=== PATIENT | female | born 1975 | race Caucasian/White ===

== ENCOUNTER → 2018-04-06 | Outpatient (CLI) | payer OTHER ==
[2018-04-08 13:09] LABS: HPV 16 Negative (Negative); HPV 18 Negative (Negative); HPV OTHER HR TYPES Negative (Negative)
== END | disposition home or self-care (01) ==
LOC: LAB SHORT 15:44 → LAB 15:44
PROVIDERS: Obstetrics & Gynecology
DX: Z01.419 Encounter for gynecological examination (general) (routine) without abnormal findings (principal)
CPT/HCPCS: 87624; G0123

== ENCOUNTER 2018-07-28 12:10 | Inpatient (IN) | payer OTHER ==
[~2018-07-28] VITALS: Ht 162.6 cm; Wt 86.9 kg
[2018-07-28] MEDS ORDERED: LEVSOD75 PO (12:32)
[2018-07-28] MEDS ORDERED: FURO20 PO (12:33)
[2018-07-28] MEDS ORDERED: POTCHL20ER PO (12:34)
[2018-07-28] MEDS ORDERED: VIENVA-28 TABL1 EACH PO (12:47)
[2018-07-28] MEDS ORDERED: PRED20 PO (12:47)
[2018-07-28 13:14] LABS: BASOPHILS ABSOLUTE AUTO 0.02 K/mm3 (0.00-0.23); BASOPHILS PERCENT AUTO 0 % (0-2); EOSINOPHILS ABSOLUTE AUTO 0.54 K/mm3 (0.00-0.68); EOSINOPHILS PERCENT AUTO 3 % (0-6); Hematocrit 42.2 % (33.0-51.0); Hemoglobin 13.4 g/dL (11.5-16.0); IMMATURE GRAN ABSOLUTE AUTO 0.12 K/mm3 (0.00-0.10); IMMATURE GRAN PERCENT AUTO 1 % (0-1); LYMPHOCYTES ABSOLUTE AUTO 4.49 K/mm3 (0.84-5.20); LYMPHOCYTES PERCENT AUTO 23 % (21-46); MONOCYTES ABSOLUTE AUTO 1.42 K/mm3 (0.16-1.47); MONOCYTES PERCENT AUTO 7 % (4-13); Mean Corpuscular HGB Conc 31.8 g/dL (31.5-36.5); Mean Corpuscular Volume 101 fL (80-100); Mean Platelet Volume 10.8 fL (9.1-12.4); NEUTROPHILS ABSOLUTE AUTO 12.63 K/mm3 (1.96-9.15); NEUTROPHILS PERCENT AUTO 66 % (41-73); NRBC ABSOLUTE 0.07 K/mm3 (0.00-0.02); NRBC Auto 0.4 /100 WBC (0.0-0.2); Platelet Count 117 K/mm3 (150-400); RDW Coefficient Variation 14.5 % (11.7-14.2); RDW Standard Deviation 53.3 fL (35.1-46.3); Red Blood Cell Count 4.19 M/mm3 (3.80-5.20); White Blood Cell Count 19.22 K/mm3 (4.00-11.30)
--- NOTE | 2018-07-28 13:37 | NUR ---
ECHOCARDIOGRAM COMPLETE
[2018-07-28 13:50] LABS: Alanine Aminotransfer (ALT/SGP 572 U/L (12-78); Albumin, Blood 3.2 g/dL (3.4-5.0); Albumin/Globulin Ratio 1.1 (0.8-1.8); Alk Phos 117 U/L (50-136); Anion Gap 12 mmol/L (6-16); Aspartate Aminotrans (AST/SGOT 124 U/L (12-37); Bilirubin, Total 1.9 mg/dL (0.1-1.0); Blood Urea Nitrogen 24 mg/dL (8-24); Bun/Creatinine Ratio 26.1 (12.0-20.0); CO2, Blood 21 mmol/L (21-32); Calcium, Blood 8.2 mg/dL (8.5-10.1); Chloride, Blood 105 mmol/L (98-108); Creatinine, Blood 0.92 mg/dL (0.40-1.00); Globulin, Blood 2.8 g/dL (2.2-4.0); Glomerular Filtration Rate >60 (60-); Glucose, Blood 135 mg/dL (70-99); Potassium, Blood 3.9 mmol/L (3.5-5.5); Sodium, Blood 138 mmol/L (136-145); Thyroxine (T4) 12.2 ug/dL (4.8-13.9)
[2018-07-28 18:04] LABS: International Normalized Ratio 1.66; Prothrombin Time Results 16.8 Sec (9.7-11.5)
--- NOTE | 2018-07-28 18:45 | NUR ---
SHIFT SUMMARY PT A DIRECT ADMIT THIS AFTERNOON FROM DR. GUTIERREZ'S OFFICE. PT ALERT AND ORIENTED X3. PT HAS HAD A CTA THAT WAS FOUND TO HAVE PULMONARY EMBOLISM. DR. GUTIERREZ AWARE AND PE HEPARIN PROTOCOL TO BE STARTED PER PHARMACY. DR. GASPAR WAS CONSULTED AND ASSESSED PT THIS EVENING. NEW ORDERS FOR IV LASIX BID TO BE GIVEN. PT REPORTS PAIN IN LEFT LEG WITH AMBULATION BUT REPORTS NO PAIN WHEN SITTING IN BED. TELE IN PLACE AND HR 120'S. DR. GASPAR AWARE AND NO NEW ORDERS AT THIS TIME. REPORT GIVEN TO NOC RN. CALL LIGHT IN REACH.
[2018-07-29 02:12] LABS: BASOPHILS ABSOLUTE AUTO 0.01 K/mm3 (0.00-0.23); BASOPHILS PERCENT AUTO 0 % (0-2); EOSINOPHILS ABSOLUTE AUTO 0.04 K/mm3 (0.00-0.68); EOSINOPHILS PERCENT AUTO 0 % (0-6); Hematocrit 40.4 % (33.0-51.0); IMMATURE GRAN ABSOLUTE AUTO 0.05 K/mm3 (0.00-0.10); IMMATURE GRAN PERCENT AUTO 0 % (0-1); LYMPHOCYTES ABSOLUTE AUTO 1.56 K/mm3 (0.84-5.20); LYMPHOCYTES PERCENT AUTO 14 % (21-46); MONOCYTES PERCENT AUTO 3 % (4-13); Mean Corpuscular HGB 32.2 pg (26.0-34.0); Mean Corpuscular HGB Conc 32.2 g/dL (31.5-36.5); Mean Corpuscular Volume 100 fL (80-100); Mean Platelet Volume 10.5 fL (9.1-12.4); NEUTROPHILS ABSOLUTE AUTO 9.49 K/mm3 (1.96-9.15); NEUTROPHILS PERCENT AUTO 83 % (41-73); NRBC ABSOLUTE 0.02 K/mm3 (0.00-0.02); NRBC Auto 0.2 /100 WBC (0.0-0.2); Platelet Count 118 K/mm3 (150-400); RDW Coefficient Variation 14.2 % (11.7-14.2); Red Blood Cell Count 4.04 M/mm3 (3.80-5.20); White Blood Cell Count 11.45 K/mm3 (4.00-11.30)
[2018-07-29 02:24] LABS: Anion Gap 10 mmol/L (6-16); Blood Urea Nitrogen 25 mg/dL (8-24); Bun/Creatinine Ratio 31.2 (12.0-20.0); CO2, Blood 24 mmol/L (21-32); Chloride, Blood 104 mmol/L (98-108); Glomerular Filtration Rate >60 (60-); Glucose, Blood 186 mg/dL (70-99); Potassium, Blood 4.2 mmol/L (3.5-5.5); Sodium, Blood 138 mmol/L (136-145)
--- NOTE | 2018-07-29 04:39 | NUR ---
SHIFT SUMMARY PT ALERT AND ORIENTED. VERY COOPERATIVE WITH CARE. HEPARIN BOLUS OF 5250 GIVEN AND DRIP HUNG AT RATE OF 15 UNITS/KG/HOUR AND 21 ML/HR ORDERED. VERIFIED WITH SECOND RN JESSE KARIMI. PT WITH SOME SOB WITH EXERTION. BLE'S EDEMATOUS 3+ ALTHOUGH PT REPORTS IMPROVEMENT ALREADY WITH FIRST DOSE OF IV LASIX GIVEN. GOOD OUTPUT THIS SHIFT. RASH TO BUE'S AND STOMACH THAT PT REPORTS SHE HAS HAD FOR APPROX 1 WEEK. PT DENIES CHEST PAIN. HEART RATE REMAINS TACHY IN THE HIGH 110'S TO LOW 120'S. MD AWARE. NO COMPLAINTS THIS EVENING. VSS. AT BEDSIDE THROUGHOUT THE NIGHT. WILL CONTINUE TO MONITOR AND REPORT TO DAY RN.
[2018-07-29 08:51] LABS: Anion Gap 10 mmol/L (6-16); Blood Urea Nitrogen 22 mg/dL (8-24); Bun/Creatinine Ratio 26.1 (12.0-20.0); CO2, Blood 27 mmol/L (21-32); Calcium, Blood 8.2 mg/dL (8.5-10.1); Chloride, Blood 102 mmol/L (98-108); Creatinine, Blood 0.84 mg/dL (0.40-1.00); Glomerular Filtration Rate >60 (60-); Glucose, Blood 161 mg/dL (70-99); Magnesium, Blood 2.6 mg/dL (1.6-2.4); Sodium, Blood 139 mmol/L (136-145)
[2018-07-29 11:58] LABS: Antinuclear Antibody Screen Positive (Negative)
[2018-07-29 11:59] LABS: ANA Pattern Homogenous
--- NOTE | 2018-07-29 16:41 | NUR ---
SHIFT SUMMARY- PT HR HAS BEEN TACHYCARDIC ALL SHIFT. DR GASPAR ORDERED METOPROLOL TO START AT NOON, DOES NOT WANT TO GIVE AT THE SAME TIME IV LASIX. PT BP HOLDING IN THE 120'S. HEART RATE REDUCED FOR A LITTLE BIT AFTER THE METOPROLOL BUT IS BACK UP IN THE 120'S NOW. PT HAS BILATERAL PE'S WELL DVT'S. PT DENIES PAIN WELL N/T AT THIS TIME. ON A HEPRIN DRIP RUNNING INTO A 2OG RIGHT AC IV. PT INDEPENDENT IN THE ROOM TO THE BATHROOM AND BACK TO BED, LIMITED ACTIVITY CURRENTLY PT STATES HER HEEL IS TOO UNCOMFORTABLE DO DO ALOT OF WALKING. PT ALERT, ORIENTED AND CALL LIGHT IS IN REACH, SPOUSE IS AT THE BEDSIDE. WILL CTM AND PASS ON TO NIGHT RN IN BEDSIDE REPORT.
--- NOTE | 2018-07-29 17:12 | NUR ---
PT STATED SHE HAS A TIGHTNESS IN THE RIGHT SIDE OF HER NECK THAT WAS NOT THERE THIS MORNINGCAROTID PULSE IS FULL AND BOUNDING IN THE RIGHT SIDE, PALPABLE ON THE LEFT. RIGHT SIDE PULSE IS VISIBLE FROM A DISTANCE, CALLED ANSWERING SERVICE AND WAS TOLD TO CALL HOSPITALIST FOR THIS PT.
--- NOTE | 2018-07-29 17:26 | NUR ---
PT C/O TIGHTNESS IN THE RIGHT SIDE OF HER NECK, ON ASSESSMENT PT HAS A FULL VISIBLY BOUNDING PULSE IN THE RIGHT PALPABLE IN THE LEFT. JVD NOTED IN THE RIGHT NOT IN THE LEFT. THIS WAS NOT THE CASE THIS MORNING. CALLED ANSWERING SERVICE, WILL HAVE TO CALL THE NIGHT HOSPITALIST ABOUT THIS PT.
--- NOTE | 2018-07-29 17:29 | NUR ---
CALLED NIGHT HOSPITALIST DR BROCK- SPOKE BRIEFLY ABOUT THE PT SITUATION AND MULTIPLE CLOTS IN THE LUNG AND LEGS AND NOW THE JVD NOTED IN THE RIGHT AND NOT THE LEFT. SHE IS CURRENTLY REVIEWING THE PT CHART AND WILL PUT IN ORDERS.
[2018-07-30 01:17] LABS: Anion Gap 12 mmol/L (6-16); Blood Urea Nitrogen 26 mg/dL (8-24); CO2, Blood 21 mmol/L (21-32); Calcium, Blood 7.9 mg/dL (8.5-10.1); Chloride, Blood 103 mmol/L (98-108); Creatinine, Blood 0.79 mg/dL (0.40-1.00); Glomerular Filtration Rate >60 (60-); Glucose, Blood 191 mg/dL (70-99); Potassium, Blood 4.5 mmol/L (3.5-5.5); Sodium, Blood 136 mmol/L (136-145)
--- NOTE | 2018-07-30 07:00 | NUR ---
ASSUMED CARE OF PT- PT ALERT AND ORIENTED, INDEPENDENT IN THE ROOM. PT DENIES ANY PAIN OR N/T LUNGS CLEAR PT HR 99 ON TELE PER FURNACE CONVERTER J LUIS. PER REPORT FROM NIGHT RN PT HAD A 6 BEAT RUN OF V-TACH FOLLOWED BY SINUS TACHYCARDIA IN THE 160-200 RANGE. HOSPITALIST CALLED AND IV METOPROLOL ORDERED, NOT GIVEN, PT PULSE DROPPED BACK TO NRS 98 ON ITS OWN. WILL DISCUSS WITH FILM LOADER WHEN HE ROUNDS ON THE PT.
--- NOTE | 2018-07-30 07:06 | NUR ---
SHIFT SUMMARY PT A/O INDEPENDENT. HEPARIN DRIP. C/O ITCHINESS AND GOT ORDER FOR BENADRYL FROM DR BROCK. TELE SHOWED SINUS TACH 113 TO 104 TO HR IN THE 90'S. SHE WAS ABLE TO SLEEP OFF AND ON T/O NIGHT. AT 0520 TELE NOTIFIED OF 6 BEAT RUN OF V TACH AND THEN HR IN THE 160'S THEN 140'S. NOTIFIED DR DARLING AND HE ORDERED IV LOPRESSOR. HR CAME BACK DOWN INTO 90'S SO IV LOPRESSOR WAS NOT GIVEN. REPORT GIVEN TO DAY RN.
[2018-07-30 08:10] LABS: COMPLEMENT C3, SERUM 72 mg/dL (82-167); COMPLEMENT C4, SERUM 6 mg/dL (14-44)
--- NOTE | 2018-07-30 09:40 | NUR ---
PT HAS NEW MEDS TO IMPROVE CARDIAC FUNCTION, HR 99 LUNGS CLEAR IN ALL LOBES, DR CONTI JUST SAW THE PT AND WAS UPDATED ON THE EVENTS OF LAST NIGHT. DR CONTI WANTS TO BE CALLED NOT THE NIGHT HOSPITALIST, ANSWERING SERVICE INCORRECT. PT NEW MEDICATIONS GIVEN LISINOPRIL AND METOPROLOL ALONG WITH MORNING LASIX. BP STABLE AT THIS TIME, WILL CTM. PT INSTRUCTED TO CALL IF SHE FEELS DIFFERENT.
--- NOTE | 2018-07-30 10:30 | NUR ---
PT CALLED STATED SHE WAS FEELING "OFF" FELLING "WOOSY" HR 99 ON TELE RLL OF LUNGS COARSE RESP RATE 24, PT DENIES BEING SOB, APPEARS PALE. PT SPOUSE STATED SHE SEEMS LIKE SHE IS SHORT OF BREATH. PEDAL PULSES PALPABLE NOW, HAD TO USE THE DOPLER THIS MORNING. NO CHEST PAIN OR NUMBNESS AND TINGLING. PT APPEARS CLAM, JUST BREATHING FAST.
--- NOTE | 2018-07-30 10:50 | NUR ---
TELE CALLED PT HAD 4 BEAT RUN OF V-TACH NOW RUNNING SINUS TACH AT 160'S, PT DENIES SOB, N/T, OR CHEST PAIN. HIGH VEWS SCORE OF 5. INFORMED SERVICE DESK ANALYST AND CALLED DR CONTI, RECIEVED AN ORDER OF PO METOPROLOL ONE TIME DOSE 25MG. VERIFIED BY PHARMACY AND GIVEN (SEE EMAR FOR DETAILS).
--- NOTE | 2018-07-30 11:10 | NUR ---
CALLED SHUTTLE FILLER ON TODAY D/T PREVIOUS SHUTTLE FILLER BEING OUT OF TOWN ([place]) CALL WENT TO DR OLINDA MARTINEZVTMORENA, LEFT A MESSAGE REQUESTING A CALL BACK. DR CONTI WANTED TO ENSURE THE PT WAS SEEN AGAIN TODAY BY CARDIOLOGY.
--- NOTE | 2018-07-30 11:50 | NUR ---
CALLED DR CONTI- PT TACHYCARDIA STILL PERSISTING, REQUESTED A TRANSFER TO PCU, PT NOT APPROPRIATE FOR MEDICAL FLOOR AT THIS TIME. RECIEVED ORDER FOR IN HOUSE TRANSFER TO PCU FOR THIS PT. 1153- TELE CALLED PT HR BACK DOWN TO 98.
--- NOTE | 2018-07-30 12:28 | NUR ---
ASSUMED CARE OF PT PT ALERT AND ORIENTED. VS STABLE. O2 SATS REMAIN ABOVE 92% ON 2L NC. HR IS NSR TO SINUS TACH WITH A RATE 90-105'S. PT DENIES ANY PAIN. EDEMA NOTED TO BLE 1+. PT REPORTS LEGS CRAMP WITH MINIMAL ACTIVITY. PULSES PALPABLE. BERNICE HOES IN PLACE. LS CLEAR, BUT DIMINISHED IN THE BASES. PT SITTING UP EATING LUNCH. AT BEDSIDE. WILL CONTINUE TO MONITOR CLOSELY.
--- NOTE | 2018-07-30 12:30 | NUR ---
CALLED REPORT TP ONION FARMER- PT TAKEN DOWN BY NURSING STAFF TO PCU 5. TELE AND IV PUMP WENT WITH THE PT WELL HER SPOUSE AND BELONGINGS. PT ON O2 AT 2L VIA NC D/T HIGH RESP RATE EARLIER. ONION FARMER AWARE.
--- NOTE | 2018-07-30 18:10 | NUR ---
SHIFT SUMMARY PT ALERT AND ORIENTED. VS STABLE. SINCE ADMISSION TO UNIT HR HAS BEEN 80-90'S. CARDIOLOGY IN TO ASSESS PT WITH SOME CHANGES IN MEDICATIONS. PT DENIES FEELING SOB. LEG EDEMA HAS IMPROVED. PT ABLE TO TRANSFER TO BATHROOM NEEDED WITH SBA. NO OTHER CHANGES NOTED AT THIS TIME. WILL CONTINUE TO MONITOR AND REPORT TO ONCOMING RN. CALL LIGHT IN REACH.
--- NOTE | 2018-07-30 20:12 | NUR ---
PM NOTE. ASSUMED CARE OF PT APROX 1900, PT IS A&Ox4 AND IND IN THE ROOM. PT WAS ADMITTED FOR NEW ONSET CHF, PT WAS ALSO FOUND TO HAVE BILATERAL P.E. AND DVTS. PT IS ON A HEPARIN GTT AT 17 U/KG/HR AT 23.8 MLS/HR AT A DOSE WT OF 70KG. PT HAS KNEE HIGH BERNICE HOSE IN PLACE. PT DENIES ANY CALF PAIN/TENDERNESS AT THIS TIME, BUT STATES THAT HER LEFT LEG/UPPER THIGH FEELS "TIGHT" DUE TO THE EDMEA SHE CURRENTLY HAS. PT CHELY ANY SOB EXCEPT WITH ACTIVTY, BUT PT STATES THIS IS IMPROVING WELL, PT IS CURRENTLY ON RA AT 96%. PT DENIES ANY CHEST PAIN/PRESSURE AT THIS TIME WELL. TELE INTACT, NSR IN THE 90'S PER PROFESSOR OF ENGINEERING, PT'S BP 117/84, PT HAS 1+ EDEMA TO HER BLE AND NONPITTING TO HER LEFT UPPER LEG/THIGH. PT'S L/S CLEAR T/O AND SLIGHTLY DIM IN THE BASES. BT PRESENT AND HYPOACTIVE, ABD IS SOFT AND NONTENDER TO PALP. PT'S IS AT THE BEDSIDE, PT AND FAMILY APPEARE TO BE IN HIGH SPIRITS DISPITE THE SITUAION. CALL LIGHT IN REACH, BED IS LOCKED AND LOW WILL CONTINUE TO MONITOR.
[2018-07-31 04:35] LABS: Anion Gap 9 mmol/L (6-16); Blood Urea Nitrogen 27 mg/dL (8-24); Bun/Creatinine Ratio 33.2 (12.0-20.0); CO2, Blood 25 mmol/L (21-32); Calcium, Blood 8.2 mg/dL (8.5-10.1); Chloride, Blood 100 mmol/L (98-108); Creatinine, Blood 0.81 mg/dL (0.40-1.00); Glomerular Filtration Rate >60 (60-); Glucose, Blood 137 mg/dL (70-99); Potassium, Blood 4.1 mmol/L (3.5-5.5); Sodium, Blood 134 mmol/L (136-145)
--- NOTE | 2018-07-31 05:24 | NUR ---
SHIFT SUMMARY. NO ACUTE CHANGES NOTED THIS SHIFT. PT SLEPT WELL WITH SLEEP AID GIVEN PER EMAR. PT'S VS HAVE BEEN STABLE T/O SHIFT. PT HAS BEEN IND IN THE ROOM AND HAS BEEN ABLE TO WALK TO THE BATHROOM TO VOID W/O DIFFICULTY, SOB, CHEST PAIN OR LEG PAIN. NO BM THIS SHIFT. PT HAS BEEN ON RA T/O SHIFT. PT'S HAS BEEN AT THE BEDSIDE ALL SHIFT WELL. PT STATED CONCERN ABOUT SWELLING IN HER LEFT LEG, PT STATED THAT IT IS BETTER BUT STILL FEELS "TIGHT" IN HER UPPER THIGH AREA. PT HAS BEEN IN NSR ALL SHIFT, NO CARDIAC EVENTS NOTED ON TELE. HEPARIN GTT STILL RUNNING AT 17 U/KG/HR AND 23.8 MLS/HR AT A DOSE WT OF 70KG. CALL LIGHT IN REACH, BED IS LOCKED AND LOW WILL CONTINUE TO MONIOR UNTIL REPORT IS GIVEN TO ONCOMING RN.
--- NOTE | 2018-07-31 19:12 | NUR ---
SHIFT SUMMARY PT ALERT AND ORIENTED. VS STABLE. PT DENIES ANY CP OR SHORTNESS OF BREATH. PT INDEPENDENT IN ROOM. HEPARIN GTT INFUSING PER ORDERS. DR. CONTI IN TO SEE PT THIS EVENING. PT TO GO TO [employer] ARCHITECT IN THE AM. PT TO BE NPO AT MIDNIGHT. REPORT GIVEN TO COKE OVEN MASON RN.
[2018-07-31 22:05] LABS: ANTI-DSDNA ANTIBODIES 1 IU/mL (0-9); RNP ANTIBODIES <0.2 AI (0.0-0.9); SJOGREN'S ANTI-SS-A <0.2 AI (0.0-0.9); SJOGREN'S ANTI-SS-B <0.2 AI (0.0-0.9); SMITH ANTIBODIES <0.2 AI (0.0-0.9)
[2018-08-01 02:30] LABS: Anion Gap 10 mmol/L (6-16); Blood Urea Nitrogen 31 mg/dL (8-24); Bun/Creatinine Ratio 32.9 (12.0-20.0); CO2, Blood 25 mmol/L (21-32); Calcium, Blood 8.3 mg/dL (8.5-10.1); Chloride, Blood 97 mmol/L (98-108); Creatinine, Blood 0.94 mg/dL (0.40-1.00); Glomerular Filtration Rate >60 (60-); Glucose, Blood 162 mg/dL (70-99); Magnesium, Blood 2.7 mg/dL (1.6-2.4); Sodium, Blood 132 mmol/L (136-145)
--- NOTE | 2018-08-01 05:43 | NUR ---
SHIFT SUMMARY. EARLY PART OF SHIFT ASKED TO TAKE ALL HER MEDS W/ SLEEPERS / AND GIVEN LATE. DENIES ANY PAIN OR DISCOMFORT EXCEPT A FEW ABD CRAMPS/ REPORTS MOVING BOWELS OK. SR UNTIL 011, 4 BT V TACH PRECEDED SVT 140-150'S . ASYMPTOMATIC . ASLEEP WHEN THIS OCCURRED. VS WNL AND HAD LAB DRAWN 1 HR EARLY FOR MAG AND CHEM PANEL CHECK. BY 225 AFTER QUITE A FEW ATTEMPTS OF VALSALVA, CONVERTED TO SR. AND DR CONTI WAS NOT CALLED. ASYMPTOMATIC THRU THIS EVENT. LUNGS REMAIN CLEAR. FLUID RESTRICTION. MAINTAINED. DOZING ON AND OFF ALL NOC. STAND FOR WT NO SOB W/ THIS ACTIVITY.
[2018-08-01 09:32] LABS: International Normalized Ratio 1.75; Prothrombin Time Results 17.6 Sec (9.7-11.5)
--- NOTE | 2018-08-01 16:10 | NUR ---
PCU DAYSHIFT ASSUMED CARE OF PT APPROX. 0700. PT A&O X4. ASSESSMENT COMPLETED. VITAL SIGNS STABLE. PT ON ROOM AIR WITH SATS IN 90'S. DENIES SHORTNESS OF BREATH. SWELLING NOTED BILAT LEGS. LEFT LEG SLGIHT WORSE THAN RIGHT. SLIGHT PURPLE/ DISCOLORATION NOTED ON LEFT LEG. PT REPORTS THAT SHE HAS GAINED BACK FEELING IN LEFT LEG. BED IN LOW POSITION, CALL [facility] GERALDINE DEE AND PT DENIES ANY NEEDS AT THIS TIME.
--- NOTE | 2018-08-01 16:19 | NUR ---
PT TAKEN TO BEAUTY COUNSELOR VIA HEART CENTER STAFF.
--- NOTE | 2018-08-01 18:26 | NUR ---
SHIFT SUMMARY PT ARRIVED BACK TO UNIT APPROX. 1805. VIA BED. RECIVED REPORT FROM HEART CENTER STAFF. PT A&O X4. PT HAS RIGHT RADIAL SIDE WITH TR BAND IN PLACE AND ARM BOARD IN PLACE. RIGHT AC SIDE WELL, WITH DRESSING IN PLACE. NO S/SX OF HEMATOMA, SWELLING OR BLEEDING. PT DENIES TENDERNESS. PT DENIES NUMBNESS IN DISTAL FINGERS. FINGERS AND TOES SLIGHTLY COLD TO TOUCH. HAVE CONTINUED TO WARM UP SINCE ARRIVAL BACK TO UNIT. PT ABLE TO EAT FOOD AND TOLERATING WELL. BERNICE HOSE PLACED BACK ON PT. ASSESSMENT FINDINGS REMAINS UNCHANGED SINCE THIS MORNING. VITAL SIGNS REMANINS STABLE AND HEART RHYTHM SINUS RHYTHM. BEGAN MONITOR VITAL PER ORDERS. BED IN LOW PSOITION, CALL LIGHT IN REACH AND PT DENIES ANY NEEDS AT THIS TIME. WILL CONTINUE TO MONITOR UNTIL HANDOFF TO NIGHTSHIFT RN.
[2018-08-02 04:26] LABS: International Normalized Ratio 1.81; Prothrombin Time Results 18.2 Sec (9.7-11.5)
--- NOTE | 2018-08-02 04:39 | NUR ---
TR BAND 0245 TR BAND FULLY DEFLATED. THIS HAS TAKEN A LITTLE LONGER THAN EXPECTED DUE TOSOME BLEEDING AT THE SITE. THIS INSTANCE WAS ONLY SLIGHT BLEEDING BUT THIS NURSE CHOSE TO SLOW THE RELEASE PROCESS DOWN. PT STATES FULL FEELING IN AFFECTED HAND, NO NUMBNESS OR TINGLING, SATS >94% ON AFFECTED THUMB. 0440 TR BAND HAS BEEN OFF FOR 30 MINUTES NOW, NO NEW SIGNS OF BLEEDING. WILL CONTINUE TO MONITOR. SITE TENDER BUT SOFT TO TOUCH.
[2018-08-02 04:45] LABS: Anion Gap 9 mmol/L (6-16); Blood Urea Nitrogen 33 mg/dL (8-24); Bun/Creatinine Ratio 32.7 (12.0-20.0); CO2, Blood 22 mmol/L (21-32); Calcium, Blood 8.3 mg/dL (8.5-10.1); Chloride, Blood 102 mmol/L (98-108); Creatinine, Blood 1.01 mg/dL (0.40-1.00); Glomerular Filtration Rate >60 (60-); Glucose, Blood 145 mg/dL (70-99); Magnesium, Blood 2.7 mg/dL (1.6-2.4); Potassium, Blood 4.9 mmol/L (3.5-5.5); Sodium, Blood 133 mmol/L (136-145)
--- NOTE | 2018-08-02 08:06 | NUR ---
END OF SHIFT SUMMARY ASSUMED CARE OF PT @1900. TR BAND/ARMBOARD RW, ARTERIAL ACCESS ON RAC WIH OCCLUSIVE DRESSING, THIS SITE HAD HAD MANUAL PRESSURE IN REIMBURSEMENT REP. TR BAND SLOWLY RELEASED THIS SHIFT THERE WAS AN INSTANCE OF BLEEDING. NO NEW BLEEDING HAS OCCURRED SINCE REMOVING TR BAND. PT EDUCATED TO WHY TO NOT MOVE WRIST MUCH OR LIFT WIITH IT. PT STATES LEG SWELLING HAS DECREASED SIGN IFICANTLY. PULSES STILL FAINT. LUNG SOUNDS CLEAR BUT DIM. PT DENIES ANY PAIN, CP, OR PRESSURE. DID HAV INSTANCE OF ACUTE/CHRONIC R ARM PAIN, MEDICATED PER EMAR. HAS BEEN AT BEDSIDE T/O NIGHT. VSS T/O SHIFT. ONCOMING NURSE ABILIO REPORT.
--- NOTE | 2018-08-02 08:20 | NUR ---
AM ASESSMENT: Pt resting in bed with at bedside. VSS. LS clear. HR reg. BT positive. Pulse palp. R wrist with imobilizer in place. No bleeding, swelling, oozing or hemaotma seen. R AC arterial site with Modesta patch in place. No bleeding, swelling, oozing or hematoma noted. Pt denies pain at this time. States that she has a small amount of tenderness at both sites with touch. Pt up independently in room. Call light in reach. Will monitor.
[2018-08-02 19:21] LABS: International Normalized Ratio 1.97; Prothrombin Time Results 19.6 Sec (9.7-11.5)
--- NOTE | 2018-08-02 19:43 | NUR ---
shift summary: Pt resting in bed with visitors at bedside. VSS throughout shift. NO changes in TR band and AC atrial sites. Pt has denied pain this shift. Order to start heprin gtt. Ptt was being drawn. NO other changes this shift. WIll report to night rn.
[2018-08-03 05:19] LABS: International Normalized Ratio 1.56
[2018-08-03 05:27] LABS: Magnesium, Blood 2.5 mg/dL (1.6-2.4)
[2018-08-03 05:33] LABS: Bun/Creatinine Ratio 29.4 (12.0-20.0); Calcium, Blood 8.2 mg/dL (8.5-10.1); Creatinine, Blood 1.09 mg/dL (0.40-1.00); Potassium, Blood 4.7 mmol/L (3.5-5.5)
[2018-08-03 05:49] LABS: Prothrombin Time Results 15.9 Sec (9.7-11.5)
--- NOTE | 2018-08-03 06:40 | NUR ---
a+o, at bedside assisting with care, replaced IV with PICC line due to challenge of getting iv started, room air, heparin infusing, call light in reach, will continue to monitor and treat until SBAR report provided to day shift.
--- NOTE | 2018-08-03 08:20 | NUR ---
AM ASSESSMENT: Pt resting in bed. VSS. LS clear. HR reg. Pulses palp. Edema improving. Pt states that she is feeling good. Anxious for a discharge. Pt understands the bridgeing from heprin to coumadin. R AC arterial access site with gudelia patch in place, no bleeding, swelling, hematoma or oozing noted. Pt R radial access site with tegaderm dressing and arm board in place. No bleeding, swelling, oozing or hematoma in place. Pt denies pain. L UA with powerglide in place. Heprin gtt running per orders. Pt denies needs or questions. Call light in reach. Will monitor.
[2018-08-03 11:16] LABS: Mean Platelet Volume 10.7 fL (9.1-12.4); Platelet Count 96 K/mm3 (150-400)
--- NOTE | 2018-08-03 18:17 | NUR ---
SHIFT SUMMARY: Pt resting in bed with at bedside. Has been independent in room this shift. VSS. LS clear. HR Reg. Pt has denied SOB or pain this shift. Heprin gtt has been running per orders throughout shift. No other changes. Stable at end of shift. Will report to night RN.
--- NOTE | 2018-08-04 00:30 | NUR ---
Assumed care of pt at approx 1900. VSS. pt in bed with at bedside. No complaints from pt, states she feels "better". Pt in no apparent sign of distress or discomfort. Pt is independant in room, alert and oriented, uses call light appropriately, makes needs known. Pt able to inform this RN of history of current illness, pt expresses correct knowledge of illness and is compliant with plan of care. See shift assessment for detailed assessment. Heprin drip infusing into MARISEL powerglide, no s/sx bleed or hematoma, no tenderness per pt. Rate verifed with NELLY Boykin. Will continue to monitor and update as needed.
[2018-08-04 04:51] LABS: Alanine Aminotransfer (ALT/SGP 213 U/L (12-78); Albumin, Blood 2.4 g/dL (3.4-5.0); Alk Phos 97 U/L (50-136); Anion Gap 4 mmol/L (6-16); Aspartate Aminotrans (AST/SGOT 31 U/L (12-37); Bilirubin, Total 1.9 mg/dL (0.1-1.0); Blood Urea Nitrogen 22 mg/dL (8-24); Bun/Creatinine Ratio 27.2 (12.0-20.0); CO2, Blood 33 mmol/L (21-32); Calcium, Blood 7.7 mg/dL (8.5-10.1); Chloride, Blood 100 mmol/L (98-108); Creatinine, Blood 0.81 mg/dL (0.40-1.00); Globulin, Blood 2.5 g/dL (2.2-4.0); Glomerular Filtration Rate >60 (60-); Glucose, Blood 200 mg/dL (70-99); Potassium, Blood 3.8 mmol/L (3.5-5.5); Sodium, Blood 137 mmol/L (136-145); Total Protein, Blood 4.9 g/dL (6.4-8.2)
[2018-08-04 04:53] LABS: International Normalized Ratio 1.48; Prothrombin Time Results 15.1 Sec (9.7-11.5)
--- NOTE | 2018-08-04 05:01 | NUR ---
Critical High aptt: 121.3 pharmacy notified and orders recieved to stop heprin gtt for 1 hour (5308-4100) then resume with an adjusted rate. No s/sx bleed at this time. will continue to monitor.
--- NOTE | 2018-08-04 05:23 | NUR ---
Shift Summary No acute changes this shift apart from cH aptt of 121.3. Heprin currently stopped for one hour (2015-5294) per pharmacy orders. VSS. Both R arm sites remains unchanged from initial assessment. Pt remains a&ox4, remains at bedside this shift. Pt sleeping for majority of this shift. No events on tele. pt uses call light appropriately, makes needs known, compliant with fluid restriction, independant in room. pt denies pain in bilat calf, denies SOB.Will continue to monitor and update as needed.
--- NOTE | 2018-08-04 18:04 | NUR ---
SHIFT SUMMARY PT ALERT AND ORIENTED. VS STABLE. PT DENIES ANY PAIN. HEPARIN GTT INFUSING PER ORDERS. PT INDEPENDENT IN ROOM. NO OTHER CHANGES NOTED THIS SHIFT. WILL CONTINUE TO MONITOR AND REPORT TO ONCOMING RN. CALL LIGHT IN REACH.
[2018-08-05 05:33] LABS: International Normalized Ratio 2.19; Prothrombin Time Results 21.6 Sec (9.7-11.5)
--- NOTE | 2018-08-05 05:51 | NUR ---
Shift Summary No acute changes this shift. VSS. Pt sleeping throughout the majority of shift. Denies chest pain or pressure, denies shortness of breath. Heprin continues to infuse without rate change. powerglide line draw patent. Pt remains alert and oriented, remains at bedside. Pt independant in room, calls appropriately, makes needs known. No events on tele. Will continue to monitor.
[2018-08-05] MEDS ORDERED: Tylenol325 MG PO (11:01)
[2018-08-05] MEDS ORDERED: LORATADINE10 MG PO (11:03)
[2018-08-05] MEDS ORDERED: METO25ER PO ×3 (11:10→14:50)
[2018-08-05] MEDS ORDERED: ONDA4 PO (11:12)
[2018-08-05] MEDS ORDERED: ENTRESTO 24 MG1 EACH PO (11:13)
[2018-08-05] MEDS ORDERED: TEMA15 PO (11:14)
[2018-08-05] MEDS ORDERED: WARF3 PO (11:15)
[2018-08-05] MEDS ORDERED: (None)20 M1 PO (14:45)
--- NOTE | 2018-08-05 15:30 | NUR ---
PT ALERT AND ORIENTED. ORDERS FOR DISCHARGE PLACED THIS AM. VS HAVE BEEN STABLE. DISCHARGE INSTRUCTIONS PROVIDED TO PT AND FAMILY. POWERGLIDE REMOVED. PT WALKED OUT WITH FAMILY MEMBER.
[2018-08-15 16:06] LABS: DRVVT 39.6 sec (0.0-47.0); PT 17.2 sec (9.6-11.5); PT 1:1NP 11.5 sec (9.6-11.5); PTT-LA 41.3 sec (0.0-51.9); THROMBIN NEUTRALIZATION 24.3 sec (0.0-23.0); THROMBIN TIME 91.5 sec (0.0-23.0); THROMBIN TIME MIX 34.8 sec (0.0-23.0)
== END 2018-08-05 15:46 | disposition home or self-care (01) | DRG 286 ==
LOC: MEDS 12:10 → PCU 07-30 12:01
PROVIDERS: Internal Medicine Cardiovascular Disease; Pharmacist; ADMIT Family Medicine
PROC: 4A023N8 Measurement of Cardiac Sampling and Pressure, Bilateral, Percutaneous Approach (ICD-10-PCS; principal; 2018-08-01)
PROC: B201YZZ Plain Radiography of Multiple Coronary Arteries using Other Contrast (ICD-10-PCS; 2018-08-01)
DX: I82.403 Acute embolism and thrombosis of unspecified deep veins of lower extremity, bilateral (principal); I26.99 Other pulmonary embolism without acute cor pulmonale; I50.21 Acute systolic (congestive) heart failure; E03.9 Hypothyroidism, unspecified; E66.01 Morbid (severe) obesity due to excess calories; D69.49 Other primary thrombocytopenia; Z95.2 Presence of prosthetic heart valve; E83.41 Hypermagnesemia
CPT/HCPCS: 36415; 71045; 71260; 80048; 80053; 81025; 83735; 83880; 84436; 84443; 85025; 85049; 85379; 85610; 85611; 85613; 85651; 85670; 85730; 85732; 86038; 86039; 86147; 86160; 86225; 86235; 86850; 86900; 86901; 93005; 93010; 93306; 93460; 93971; A9270; A9270-GY; C1751; C1769; C1894; J1644; J1650; J1940; J2250; J2405; J3010; J7030; J7040; J7512; Q0163; Q9967

== ENCOUNTER 2022-05-14 18:33 | Emergency (ER) | payer OTHER ==
[~2022-05-14] VITALS: Ht 160 cm; Wt 81.7 kg
[~2022-05-14 18:33] MED LIST: (None)20 M1 PO; ENTRESTO 49 MG1 EACH PO; FURO20 PO; LEVSOD75 PO; LORATADINE10 MG PO; METO25ER PO; ONDA4 PO; POTCHL20ER PO; PRED20 PO; TEMA15 PO; Tylenol325 MG PO; VIENVA-28 TABL1 EACH PO; WARF3 PO; XARELTO20 MG PO
== END 2022-05-14 22:21 | disposition home or self-care (01) ==
LOC: ER 18:33
DX: M79.661 Pain in right lower leg (principal); M79.662 Pain in left lower leg; Z79.890 Hormone replacement therapy; Z79.899 Other long term (current) drug therapy; Z88.5 Allergy status to narcotic agent
CPT/HCPCS: 93970; 99283-25

== ENCOUNTER 2022-06-30 11:45 | Inpatient (IN) | payer OTHER ==
[~2022-06-30] VITALS: Ht 160 cm; Wt 81.5 kg
[2022-06-30] VITALS (13 sets, daily range): BP systolic 88–101; BP diastolic 56–74
[2022-06-30] MEDS ORDERED: POTA8 (12:11)
[2022-06-30] MEDS ORDERED: FURO20 PO (12:11)
[2022-06-30 12:22] LABS: BASOPHILS ABSOLUTE AUTO 0.02 K/mm3 (0.00-0.23); BASOPHILS PERCENT AUTO 0 % (0-2); EOSINOPHILS PERCENT AUTO 0 % (0-6); IMMATURE GRAN ABSOLUTE AUTO 0.05 K/mm3 (0.00-0.10); IMMATURE GRAN PERCENT AUTO 1 % (0-1); LYMPHOCYTES ABSOLUTE AUTO 1.43 K/mm3 (0.84-5.20); LYMPHOCYTES PERCENT AUTO 17 % (21-46); MONOCYTES ABSOLUTE AUTO 0.67 K/mm3 (0.16-1.47); MONOCYTES PERCENT AUTO 8 % (4-13); Mean Corpuscular HGB 31.7 pg (26.0-34.0); Mean Corpuscular HGB Conc 31.5 g/dL (31.5-36.5); Mean Corpuscular Volume 101 fL (80-100); Mean Platelet Volume 9.5 fL (9.1-12.4); NEUTROPHILS ABSOLUTE AUTO 6.07 K/mm3 (1.96-9.15); NEUTROPHILS PERCENT AUTO 74 % (41-73); Platelet Count 287 K/mm3 (150-400); RDW Coefficient Variation 17.3 % (11.7-14.2); RDW Standard Deviation 63.2 fL (35.1-46.3); Red Blood Cell Count 1.23 M/mm3 (3.80-5.20); White Blood Cell Count 8.24 K/mm3 (4.00-11.30)
[2022-06-30 12:29] LABS: Hemoglobin 3.9 g/dL (11.5-16.0)
[2022-06-30 12:30] LABS: Hematocrit 12.4 % (33.0-51.0)
[2022-06-30 12:56] LABS: Albumin, Blood 3.6 g/dL (3.4-5.0); Albumin/Globulin Ratio 1.2 (0.8-1.8); Bilirubin, Direct 0.1 mg/dL (0.0-0.3); Bilirubin, Indirect 0.2 mg/dL (0.1-0.7); Bilirubin, Total 0.3 mg/dL (0.1-1.0); Bun/Creatinine Ratio 22.9 (12.0-20.0); Calcium, Blood 8.9 mg/dL (8.5-10.1); Creatinine, Blood 2.1 mg/dL (0.40-1.00); Globulin, Blood 2.9 g/dL (2.2-4.0); Magnesium, Blood 2.2 mg/dL (1.6-2.4); Potassium, Blood 4.3 mmol/L (3.5-5.5); Total Protein, Blood 6.5 g/dL (6.4-8.2)
[2022-06-30 14:57] LABS: Percent Saturation 2.2 % (15.0-50.0)
--- NOTE | 2022-06-30 18:52 | NUR ---
ADMIT NOTE RECIEVED REPORT FROM NELLY HUERTAS IN ED. PT TO ROOM, SBA TRANSFERED TO BED. PT REPORTING VAGINAL BLEEDING FOR APPOX 14 DAY, WORSENING OVER THE LAST 4 DAYS, REPORTING BLEEDING THROUGH TAPMON AND PAD EVERY 30 MINUTES. PT ALERT, ORIENTED x4; CALM AND COOPERATIVE WTIH CARE. PT RESTING IN BED, SBA IN ROOM. TELE SINUS /SINUS TACH, BP SOFT BUT IMPROVING. SPO2>90% ON RA, BREATHING EVEN AND UNLABORED, LS CLEAR. ABD SOFT, NONTEDNER, HYPERACTIVE BT, PT REPORTS HAVING N/V THIS AM, BUT DENIES AT THIS TIME. PT RECEIVED 2 UNITS OF PRBC, APPEARING TO TOLERATE WELL, STARTED 3 UNIT THIS EVENING, PLANS TO GIVE A 4TH AND RECHECK H&H AFTER. OTHER VSS. NO OTHER ACUTE CHANGES NOTED. EDUCATED PT ON ROOM AND CALL LIGHT, REQUESTED PT CALL TO GET OUT OF BED. PT ASKING ABOUT HOME MEDICATIONS, EDUCATED PT ON HOLD HOME MEDICATIONS AT THIS TIME, WILL REASSESS. WILL CONTINUE UNTIL REPORT GIVEN TO ONCOMING RN.
[2022-07-01 00:13] VITALS: BP 92/58
[2022-07-01 02:19] LABS: Bun/Creatinine Ratio 21.7 (12.0-20.0); Calcium, Blood 8.3 mg/dL (8.5-10.1); Creatinine, Blood 1.52 mg/dL (0.40-1.00); Potassium, Blood 3.8 mmol/L (3.5-5.5)
[2022-07-01 02:26] LABS: BASOPHILS ABSOLUTE AUTO 0.03 K/mm3 (0.00-0.23); BASOPHILS PERCENT AUTO 1 % (0-2); EOSINOPHILS ABSOLUTE AUTO 0.11 K/mm3 (0.00-0.68); EOSINOPHILS PERCENT AUTO 2 % (0-6); Hematocrit 26.1 % (33.0-51.0); Hemoglobin 9.2 g/dL (11.5-16.0); IMMATURE GRAN ABSOLUTE AUTO 0.04 K/mm3 (0.00-0.10); IMMATURE GRAN PERCENT AUTO 1 % (0-1); LYMPHOCYTES ABSOLUTE AUTO 1.42 K/mm3 (0.84-5.20); LYMPHOCYTES PERCENT AUTO 25 % (21-46); MONOCYTES ABSOLUTE AUTO 0.47 K/mm3 (0.16-1.47); MONOCYTES PERCENT AUTO 8 % (4-13); Mean Corpuscular HGB 30.9 pg (26.0-34.0); Mean Corpuscular HGB Conc 35.2 g/dL (31.5-36.5); Mean Platelet Volume 9.3 fL (9.1-12.4); NEUTROPHILS ABSOLUTE AUTO 3.67 K/mm3 (1.96-9.15); NEUTROPHILS PERCENT AUTO 64 % (41-73); Platelet Count 174 K/mm3 (150-400); RDW Coefficient Variation 17.1 % (11.7-14.2); RDW Standard Deviation 54.4 fL (35.1-46.3); Red Blood Cell Count 2.98 M/mm3 (3.80-5.20); White Blood Cell Count 5.74 K/mm3 (4.00-11.30)
[2022-07-01 02:30] LABS: Mean Corpuscular Volume 88 fL (80-100)
[2022-07-01 03:43] VITALS: BP 93/60
--- NOTE | 2022-07-01 04:47 | NUR ---
SHIFT SUMMARY PT A&Ox4, CALLS AND COMMUNICATE NEEDS APPROPRIATELY. SBA/IND TO BATHROOM, CONTINENT OF URINE, NO BM THIS SHIFT. PROVIDED PT WITH PADS FOR VAGINAL BLEEDING. PT RECEIVED PRBCs WNL, Hbg STABLE. BP SOFT WITH MAP> 65, ASYMPTOMATIC, DENIES CP/PRESSURE. SINUS 90'S AT REST, 130's WHEN AMBULATING TO BATHROOM, ASYMPTOMATIC. SpO2> 92% RA, DENIES SOB. PT NPO AT 0000. NO OTHER EVENTS, WILL REPORT TO ONCOMING RN.
[2022-07-01 07:57] LABS: Hematocrit 25.3 % (33.0-51.0); Hemoglobin 8.9 g/dL (11.5-16.0)
[2022-07-01 08:14] VITALS: BP 97/71
[2022-07-01 11:17] VITALS: BP 94/67
[2022-07-01 14:15] LABS: Hematocrit 24.4 % (33.0-51.0); Hemoglobin 8.5 g/dL (11.5-16.0)
[2022-07-01 15:47] VITALS: BP 98/66
--- NOTE | 2022-07-01 18:49 | NUR ---
PT SUMMARY: PT STILL WITH POSITIVE JVAGINAL BLEEDING PT REPORTED CHANGING PAD EVERY 2 HRS WITH EXTRA LARGE SIZE TAMPON ALSO REPORTED SOME MEDIUM SIZE CLOTS LAST HGB WAS DOWN TO 8.5 ORDERS PLACED TO HAVE 4PRBCU READY FOR PROCEDURE TOMORROW. TO KEEP PT NPO TO PLAN ABLATION TOMORROW AT 11AM, PT MADE AWARE OF ALL THE PLAN OF CARE FOR TOMORROW. OTHERWISE PT DENIES ANY PAIN HAD BEEN AMBULATING TO THE BATHROOM, DIET HAS BEEN RESUMED PT TOLERATED WELL. VITALS HRR SR TACH UPS TO 150'S WITH AMBULATION 100'S WHEN AT REST, SBP SOFT >90'S MAP >65, SATS ABOVE 95% ON RA, AFEBRILE. NS STILL RUNNING AT 100MLS/HR. NO OTHER ISSUES AT THIS TIME, PT ABLE TO MAKE NEEDS KNOWN, CALL LIGHTS WITHIN REACH WILL REPORT TO ONCOMING SHIFT
[2022-07-01 19:48] VITALS: BP 101/72
[2022-07-01 21:07] LABS: Hematocrit 24.4 % (33.0-51.0); Hemoglobin 8.3 g/dL (11.5-16.0)
[2022-07-02] VITALS (18 sets, daily range): BP systolic 85–113; BP diastolic 56–83
[2022-07-02 03:38] LABS: BASOPHILS ABSOLUTE AUTO 0.02 K/mm3 (0.00-0.23); BASOPHILS PERCENT AUTO 0 % (0-2); EOSINOPHILS ABSOLUTE AUTO 0.05 K/mm3 (0.00-0.68); EOSINOPHILS PERCENT AUTO 1 % (0-6); Hematocrit 21.1 % (33.0-51.0); Hemoglobin 7.1 g/dL (11.5-16.0); IMMATURE GRAN ABSOLUTE AUTO 0.03 K/mm3 (0.00-0.10); IMMATURE GRAN PERCENT AUTO 1 % (0-1); LYMPHOCYTES PERCENT AUTO 24 % (21-46); MONOCYTES ABSOLUTE AUTO 0.43 K/mm3 (0.16-1.47); MONOCYTES PERCENT AUTO 7 % (4-13); Mean Corpuscular HGB 30.1 pg (26.0-34.0); Mean Corpuscular HGB Conc 33.6 g/dL (31.5-36.5); Mean Corpuscular Volume 89 fL (80-100); Mean Platelet Volume 9.2 fL (9.1-12.4); NEUTROPHILS ABSOLUTE AUTO 3.85 K/mm3 (1.96-9.15); NEUTROPHILS PERCENT AUTO 67 % (41-73); NRBC ABSOLUTE 0.02 K/mm3 (0.00-0.02); NRBC Auto 0.3 /100 WBC (0.0-0.2); Platelet Count 164 K/mm3 (150-400); RDW Coefficient Variation 17.7 % (11.7-14.2); RDW Standard Deviation 56.6 fL (35.1-46.3); Red Blood Cell Count 2.36 M/mm3 (3.80-5.20); White Blood Cell Count 5.78 K/mm3 (4.00-11.30)
[2022-07-02 03:58] LABS: Albumin, Blood 2.5 g/dL (3.4-5.0); Anion Gap 3 mmol/L (6-16); Blood Urea Nitrogen 18 mg/dL (8-24); Bun/Creatinine Ratio 15.8 (12.0-20.0); CO2, Blood 22 mmol/L (21-32); Calcium, Blood 7.8 mg/dL (8.5-10.1); Chloride, Blood 114 mmol/L (98-108); Creatinine, Blood 1.14 mg/dL (0.40-1.00); Glomerular Filtration Rate 59 (60-); Glucose, Blood 112 mg/dL (70-99); Phosphorus, Blood 2.3 mg/dL (2.5-4.9); Potassium, Blood 3.7 mmol/L (3.5-5.5); Sodium, Blood 139 mmol/L (136-145)
--- NOTE | 2022-07-02 05:03 | NUR ---
Assumed care of pt at 1900. A/Ox4, cooperative with care and calls appropriately. Maintains over 95% on RA. Denies any current CP/pressure. SBP in 90s with MAP in 70's. HR 90-110 at rest, but up to 170's with minimal activity. Hgb drop from 8.3 to 7.1, patient asymptommatic at this time. Vaginal bleeding continues. Patient has been NPO since midnight. Will report to dayshift NELLY.
--- NOTE | 2022-07-02 10:42 | NUR ---
07/02/22 1042 OFREIGN CACERES ABLATION READING AT END OF PROCEDURE = 4.5CMX2.5CM. 62W. 90ML DEFICIT.
--- NOTE | 2022-07-02 17:54 | NUR ---
SHIFT SUMMARY; ASSUMED CARE AT 0700. A/A/OX4. 1 UNIT PRBC STARTED EARLY IN SHIFT. TAKEN TO SURGERY AT 0900. RETURNED TO ROOM POST SURGERY WITH TRANSFUSION COMPLETE. MOVES SELF ON GURNEY, AMBULATES WITH ASSISTANCE TO RESTROOM. NO VAGINAL BLEEDING POST SURGERY, VSS, WILL CONTINUE TO MONITOR AND TREAT UNTIL CHANGE OF SHIFT.
[2022-07-03 01:25] VITALS: BP 111/85
[2022-07-03 04:03] LABS: BASOPHILS ABSOLUTE AUTO 0.01 K/mm3 (0.00-0.23); BASOPHILS PERCENT AUTO 0 % (0-2); EOSINOPHILS PERCENT AUTO 0 % (0-6); Hematocrit 23.4 % (33.0-51.0); Hemoglobin 7.9 g/dL (11.5-16.0); IMMATURE GRAN ABSOLUTE AUTO 0.03 K/mm3 (0.00-0.10); IMMATURE GRAN PERCENT AUTO 1 % (0-1); LYMPHOCYTES ABSOLUTE AUTO 0.58 K/mm3 (0.84-5.20); LYMPHOCYTES PERCENT AUTO 9 % (21-46); MONOCYTES ABSOLUTE AUTO 0.25 K/mm3 (0.16-1.47); MONOCYTES PERCENT AUTO 4 % (4-13); Mean Corpuscular HGB 28.8 pg (26.0-34.0); Mean Corpuscular HGB Conc 33.8 g/dL (31.5-36.5); Mean Corpuscular Volume 85 fL (80-100); Mean Platelet Volume 9.3 fL (9.1-12.4); NEUTROPHILS ABSOLUTE AUTO 5.51 K/mm3 (1.96-9.15); NEUTROPHILS PERCENT AUTO 86 % (41-73); NRBC ABSOLUTE 0.02 K/mm3 (0.00-0.02); NRBC Auto 0.3 /100 WBC (0.0-0.2); Platelet Count 193 K/mm3 (150-400); RDW Coefficient Variation 19.3 % (11.7-14.2); RDW Standard Deviation 59.7 fL (35.1-46.3); Red Blood Cell Count 2.74 M/mm3 (3.80-5.20); White Blood Cell Count 6.38 K/mm3 (4.00-11.30)
[2022-07-03 04:24] LABS: Albumin, Blood 2.6 g/dL (3.4-5.0); Anion Gap 5 mmol/L (6-16); Blood Urea Nitrogen 13 mg/dL (8-24); CO2, Blood 20 mmol/L (21-32); Calcium, Blood 8.1 mg/dL (8.5-10.1); Chloride, Blood 113 mmol/L (98-108); Glomerular Filtration Rate 69 (60-); Glucose, Blood 148 mg/dL (70-99); Phosphorus, Blood 2.3 mg/dL (2.5-4.9); Potassium, Blood 3.9 mmol/L (3.5-5.5); Sodium, Blood 138 mmol/L (136-145)
[2022-07-03 04:49] VITALS: BP 104/66
--- NOTE | 2022-07-03 05:04 | NUR ---
END OF SHIFT HGB 7.9, PT INDEPENDENT IN ROOM, REPORTS SLIGHT DISCHARGE THAT IS WILHELM/BROWN, NO ACTIVE BLEEDING OR CLOTS SINCE PROCEDURE, VSS, AFEBRILE, PT DID REQUEST HOME DOSE OF LASIX 20 MG THIS AM SHE FEELS HER HANDS AND KNEES ARE SWELLING
[2022-07-03 07:56] VITALS: BP 120/74
[2022-07-03] MEDS ORDERED: B-121000 MC7 PO (10:55)
[2022-07-03] MEDS ORDERED: SODIUM FERRIC GLUCON IV (11:01)
[2022-07-03 11:34] VITALS: BP 119/82
--- NOTE | 2022-07-03 11:42 | NUR ---
DISCHARGE NOTE. REMOVED BOTH PERIPHERAL IVS AND REVIEWED DISCHARGE EDUCATION WITH PATIENT AT BEDSIDE. MEDICATION CHANGES REVIEWED AND PATIENT VERBALIZED UNDERSTANDING. PATIENT MADE AWARE OF APPOINTMENT SCHEDULED FOR IV IRON SUPPLEMENT ON 0830 ON 07/04/22 AT THE AMBULATION CLINIC. PATIENT VERBALIZED PLANS TO ATTEND WELL SCHEDULE AN ADDITIONAL APPOINTMENT THAT MAY FIT HER SCHEDULE. PATIENT EDUCATION HANDOUTS REVIEWED AT BEDSIDE AND PROVIDED FOR USE OUTSIDE OF FACILITY. PATIENT INSTRUCTED TO SCHEDULE FOLLOWUP APPOINTMENTS WITH PROVIDERS AND RETURN TO ED IF SYMPTOMS REOCCUR AND CONDITION WORSENS. ALL BELONGINGS SENT HOME WITH PATIENT. NO FURTHER DISCHARGE NEEDS IDENTIFIED AT THIS TIME.
== END 2022-07-03 12:08 | disposition home or self-care (01) | DRG 742 ==
LOC: ER 11:45 → PCU 14:34
PROVIDERS: Emergency Medicine; Obstetrics & Gynecology; Physician Assistant; ADMIT Family Medicine
PROC: 30233N1 Transfusion of Nonautologous Red Blood Cells into Peripheral Vein, Percutaneous Approach (ICD-10-PCS; principal; 2022-06-30)
PROC: 0U5B8ZZ Destruction of Endometrium, Via Natural or Artificial Opening Endoscopic (ICD-10-PCS; 2022-07-02)
DX: N93.8 Other specified abnormal uterine and vaginal bleeding (principal); D62 Acute posthemorrhagic anemia; D68.61 Antiphospholipid syndrome; E87.1 Hypo-osmolality and hyponatremia; N17.9 Acute kidney failure, unspecified; I42.0 Dilated cardiomyopathy; D51.9 Vitamin B12 deficiency anemia, unspecified; Z68.30 Body mass index [BMI] 30.0-30.9, adult; D50.9 Iron deficiency anemia, unspecified; E83.39 Other disorders of phosphorus metabolism; E88.09 Other disorders of plasma-protein metabolism, not elsewhere classified; E03.9 Hypothyroidism, unspecified; I95.9 Hypotension, unspecified; E66.9 Obesity, unspecified; N92.0 Excessive and frequent menstruation with regular cycle; Z96.653 Presence of artificial knee joint, bilateral; I34.0 Nonrheumatic mitral (valve) insufficiency; Z86.711 Personal history of pulmonary embolism; Z86.718 Personal history of other venous thrombosis and embolism; Z79.890 Hormone replacement therapy; Z98.890 Other specified postprocedural states; Z88.5 Allergy status to narcotic agent; Z79.01 Long term (current) use of anticoagulants; Z79.899 Other long term (current) drug therapy
CPT/HCPCS: 36415; 36430; 80048; 80053; 80069; 82248; 82607; 82728; 82746; 83540; 83550; 83735; 85014; 85018; 85025; 86850; 86900; 86901; 86923; 93005; 93010; 96360; 99285-25; A9270; J2250; J2704; J2916; J3010; J7030; J7050; J7120; P9016

== ENCOUNTER 2022-07-04 00:09 | Day surgery (SDC) | payer OTHER ==
[~2022-07-04 00:09] MED LIST changes: +B-121000 MC7 PO; +POTA8; +SODIUM FERRIC GLUCON IV
[2022-07-04 08:41] VITALS: BP 99/64
== END 2022-07-04 09:49 | disposition home or self-care (01) ==
LOC: ATC 00:09
DX: D50.9 Iron deficiency anemia, unspecified (principal); E03.9 Hypothyroidism, unspecified; Z86.718 Personal history of other venous thrombosis and embolism; Z86.711 Personal history of pulmonary embolism; Z88.5 Allergy status to narcotic agent; Z79.890 Hormone replacement therapy; Z79.01 Long term (current) use of anticoagulants; Z79.899 Other long term (current) drug therapy
CPT/HCPCS: 96365; J2916

== ENCOUNTER 2022-07-05 00:31 | Day surgery (SDC) | payer OTHER ==
[2022-07-05 11:00] VITALS: BP 93/57
== END 2022-07-05 12:08 | disposition home or self-care (01) ==
LOC: ATC 00:31
DX: D50.9 Iron deficiency anemia, unspecified (principal); E03.9 Hypothyroidism, unspecified; Z86.718 Personal history of other venous thrombosis and embolism; Z86.711 Personal history of pulmonary embolism; Z88.5 Allergy status to narcotic agent; Z79.890 Hormone replacement therapy; Z79.01 Long term (current) use of anticoagulants; Z79.899 Other long term (current) drug therapy
CPT/HCPCS: 96365; J2916

== ENCOUNTER 2023-07-01 10:21 | Emergency (ER) | payer OTHER ==
[~2023-07-01] VITALS: Ht 160 cm; Wt 67.1 kg
[~2023-07-01 10:21] MED LIST changes: +ASCO500 PO; +DOCU100 PO; +ENTRESTO 24 MG1 EACH; +FERROUS GLUCON324 M2 PO; +FURO20
[2023-07-01] MEDS ORDERED: NS 1,000 ML IV SCH ×3 (10:40→11:55)
[2023-07-01 11:12] LABS: BASOPHILS ABSOLUTE AUTO 0.07 K/mm3 (0.00-0.23); BASOPHILS PERCENT AUTO 1 % (0-2); EOSINOPHILS ABSOLUTE AUTO 0.31 K/mm3 (0.00-0.68); EOSINOPHILS PERCENT AUTO 4 % (0-6); IMMATURE GRAN ABSOLUTE AUTO 0.02 K/mm3 (0.00-0.10); IMMATURE GRAN PERCENT AUTO 0 % (0-1); LYMPHOCYTES ABSOLUTE AUTO 2.21 K/mm3 (0.84-5.20); LYMPHOCYTES PERCENT AUTO 27 % (21-46); MONOCYTES ABSOLUTE AUTO 0.49 K/mm3 (0.16-1.47); MONOCYTES PERCENT AUTO 6 % (4-13); Mean Corpuscular HGB Conc 32.9 g/dL (31.5-36.5); Mean Corpuscular Volume 103 fL (80-100); Mean Platelet Volume 10.3 fL (9.1-12.4); NEUTROPHILS ABSOLUTE AUTO 5.02 K/mm3 (1.96-9.15); NEUTROPHILS PERCENT AUTO 62 % (41-73); Platelet Count 182 K/mm3 (150-400); RDW Coefficient Variation 19.6 % (11.7-14.2); RDW Standard Deviation 69.9 fL (35.1-46.3); Red Blood Cell Count 1.56 M/mm3 (3.80-5.20); White Blood Cell Count 8.12 K/mm3 (4.00-11.30)
[2023-07-01 11:16] LABS: International Normalized Ratio 1.73; Prothrombin Time Results 17.8 Sec (9.7-11.5)
[2023-07-01 11:19] LABS: Hematocrit 16.1 % (33.0-51.0); Hemoglobin 5.3 g/dL (11.5-16.0)
[2023-07-01] MEDS ORDERED: Pantoprazole Sodium 40 MG Injection IV ONE (11:20)
[2023-07-01 11:23] LABS: Albumin, Blood 3.1 g/dL (3.4-5.0); Albumin/Globulin Ratio 0.9 (0.8-1.8); Bilirubin, Total 1.3 mg/dL (0.1-1.0); Calcium, Blood 10.2 mg/dL (8.5-10.1); Creatinine, Blood 3.05 mg/dL (0.40-1.00); Globulin, Blood 3.5 g/dL (2.2-4.0); Potassium, Blood 4.4 mmol/L (3.5-5.5); Total Protein, Blood 6.6 g/dL (6.4-8.2)
[2023-07-01] MEDS ORDERED: Pantoprazole Sodium 40 MG in NS 50 ML IV SCH (11:35)
[2023-07-01] MEDS ORDERED: Ondansetron HCl 2 MG / ML 2ML Vial IV ONE (11:35)
[2023-07-01] MEDS ORDERED: FentaNYL Citrate 50 MCG/ML 2 ML Injection IV ONE (11:35)
[2023-07-01] MEDS ORDERED: CefTRIAXone Sodium 1,000 MG in NS 100 ML IV ONE (14:10)
[2023-07-01] MEDS ORDERED: Lactated Ringer's 1,000 ML IV ONE (15:00)
[2023-07-01 15:05] VITALS: BP 92/61
== END 2023-07-01 15:35 | disposition short-term general hospital (02) ==
LOC: ER 10:21
PROVIDERS: Student in an Organized Health Care Education/Training Program
DX: R57.8 Other shock (principal); N17.9 Acute kidney failure, unspecified; E87.20 Acidosis, unspecified; E03.9 Hypothyroidism, unspecified
CPT/HCPCS: 36430; 36556; 71045; 80053; 83605; 85025; 85610; 85730; 86850; 86900; 86901; 86923; 93005; 93010; 96361-59; 96365-59; 96366-59; 96368; 96375-59; 96376-59; 99285-25; C1751; C9113; J0696; J2405; J3010; J7030; J7060; J7120; P9016

== ENCOUNTER 2024-04-18 07:45 | Inpatient (IN) | payer OTHER ==
[~2024-04-18] VITALS: Ht 160 cm; Wt 86.7 kg
[2024-04-18] VITALS (12 sets, daily range): BP systolic 93–130; BP diastolic 65–99
[~2024-04-18 07:45] MED LIST changes: +ENTRESTO 24 MG1 EACH PO; +PANTOPRAZOLE SO40 M2 PO; +SUCR1 PO
[2024-04-18] MEDS ORDERED: NS 1,000 ML IV SCH ×2 (08:55→10:10)
[2024-04-18 09:08] LABS: BASOPHILS ABSOLUTE AUTO 0.01 K/mm3 (0.00-0.23); BASOPHILS PERCENT AUTO 0 % (0-2); EOSINOPHILS PERCENT AUTO 0 % (0-6); Hematocrit 28.8 % (33.0-51.0); Hemoglobin 9.4 g/dL (11.5-16.0); IMMATURE GRAN ABSOLUTE AUTO 0.02 K/mm3 (0.00-0.10); IMMATURE GRAN PERCENT AUTO 1 % (0-1); LYMPHOCYTES ABSOLUTE AUTO 0.54 K/mm3 (0.84-5.20); LYMPHOCYTES PERCENT AUTO 12 % (21-46); MONOCYTES ABSOLUTE AUTO 0.37 K/mm3 (0.16-1.47); MONOCYTES PERCENT AUTO 9 % (4-13); Mean Corpuscular HGB 36.3 pg (26.0-34.0); Mean Corpuscular HGB Conc 32.6 g/dL (31.5-36.5); Mean Corpuscular Volume 111 fL (80-100); Mean Platelet Volume 10.7 fL (9.1-12.4); NEUTROPHILS ABSOLUTE AUTO 3.43 K/mm3 (1.96-9.15); NEUTROPHILS PERCENT AUTO 78 % (41-73); Platelet Count 73 K/mm3 (150-400); RDW Coefficient Variation 15.6 % (11.7-14.2); RDW Standard Deviation 63.6 fL (35.1-46.3); Red Blood Cell Count 2.59 M/mm3 (3.80-5.20); White Blood Cell Count 4.37 K/mm3 (4.00-11.30)
[2024-04-18] MEDS ORDERED: Azithromycin 500 MG in NS 250 ML IV ONE (09:20)
[2024-04-18] MEDS ORDERED: MethylPREDNISolone Sod Succ 125 MG Vial IV ONE ×2 (09:20→11:00)
[2024-04-18] MEDS ORDERED: CefTRIAXone Sodium 1,000 MG in NS 100 ML IV ONE (09:20)
[2024-04-18 09:31] LABS: Albumin/Globulin Ratio 0.8 (0.8-1.8); Bilirubin, Total 5.3 mg/dL (0.1-1.0); Bun/Creatinine Ratio 14.6 (12.0-20.0); Calcium, Blood 8.9 mg/dL (8.5-10.1); Creatinine, Blood 2.26 mg/dL (0.40-1.00); Globulin, Blood 4.8 g/dL (2.2-4.0); Potassium, Blood 5.5 mmol/L (3.5-5.5); Total Protein, Blood 8.8 g/dL (6.4-8.2)
[2024-04-18] MEDS ORDERED: Sodium Bicarb 8.4% Inj 150 MEQ in Dextrose 5% 1,000 ML IV SCH (10:00)
[2024-04-18 10:29] LABS: Base Excess Venous -22.7 mmol/L; Bicarbonate Venous 8.7 mmol/L (24.0-30.0); PCO2 Venous 29.5 mmHg (38-42); pH Blood Venous 7.04 (7.34-7.37)
[2024-04-18] MEDS ORDERED: Sodium Bicarb 8.4% 1 MEQ/ML 50 ML Vial ONE (10:31)
[2024-04-18 10:32] LABS: CORONAVIRUS COVID-19 AG Negative (NEGATIVE); INFLUENZA B AG Negative (NEGATIVE)
[2024-04-18 10:52] LABS: Calcium, Ionized (POC) 1.04 mmol/L (1.10-1.46); Chloride (POC) 106 mmol/L (98-108); Creatinine (POC) 2.7 mg/dL (0.6-1.0); Glucose (ISTAT POC) 162 mg/dL (70-99); Hemoglobin (POC) 9.5 g/dL (12.0-16.0); Potassium (POC) 5.7 mmol/L (3.5-5.5); Sodium (POC) 133 mmol/L (135-148); Total CO2 (POC) 11 mmol/L (21-32)
[2024-04-18] MEDS ORDERED: Furosemide 10 MG/ML 4ML Vial ONE (11:10)
[2024-04-18 11:15] LABS: PCO2 Arterial 46.4 mmHg (35-45); PO2 Arterial 21.3 mmHg (80-100); pH Blood Arterial 6.95 (7.35-7.45)
[2024-04-18 11:18] LABS: International Normalized Ratio 1.8; Prothrombin Time Results 18.4 Sec (9.7-11.5)
[2024-04-18] MEDS ORDERED: Ipratropium/Albuterol SulF 2.5-0.5MG/3 ML Amp INH PRN (12:00)
[2024-04-18] MEDS ORDERED: FLU VACC TS2024-25(6MOS UP)/PF 45 MCG/0.5 ML SYRINGE IM SCH (12:00)
[2024-04-18] MEDS ORDERED: Piperacillin/Tazobactam Sod 3.375 GM in NS 100 ML IV ONE (12:05)
[2024-04-18] MEDS ORDERED: Bumetanide 0.25 MG/ML 10ML Vial IV ONE (12:10)
[2024-04-18] MEDS ORDERED: Vancomycin HCL 1,500 MG in NS 250 ML IV ONE (12:10)
--- NOTE | 2024-04-18 12:22 | NUR ---
"Spiritual Care | ED to ICU Pt. is in ED4. Spouse is in consult room when this toll collector supervisor is brought in. Spouse is alone during the first visit. Facilitated a life review, and spouse requested prayer. Prayed with spouse and then left to get an update of the Pt. Nurse Merchant Mariner requested this toll collector supervisor to take spouse and son (who had now arrived) to the ICU Waiting lounge. Facilitated more life review and then updated ICU staff that the Spouse and Son were in ICU waiting room. Spouse verbalized gratitude for the spiritual care support."
[2024-04-18] MEDS ORDERED: NS 500 ML IV ONE (12:31)
[2024-04-18 12:54] LABS: PCO2 Arterial 42.9 mmHg (35-45); PO2 Arterial 73.4 mmHg (80-100); pH Blood Arterial 6.93 (7.35-7.45)
[2024-04-18] MEDS ORDERED: Oseltamvir Phosphate 30 MG Cap PO SCH (13:00)
[2024-04-18] MEDS ORDERED: Oseltamvir Phosphate 30 MG Cap PT SCH (13:00)
--- NOTE | 2024-04-18 13:27 | NUR ---
PT ARRIVES TO ICU AROUND 1200 WITH ER TEAM, RT MARCOS, ON VENTILATOR, BP LOW, LEVO @ 5MCG, BLOOD IN ETTUBING, ART LINE PLACED, FAMILY LET IN TO SEE PT. HOLD OFF ON THE OGT PLACEMENT, MOUTH IS BLOODY, DIFFICULT TO PLACE IN ED. SPOKE WITH FAMILY, SPOKE WITH MAXIE FOR POSSIBLE ECMO TRANSFER. NOW PLACING LINE IN LEFT NECK.
[2024-04-18 14:03] LABS: PCO2 Arterial 39.7 mmHg (35-45); PO2 Arterial 87.6 mmHg (80-100)
--- NOTE | 2024-04-18 14:03 | NUR ---
FINISHED WITH LINE, NEURO CHECK PERFORMED. PT WITH NO PURPOSEFUL MOVEMENT, NO SEDATION INFUSING, PUPILS DILATED, RIGHT SLUGGISH, LEFT NON RESPONSIVE. NO WITHDRAWAL TO PAINFUL STIMULI. CONTINUES TO BE MOTTLED IN ALL EXTREMETIES, EARS AND NOSE.
--- NOTE | 2024-04-18 14:17 | NUR ---
PT APNEIC WITHOUT VENTILATOR, NO GAG OR COUGH.
[2024-04-18] MEDS ORDERED: Atropine Sulfate 0.1 MG/ML 10ML SYR XX ONE (14:36)
[2024-04-18] MEDS ORDERED: EPINEPhrine HCl 0.1 MG/ML 10ML SYR XX ONE (14:36)
[2024-04-18] MEDS ORDERED: Sodium Bicarb 8.4% 50 mEq Syringe IV ONE (14:36)
--- NOTE | 2024-04-18 14:47 | NUR ---
PT TO CT SCAN AND BACK. SETTLED AND FAMILY BROUGHT IN TO THE ROOM. MOM AND DAD WITH HER AT BEDSIDE, MAK DELEON RN AND FIELD SALES SPECIALIST TASHA SPEAKING WITH .
[2024-04-18] MEDS ORDERED: Rocuronium Bromide 10 MG/ML 5ML Injection IV ONE (15:22)
[2024-04-18] MEDS ORDERED: Etomidate 2MG / ML 10ML Vial XX ONE (15:22)
[2024-04-18 16:02] LABS: Hematocrit 28.1 % (33.0-51.0); Mean Corpuscular Volume 112 fL (80-100); Mean Platelet Volume 10.9 fL (9.1-12.4); NRBC ABSOLUTE 0.09 K/mm3 (0.00-0.02); NRBC Auto 1.4 /100 WBC (0.0-0.2); Platelet Count 77 K/mm3 (150-400); RDW Coefficient Variation 15.9 % (11.7-14.2); RDW Standard Deviation 65.8 fL (35.1-46.3); White Blood Cell Count 6.63 K/mm3 (4.00-11.30)
--- NOTE | 2024-04-18 16:17 | NUR ---
Spiritual Care Visit. Pt. is intubated and is completely not responsive when this liner replacer came to bedside with the Pts. spouse. So after arriving the spouse requested prayer. Nurse Morelia joined as we prayed for the Pt., spouse and family. Afterward a life review is facilitated. Dr. Mac came and did an ultrasound of the Pts. heart and some reflex testing. The Pt. did not respond to any of the pain stimuli. Dr. Mac facilitated some of the options availabel to the spouse. It was agreed in the moment that they would maintain care until the morning. Afterward this liner replacer walked the spouse back to the waiting room where he released himself from my care for now. Will remain availabel to the Pt. and family.
[2024-04-18 16:30] LABS: Albumin, Blood 3.3 g/dL (3.4-5.0); Albumin/Globulin Ratio 0.9 (0.8-1.8); Bilirubin, Total 4.5 mg/dL (0.1-1.0); Bun/Creatinine Ratio 15.2 (12.0-20.0); Calcium, Blood 8.1 mg/dL (8.5-10.1); Creatinine, Blood 2.5 mg/dL (0.40-1.00); Globulin, Blood 3.8 g/dL (2.2-4.0); Potassium, Blood 5.6 mmol/L (3.5-5.5); Total Protein, Blood 7.1 g/dL (6.4-8.2)
[2024-04-18 16:32] LABS: BAND PERCENT MAN 10 % (0-8); BASOPHILS PERCENT MAN 0 % (0-2); EOSINOPHILS PERCENT MAN 0 % (0-6); LYMPHOCYTES ABSOLUTE MAN 0.66 K/mm3 (0.84-5.20); LYMPHOCYTES PERCENT MAN 10 % (21-46); MONOCYTES ABSOLUTE MAN 0.06 K/mm3 (0.16-1.47); MONOCYTES PERCENT MAN 1 % (4-13); SEG NEUTROPHILS PERCENT MAN 79 % (41-73); TOTAL CELLS COUNTED 100
[2024-04-18 17:49] LABS: PCO2 Arterial 37.3 mmHg (35-45); pH Blood Arterial 7.16 (7.35-7.45)
[2024-04-18] MEDS ORDERED: MethylPREDNISolone Sod Succ 125 MG Vial IV SCH (18:00)
[2024-04-18] MEDS ORDERED: Piperacillin/Tazobactam Sod 3.375 GM in NS 100 ML IV SCH (18:00)
--- NOTE | 2024-04-18 18:31 | NUR ---
MIKE REMAINS ON THE VENTILATOR 28/280/22/100. PUPILS REMAIN DILATED, RIGHT SLUGGISH, LEFT UNRESPONSIVE. NO COUGH, NO GAG, NO RESPONSE TO NOXIOUS STIMULUS ARMS/LEGS FLACCID. NOREPINEPHRINE @ 15MCG, RIGHT AX ART LINE, LEFT NECK CENTRAL LINE, HERRON WITH <100 UO. SKIN WARMER, PULSES PRESENT. HAS BEEN IN AND OUT. FAMILY IN WAITING ROOM. PLAN TO WAIT UNTIL TOMORROW TO MAKE ANY CHANGES. WILL NOT ESCALATE PAST THE NOREPINEPHRINE TONIGHT. NO ADDITIONAL PRESSORS.
--- NOTE | 2024-04-18 21:33 | NUR ---
ASSUMPTION OF CARE: ASSUMED CARE OF PT AT 1900. PT INTUBATED/ NO SEDATION. PT HAS NO RESPONSE TO PAINFUL OR VERBAL STIMULI. NO CORNEAL REFLEX. NO COUGH/GAG OR SWALLOW. RIGHT PUPIL REACTIVE TO LIGHT. LEFT PUPIL FIXED AND DILATED. DECORTICATE POSTURING NOTED IN UPPER EXTREMETIES. NO RESPONSE TO TRAPEZIUS SQUEEZE. VENT SETTINGS AC/VC 28/280/22/100%. LUNGS CLEAR. MINIMAL SECRETIONS NOTED FROM ET TUBE. ETT 7.5, 25 AT THE TEETH. MANAGER OF TAX IN PLACE, SR WITH HR 80'S. LEVOPHED AT 12 MCG/MIN, TITRATED TO MAINTAIN MAP >60. SEE FLOWSHEET. A-LINE TO RIGHT AXILLARY. CENTRAL LINE TO LEFT IJ. TEMP HERRON PATENT AND DRAINING TO GRAVITY. PT AT THE BEDSIDE, UPDATED TO PLAN OF CARE. BED LOW AND LOCKED.
[2024-04-18] MEDS ORDERED: propofoL 100 ML IV SCH (22:30)
[2024-04-18] MEDS ORDERED: FentaNYL Citrate 50 MCG/ML 2 ML Injection IV PRN (22:35)
--- NOTE | 2024-04-18 22:56 | NUR ---
UPDATE: PT RESPONDING TO PAINFUL STIMULI, GRIMACING. REACHING WITH LEFT HAND FOR THE ET TUBE. MOVING LEGS AROUND IN BED AND BITING DOWN ON THE ET TUBE. CALL PLACED TO DR. SHELLEY, UPDATED. ORDER GIVEN TO START PROPOFOL, INITIATED AT 10 MCG/KG/MIN.
[2024-04-19] VITALS (13 sets, daily range): BP systolic 68–127; BP diastolic 41–66
[2024-04-19 03:55] LABS: Hematocrit 24.8 % (33.0-51.0); Hemoglobin 8.5 g/dL (11.5-16.0); Mean Corpuscular HGB 36.6 pg (26.0-34.0); Mean Corpuscular HGB Conc 34.3 g/dL (31.5-36.5); Mean Platelet Volume 10.4 fL (9.1-12.4); NRBC ABSOLUTE 0.03 K/mm3 (0.00-0.02); NRBC Auto 0.3 /100 WBC (0.0-0.2); Platelet Count 86 K/mm3 (150-400); RDW Coefficient Variation 15.3 % (11.7-14.2); RDW Standard Deviation 59.7 fL (35.1-46.3); Red Blood Cell Count 2.32 M/mm3 (3.80-5.20); White Blood Cell Count 11.19 K/mm3 (4.00-11.30)
[2024-04-19 03:56] LABS: Mean Corpuscular Volume 107 fL (80-100)
[2024-04-19 04:16] LABS: Alanine Aminotransfer (ALT/SGP 84 U/L (12-78); Albumin, Blood 3.4 g/dL (3.4-5.0); Albumin/Globulin Ratio 0.9 (0.8-1.8); Alk Phos 117 U/L (50-136); Anion Gap 16 mmol/L (3-11); Aspartate Aminotrans (AST/SGOT 529 U/L (12-37); Bilirubin, Total 4.9 mg/dL (0.1-1.0); Blood Urea Nitrogen 47 mg/dL (8-24); CO2, Blood 19 mmol/L (21-32); Calcium, Blood 7.8 mg/dL (8.5-10.1); Chloride, Blood 104 mmol/L (98-108); Creatinine, Blood 2.77 mg/dL (0.40-1.00); Globulin, Blood 3.8 g/dL (2.2-4.0); Glomerular Filtration Rate 20 (60-); Glucose, Blood 231 mg/dL (70-99); Magnesium, Blood 1.8 mg/dL (1.6-2.4); Sodium, Blood 134 mmol/L (136-145); Total Protein, Blood 7.2 g/dL (6.4-8.2); Vancomycin, Random 25.8 ug/mL
[2024-04-19 04:28] LABS: BAND PERCENT MAN 33 % (0-8); BASOPHILS PERCENT MAN 0 % (0-2); EOSINOPHILS PERCENT MAN 0 % (0-6); LYMPHOCYTES ABSOLUTE MAN 0.22 K/mm3 (0.84-5.20); LYMPHOCYTES PERCENT MAN 2 % (21-46); METAMYELOCYTE ABSOLUTE MAN 0.11 K/mm3 (0.00-0.00); METAMYELOCYTE PERCENT MAN 1 % (0-0); MONOCYTES ABSOLUTE MAN 0.33 K/mm3 (0.16-1.47); MONOCYTES PERCENT MAN 3 % (4-13); NEUTROPHILS ABSOLUTE MAN 10.51 K/mm3 (1.96-9.15); SEG NEUTROPHILS PERCENT MAN 61 % (41-73); TOTAL CELLS COUNTED 100
--- NOTE | 2024-04-19 05:54 | NUR ---
SHIFT SUMMARY: PT REMAINS INTUBATED AND SEDATED ON 20 MCG/KG/MIN OF PROPOFOL. PT ATTEMPTS TO TRACK. HAS PUPILARY RESPONSE BILATERALLY ALTHOUGH MORE SLUGGISH IN LEFT EYE. DOES NOT FOLLOW COMMANDS. HAS PAIN RESPONSE. LEVOPHED AT 14 MCG/MIN FOR MAP >60. SEE FLOWSHEET FOR TITRATIONS. CENTRAL LINE TO LIJ. A-LINE TO RIGHT AXILLARY. VENT SETTINGS AC/VC 28/280/20/100%. SPO2 LOW 90'S. RR 28-32. ETCO2 23-27. LUNGS CLEAR. 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 HERRON PATENT AND DRAINING TO GRAVITY. TEMP 98.6-99.1. BED LOW AND LOCKED.
[2024-04-19] MEDS ORDERED: Pantoprazole Sodium 40 MG Injection IV SCH (06:00)
--- NOTE | 2024-04-19 07:37 | NUR ---
PT ON 15 MCG/HR PROPOFOL, OPENS EYES TO STIMULI, OVER BREATHING VENTILATOR, FROWNING, MOVING ARMS UP TO CHEST, SQUEEZES ON COMMAND. SWALLOW, GAG, COUGH PRESENT.
[2024-04-19] MEDS ORDERED: NS 250 ML IV PRN (08:25)
[2024-04-19] MEDS ORDERED: Vasopressin 20 UNITS in NS 100 ML IV SCH (08:55)
[2024-04-19] MEDS ORDERED: Heparin Sodium 5000 Units/ML 1ML MDV SC SCH ×2 (09:00→16:14)
--- NOTE | 2024-04-19 10:31 | NUR ---
Spiritual care Family support Pt. has improved overnight. Met with family in the ICU waiting room. Pastoral encouragement is given. Spouse and family verbalized gratitud eof r the spiritual care support. Will remain available to the Pt. and family.
[2024-04-19 10:49] LABS: PCO2 Arterial 33.4 mmHg (35-45); PO2 Arterial 58.9 mmHg (80-100); pH Blood Arterial 7.34 (7.35-7.45)
[2024-04-19] MEDS ORDERED: Azithromycin 500 MG in NS 250 ML IV SCH (12:00)
[2024-04-19 12:50] LABS: PCO2 Arterial 30.1 mmHg (35-45); PO2 Arterial 50.7 mmHg (80-100); pH Blood Arterial 7.36 (7.35-7.45)
[2024-04-19] MEDS ORDERED: Calcium Chloride 10% 1,000 MG in NS 50 ML IV ONE ×2 (12:55→18:20)
--- NOTE | 2024-04-19 13:23 | NUR ---
AROUND 1240 PT HAD JUST HAD CHEST XRAY FOR PLACEMENT OF DOBHOFF FEEDING TUBE. PT BEGAN TO DROP SATURATION, BLOOD PRESSURE BECAME MORE LABILE. CALL TO DR. SHELLEY TO COME IN TO SEE PT. EXTREMITIES BECOMING MORE COOL, COLOR WANING, ABG OBTAINED, CALCIUM CL GIVEN, EPINEPHRINE ADDED, PROPOFOL DECREASED. SEE FLOWSHEET.
[2024-04-19] MEDS ORDERED: Cisatracurium Besylate 100 MG in NS 50 ML IV SCH (13:50)
[2024-04-19] MEDS ORDERED: FentaNYL Citrate 50 MCG/ML 2 ML Injection ONE (14:04)
--- NOTE | 2024-04-19 14:07 | NUR ---
Spiritual Care Visit. Pt. continues on the ventilator, and michelle gonzalez is infomred that the Pts. stats are declining. Spouse is at bedside and requested this solar photovoltaic crew lead to pray once again for the Pt. and family. Prayed with Spouse for the Pt. Spouse verbalized gratitude for the spiritual care visit. This solar photovoltaic crew lead will remain available for the Pt. and family.
[2024-04-19] MEDS ORDERED: FentaNYL Citrate 50 MCG/ML 2 ML Injection IV ONE (14:15)
[2024-04-19] MEDS ORDERED: Phenylephrine HCl in 0.9% NaCl 250 ML IV SCH (14:15)
[2024-04-19] MEDS ORDERED: Magnesium Hydroxide Conc 10 ML UDC PT PRN (15:15)
[2024-04-19] MEDS ORDERED: Bisacodyl 10 MG Supp PR PRN (15:15)
[2024-04-19] MEDS ORDERED: Docusate Sodium Liquid 100 MG UDC PT PRN (15:15)
[2024-04-19 15:18] LABS: PCO2 Arterial 39.1 mmHg (35-45); PO2 Arterial 224 mmHg (80-100); pH Blood Arterial 7.24 (7.35-7.45)
[2024-04-19] MEDS ORDERED: Heparin Sodium,Porcine 5,000 UNIT/0.5 ML SDV SC SCH (16:00)
[2024-04-19 17:23] LABS: COMPLEMENT COMPONENT 3 66 mg/dL (90-180); COMPLEMENT COMPONENT 4 7 mg/dL (10-40)
[2024-04-19 17:36] LABS: PO2 Arterial 168 mmHg (80-100)
[2024-04-19 17:42] LABS: pH Blood Arterial 7.26 (7.35-7.45)
[2024-04-19 18:00] LABS: Hematocrit 26.5 % (33.0-51.0); Hemoglobin 8.9 g/dL (11.5-16.0); Mean Corpuscular HGB 35.9 pg (26.0-34.0); Mean Corpuscular HGB Conc 33.6 g/dL (31.5-36.5); Mean Corpuscular Volume 107 fL (80-100); Mean Platelet Volume 10.5 fL (9.1-12.4); NRBC ABSOLUTE 0.05 K/mm3 (0.00-0.02); NRBC Auto 0.3 /100 WBC (0.0-0.2); Platelet Count 99 K/mm3 (150-400); RDW Coefficient Variation 15.5 % (11.7-14.2); RDW Standard Deviation 60.5 fL (35.1-46.3); Red Blood Cell Count 2.48 M/mm3 (3.80-5.20); White Blood Cell Count 14.86 K/mm3 (4.00-11.30)
[2024-04-19] MEDS ORDERED: Rocuronium Bromide 10 MG/ML 5ML Injection IV ONE (18:22)
[2024-04-19 18:26] LABS: Bun/Creatinine Ratio 18.8 (12.0-20.0); Calcium, Blood 8.2 mg/dL (8.5-10.1); Creatinine, Blood 2.88 mg/dL (0.40-1.00); Potassium, Blood 5.3 mmol/L (3.5-5.5)
--- NOTE | 2024-04-19 19:43 | NUR ---
SINCE THE EPISODE AROUND 1300, PT WAS STARTED ON EPINEPHRINE AND STOPPED HEART RATE CLIMBED TO 180S. NEOSYNEPHRINE WAS ADDED, PT WAS TURNED PRONE WITH GOOD RESPONSE IN VITAL SIGNS. PT HAD BEEN STARTED ON NIMBEX, WITH BIS MONITORING, PROPOFOL FOR SEDATION, NOREPINEPHRINE UP TO 25 MCG, VASOPRESSIN AT 0.04, PHENYLEPHRINE TO 40. PT HAS TOLERATED PRONE POSITION. POSITION CHANGES SMALL. REPORT AT BEDSIDE TO NELLY ABEL.
--- NOTE | 2024-04-19 21:03 | NUR ---
ASSUMPTION OF CARE: ASSUMED CARE OF PT AT 1900. PT INTUBATED, SEDATED, PRONED AND PARALYZED. VENT SETTINGS AC/VC 30/280/22/60%. FIO2 INCREASED TO [address] SHELLEY. PROPOFOL AT 20 MCG/KG/MIN WITH BIS READING 40-48. TOF SCORE 0/4 AT START OF SHIFT, NIMBEX DECREASED FROM 2 MCG/KG/MIN TO 1 MCG/KG/MIN. PT TOLERATING VENT WELL. SPO2 READING 88-93%. LUNGS CLEAR. ETCO2 27. RR 30. MANAGER DELIVERY IN PLACE, AFIB TO SB AT 191. AMIO DRIP STOPPED PER DR. SHELLEY. HR 50'S. LEVOPHED AT 24 MCG/MIN, VASO AT 0.04 UNITS/MIN AND PHENYLEPHRINE AT 40 MCG/MIN, INFUSING TO MAINTAIN MAP >60. SEE FLOWSHEET FOR TITRATIONS. A-LINE TO RIGHT AXILLARY INTACT. CENTRAL LINE TO LIJ INTACT AND INFUSING. HERRON PATENT AND DRAINING TO GRAVITY YELLOW URINE. AFEBRILE. NO BM YET. DOBHOFF IN PLACE INFUSING TUBE FEED AT GOAL. BED LOCKED.
[2024-04-19] MEDS ORDERED: Hydrocortisone Sod Succinate 100 MG Vial IV SCH (21:30)
[2024-04-20] VITALS (8 sets, daily range): BP systolic 93–118; BP diastolic 56–82
[2024-04-20] MEDS ORDERED: Hydrocortisone Sod Succinate 100 MG Vial IV SCH ×2 (01:00→03:00)
[2024-04-20 02:32] LABS: PCO2 Arterial 37.5 mmHg (35-45)
[2024-04-20 02:33] LABS: PO2 Arterial 347 mmHg (80-100)
[2024-04-20 02:34] LABS: pH Blood Arterial 7.24 (7.35-7.45)
[2024-04-20 02:42] LABS: PCO2 Arterial 35.5 mmHg (35-45); PO2 Arterial 396 mmHg (80-100); pH Blood Arterial 7.26 (7.35-7.45)
[2024-04-20 03:51] LABS: BASOPHILS PERCENT AUTO 0 % (0-2); EOSINOPHILS PERCENT AUTO 0 % (0-6); Hematocrit 24.5 % (33.0-51.0); Hemoglobin 8.5 g/dL (11.5-16.0); IMMATURE GRAN ABSOLUTE AUTO 0.28 K/mm3 (0.00-0.10); IMMATURE GRAN PERCENT AUTO 3 % (0-1); LYMPHOCYTES ABSOLUTE AUTO 0.64 K/mm3 (0.84-5.20); LYMPHOCYTES PERCENT AUTO 7 % (21-46); MONOCYTES ABSOLUTE AUTO 0.54 K/mm3 (0.16-1.47); MONOCYTES PERCENT AUTO 6 % (4-13); Mean Corpuscular HGB 36.5 pg (26.0-34.0); Mean Corpuscular HGB Conc 34.7 g/dL (31.5-36.5); Mean Corpuscular Volume 105 fL (80-100); Mean Platelet Volume 10.3 fL (9.1-12.4); NEUTROPHILS ABSOLUTE AUTO 7.93 K/mm3 (1.96-9.15); NEUTROPHILS PERCENT AUTO 84 % (41-73); NRBC ABSOLUTE 0.04 K/mm3 (0.00-0.02); NRBC Auto 0.4 /100 WBC (0.0-0.2); Platelet Count 82 K/mm3 (150-400); RDW Coefficient Variation 15.4 % (11.7-14.2); RDW Standard Deviation 58.9 fL (35.1-46.3); Red Blood Cell Count 2.33 M/mm3 (3.80-5.20); White Blood Cell Count 9.39 K/mm3 (4.00-11.30)
[2024-04-20 04:23] LABS: Alanine Aminotransfer (ALT/SGP 147 U/L (12-78); Albumin, Blood 3.4 g/dL (3.4-5.0); Albumin/Globulin Ratio 0.9 (0.8-1.8); Alk Phos 95 U/L (50-136); Anion Gap 18 mmol/L (3-11); Aspartate Aminotrans (AST/SGOT 825 U/L (12-37); Bilirubin, Direct 3.7 mg/dL (0.0-0.3); Bilirubin, Indirect 1.9 mg/dL (0.1-0.7); Bilirubin, Total 5.6 mg/dL (0.1-1.0); Blood Urea Nitrogen 60 mg/dL (8-24); Bun/Creatinine Ratio 22.1 (12.0-20.0); CO2, Blood 16 mmol/L (21-32); Calcium, Blood 8.1 mg/dL (8.5-10.1); Chloride, Blood 98 mmol/L (98-108); Creatinine, Blood 2.71 mg/dL (0.40-1.00); Globulin, Blood 3.9 g/dL (2.2-4.0); Glomerular Filtration Rate 21 (60-); Glucose, Blood 382 mg/dL (70-99); Magnesium, Blood 2.1 mg/dL (1.6-2.4); Phosphorus, Blood 6.7 mg/dL (2.5-4.9); Potassium, Blood 5.2 mmol/L (3.5-5.5); Sodium, Blood 127 mmol/L (136-145); Total Protein, Blood 7.3 g/dL (6.4-8.2); Vancomycin, Random 17.9 ug/mL
--- NOTE | 2024-04-20 06:19 | NUR ---
SHIFT SUMMARY: PT CONTINUES TO BE INTUBATED, PRONED, SEDATED AND PARALYZED THROUGHOUT THE NIGHT. PROPOFOL AT 10 MCG/KG/MIN. BIS 40. NIMBEX AT 1 MCG/KG/MIN. TOF 0/4. COMPLIANT WITH VENT. VENT SETTINGS AC/VC 30/280/22/60%. PT HAD EPISODE OF DESATURATION, MONITOR WAS READING LOW 50'S-60'S THEN PROCEEDED TO STOP READING. ABG WAS DRAWN AND PO2 >300. RR 30. LUNGS CLEAR. 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 HR 100-120'S. LEVOPHED AT 14 MCG/MIN, PHENYLEPHRINE AT 20 MCG/MIN AND VASO AT 0.04 UNITS/MIN. MAP >60. SEE FLOWSHEET FOR TITRATIONS. A-LINE REMAINS PATENT IN RIGHT AXILLARY. CENTRAL LINE TO LIJ REMAINS PATENT AND INFUSING. PT HAS INCREASED FACIAL EDEMA T/O THE NIGHT. ETT 25 AT THE TEETH. PT HAVING BLOODY SECRETIONS FROM MOUTH AND ETT. TUBE FEED CONTINUES TO INFUSE AT GOAL THROUGH DOBHOFF. HERRON PATENT AND DRAINING TO GRAVITY. RECTAL TUBE PLACED THIS SHIFT, DRAINING TO GRAVITY. AFEBRILE. BED LOCKED.
[2024-04-20] MEDS ORDERED: Vancomycin HCL 1,250 MG in NS 250 ML IV SCH (09:00)
--- NOTE | 2024-04-20 10:20 | NUR ---
PATIENT REPOSITIONED FROM PRONE TO SUPINE. RT ASSISTED MANAGING ET TUBE. PATIENT TOLERATED WELL. MAP REMAINS ABOVE 60. PEEP REDUCED TO 20 BY RT AMANDEEP PER DR SHELLEY. FAMILY AT BEDSIDE THIS AM AND COUSIN ANAYA. CHG BATH COMPLETED.
[2024-04-20 11:01] LABS: Anti-Xa UFH, PHA Monitoring <0.10 IU/mL; International Normalized Ratio 1.94; Prothrombin Time Results 19.8 Sec (9.7-11.5)
[2024-04-20] MEDS ORDERED: Heparin Sodium,Porcine/0.5 NS 500 ML IV SCH (11:20)
[2024-04-20] MEDS ORDERED: Hydrogen Peroxide 1.5 % Solution MT SCH (12:00)
[2024-04-20 12:08] LABS: PCO2 Arterial 35.6 mmHg (35-45); PO2 Arterial 109 mmHg (80-100); pH Blood Arterial 7.28 (7.35-7.45)
--- NOTE | 2024-04-20 14:15 | NUR ---
APPROX 1245 PATIENT CONVERTED TO SINUS RHYTHM. HR 70-80S. SBP DECREASED 70-90S. CHASE SYNEPHRINE STOPPED PRIOR TO CONVERSION. LEVOPHED INCREASED FROM 12MCG/MIN TO 26MCG/MIN TO MAINTAIN MAP ABOVE 60. FIO2 DEMAND INCREASED DURING THIS TIME INCREASED FROM 50 TO 70. PATIENT SPO2 REMAINS ABOVE 95% AT THIS TIME.
--- NOTE | 2024-04-20 16:57 | NUR ---
SHIFT SUMMARY PATIENT INTUBATED, PARALYZED AND SEDATED. TRAIN OF FOUR:0. NO GAG,COUGH OR SWALLOW REFLEX. L PUPIL REACTIVE BUT SLUGGISH, R REACTIVE TO LIGHT. RASS -4. BIS 20-40. EMG MONITOR IN PLACE. PATIENT CURRENTLY IN SR, CONVERTED FROM AFIB APPROX 1245. CHASE-SYNEPHRINE STOPPED. INCREASED LEVOPHED TO ACCOMODATE CHANGE TO KEEP MAP ABOVE 60. SBP 80-90S SINCE CONVERTING, DBP 60S. HR 70-80S. LUNGS CLEAR TO AUSCTULATION, MINIMAL MUCUS. SOME BLEEDING FROM TOUNGE FROM PRIOR LACERATION WITH SUCTION. SPO2 REMAINS ABOVE 95%. 30/300/20/60. ABDOMEN IS SOFT TO PALPATION, HYPOACTIVE BOWEL TONES. RECTAL TUBE IN PLACE, LIQUID YELLOW STOOLS WITH SMALL BLACK FLECKS PRESENT 750ML OUT THIS SHIFT. HERRON CATHETER IN PLACE DRAINING TO GRAVITY. 650 OUT THIS SHIFT. SKIN INTACT SOME SCATTERED ECCYMOSIS AND SCABS PRESENT AND LAC TO PATIENTS TOUNGE. DOBHOFF IN PLACED, TUBE FEED AT GOAL OF 35ML/HR. GENERALIZED DEPENDENT EDEMA VARIABLE WHETHER PATIENT SUPINE OR PRONE, +1. FACIAL, BUE, BLE. PATIENT TOLERATED POSITIONING WELL. PT PLACED SUPINE APPROX 945 AND PRONED AT 1600. FAMILY INTO VISIT TODAY, , AUNT, COUSIN ANAYA AND ANOTHER RELATIVE.
[2024-04-20 18:26] LABS: PCO2 Arterial 35.4 mmHg (35-45); PO2 Arterial 121 mmHg (80-100); pH Blood Arterial 7.26 (7.35-7.45)
--- NOTE | 2024-04-20 18:33 | NUR ---
Spiritual Care Check-in. Family members are inthe ICU waiting area and spouse welcomed my visit. Spouse verbalized that he had also lost his dad earlier in the day. Listen with shock and empathy. Spouse also agreed that the Pts. condition had remained stable throughout the day. Spouse verbalized gratitude for the spiritual life check in.
[2024-04-20] MEDS ORDERED: Dose Adjust by Pharmacy XX STA (18:55)
[2024-04-20] MEDS ORDERED: CALCIUM GLUC IN NACL, ISO-OSM 100 ML IV ONE (19:15)
[2024-04-20] MEDS ORDERED: Cetylpyridinium Chloride 1 EA MISC MT SCH (20:00)
[2024-04-20] MEDS ORDERED: Pantoprazole Sodium 40 MG Injection IV SCH (21:00)
[2024-04-21] MEDS ORDERED: Dose Adjust by Pharmacy XX STA (01:30)
[2024-04-21 03:58] LABS: Hematocrit 24.2 % (33.0-51.0); Hemoglobin 8.3 g/dL (11.5-16.0); Mean Corpuscular HGB 35.8 pg (26.0-34.0); Mean Corpuscular HGB Conc 34.3 g/dL (31.5-36.5); Mean Corpuscular Volume 104 fL (80-100); Mean Platelet Volume 11.1 fL (9.1-12.4); NRBC ABSOLUTE 0.03 K/mm3 (0.00-0.02); NRBC Auto 0.3 /100 WBC (0.0-0.2); Platelet Count 81 K/mm3 (150-400); RDW Coefficient Variation 15.4 % (11.7-14.2); RDW Standard Deviation 58.3 fL (35.1-46.3); Red Blood Cell Count 2.32 M/mm3 (3.80-5.20); White Blood Cell Count 10.75 K/mm3 (4.00-11.30)
[2024-04-21 04:43] LABS: Alanine Aminotransfer (ALT/SGP 152 U/L (12-78); Albumin, Blood 3.3 g/dL (3.4-5.0); Albumin/Globulin Ratio 0.8 (0.8-1.8); Alk Phos 112 U/L (50-136); Anion Gap 19 mmol/L (3-11); Aspartate Aminotrans (AST/SGOT 640 U/L (12-37); Bilirubin, Direct 3.4 mg/dL (0.0-0.3); Bilirubin, Indirect 1.8 mg/dL (0.1-0.7); Bilirubin, Total 5.2 mg/dL (0.1-1.0); Blood Urea Nitrogen 66 mg/dL (8-24); Bun/Creatinine Ratio 27.3 (12.0-20.0); CO2, Blood 15 mmol/L (21-32); Chloride, Blood 101 mmol/L (98-108); Creatinine, Blood 2.42 mg/dL (0.40-1.00); Glomerular Filtration Rate 24 (60-); Glucose, Blood 398 mg/dL (70-99); Potassium, Blood 4.2 mmol/L (3.5-5.5); Sodium, Blood 131 mmol/L (136-145); Total Protein, Blood 7.3 g/dL (6.4-8.2); Vancomycin, Random 28.8 ug/mL
--- NOTE | 2024-04-21 04:50 | NUR ---
SPOKE TO DR SHELLEY TO NOTIFY HIM OF PT HAVING INCREASING BLOOD COMING FROM HER MOUTH AND FROM HER NOSTRILS. I TOLD HIM I CALLED [facility] THE PHARMACIST IMMEDIATLY AND STOPPED THE HEPARIN DRIP. I ALSO STOPPED THE TUBE FEEDINGS. I UPDATED HIM ON PT CONDITION THROUGHOUT THE NIGHT. ORDERS GIVEN.
--- NOTE | 2024-04-21 05:17 | NUR ---
PT JUST WENT INTO AFIB, RATE UP TO 120S, BP STABLE AT THIS TIME ON PRESSORS-SEE [facility]
--- NOTE | 2024-04-21 05:34 | NUR ---
NOTIFIED DR DARLING OF LABS. ORDERS GIVEN
[2024-04-21] MEDS ORDERED: Insulin Human Regular 100 UNIT in NS 100 ML IV SCH ×2 (05:35→07:10)
[2024-04-21] MEDS ORDERED: Sodium Bicarb 8.4% 1 MEQ/ML 50 ML Vial IV ONE (05:40)
--- NOTE | 2024-04-21 06:30 | NUR ---
SHIFT SUMMERY PT REMAINS INTUBATED VIA ETT, INTACT AND PATENT TO VENT. OXYGEN SAT HAVE BEEN 100% THROUGHOUT THE NIGHT. PT HAD SOME BLEEDING FROM MOUTH AT THE BEGINNING OF THE SHIFT BUT HAS WORSENED OVERNIGHT THE SHIFT WENT ON AND HER NOSE BEGAN TO BLEED WELL. DR SHELLEY WAS NOTIFIED. THE HEPARIN DRIP WAS DISCONTINUED AND TUBE FEEDINGS ARE ON HOLD. PT HAS A DOBHOFF. SHE HAS BEEN IN THE PRONE POSITION THE ENTIRE SHIFT. LEVOPHED AND VASOPRESSIN TITRATED TO MAINTAIN MAP >65. PT HAS AN ART LINE THAT IS VERY POSITIONAL. PT IS ALSO ON NIMBEX, TRAIN OF 4 HAS BEEN 0-4 AND NIMBEX HAS BEEN TITRATED ACCORDINGLY, HAS PROPOFOL THAT IS INFUSING IN CONJUCTION FOR SEDATION. INSULIN GTT WAS STARTED AT 3U/HR THIS AM FOR LABS SHOWING DKA PER DR DARLING. PT HAS A RECTAL TUBE THAT HAS DRAINED A SMALL AMOUNT OF LIQUID BROWN/YELLOW STOOL. HERRON CATH INTACT PATENT AND DRAINING TO GRAVITY. PT IS EDEMATOUS W/POSITIVE FLUID BALANCE. MINIMAL SECRETIONS WHEN ETT SUCTIONED. PT WAS IN SR ON THE TOY DESIGNER AT THE BEGINNING OF THE SHIFT AND THEN WENT INTO AFIB, WHICH SHE HAS BEEN IN PRIOR THIS ADMISSION. RATE IS CONTROLLED AT THIS TIME WITHOUT INTERVENTION. BIS MONITOR READINGS WERE WIDELY VARIED-TEENS TO 70S. MEDICATIONS TITRATED ACCORDING W/ PATIENT GOALS. FAMILY WAS A BEDSIDE AT THE BEGINNING OF SHIFT AND QUESTIONS WERE ANSWERED. FAMILY VOICED APPRECIATION FOR CARE GIVEN.
[2024-04-21 09:08] VITALS: BP 115/74
[2024-04-21] MEDS ORDERED: LORazepam 2 MG/ML 1ML Injection IV PRN (09:10)
[2024-04-21] MEDS ORDERED: Calcium Chloride 10% 2,000 MG in NS 100 ML IV ONE (09:15)
[2024-04-21 09:25] LABS: PCO2 Arterial 36.6 mmHg (35-45); PO2 Arterial 216 mmHg (80-100); pH Blood Arterial 7.31 (7.35-7.45)
[2024-04-21 10:00] VITALS: BP 121/79
[2024-04-21 11:09] VITALS: BP 103/62
--- NOTE | 2024-04-21 16:24 | NUR ---
"Spiritual Care | Family Check In Most of the Pts. family are in the ICU waiting room. Met with spouse and facilitated an update. Pastoral encouragement is given. Will remain available to the Pt. and family."
--- NOTE | 2024-04-21 18:27 | NUR ---
SHIFT SUMMARY PATIENT REMAINS INTUBATED/SEDATED AND PARALYZED. PUPILS RESPSONSIVE MORE SLUGGISH ON LEFT- NO CHANGE. TRAIN OF FOUR 0/0. PRN ATIVAN ADMINISTERED X 2. NIMBEX AND PROPOFOL UNCHANGED TODAY. BIS 30-45. VENT SETTINGS ADJUSTED 30/280/40/14. LUNGS CLEAR TO AUSCULATION. TOLERATED PEEP AND FIO2 REDUCTION WELL. REMAINED SUPINE APPROX 9HR. PRONATED AT 1645. TOLERATED WELL. ON CONTINUOUS TELE. AFIB HR 90-110S TODAY. SCDS IN PLACE BLE. LEVO CURRENTLY AT 4MCG/MIN TITRATED TO KEEP MAP ABOVE 60. VASOPRESSIN UNCHANGED. INSULIN GTT TITRATED TODAY. SPOKE WITH DR PALMA ORDERS RECIEVED FOR REPEAT LABS. FAMILY AT BEDSIDE TODAY, AND COUSIN ANAYA.
[2024-04-21 19:20] LABS: Bun/Creatinine Ratio 30.3 (12.0-20.0); Creatinine, Blood 2.11 mg/dL (0.40-1.00); Phosphorus, Blood 3.6 mg/dL (2.5-4.9); Potassium, Blood 3.1 mmol/L (3.5-5.5)
--- NOTE | 2024-04-21 19:37 | NUR ---
DR PALMA NOTIFIED OF LABS AND UPDATED ON PT CONDITION. SEE ORDERS
[2024-04-21] MEDS ORDERED: D5W-1/2NS 1,000 ML IV SCH (19:40)
[2024-04-21] MEDS ORDERED: Potassium Chloride 40 MEQ in NS 250 ML IV SCH (20:00)
[2024-04-21] MEDS ORDERED: Banana Flakes/Tos 1 EA Powder Pack PT SCH (21:00)
[2024-04-22 04:06] LABS: BASOPHILS PERCENT AUTO 0 % (0-2); EOSINOPHILS ABSOLUTE AUTO 0.01 K/mm3 (0.00-0.68); EOSINOPHILS PERCENT AUTO 0 % (0-6); Hematocrit 20.5 % (33.0-51.0); Hemoglobin 7.1 g/dL (11.5-16.0); IMMATURE GRAN ABSOLUTE AUTO 0.06 K/mm3 (0.00-0.10); IMMATURE GRAN PERCENT AUTO 1 % (0-1); LYMPHOCYTES ABSOLUTE AUTO 0.85 K/mm3 (0.84-5.20); LYMPHOCYTES PERCENT AUTO 11 % (21-46); MONOCYTES ABSOLUTE AUTO 0.57 K/mm3 (0.16-1.47); MONOCYTES PERCENT AUTO 7 % (4-13); Mean Corpuscular HGB 35.9 pg (26.0-34.0); Mean Corpuscular HGB Conc 34.6 g/dL (31.5-36.5); Mean Corpuscular Volume 104 fL (80-100); Mean Platelet Volume 11.2 fL (9.1-12.4); NEUTROPHILS ABSOLUTE AUTO 6.29 K/mm3 (1.96-9.15); NEUTROPHILS PERCENT AUTO 81 % (41-73); NRBC ABSOLUTE 0.02 K/mm3 (0.00-0.02); NRBC Auto 0.3 /100 WBC (0.0-0.2); RDW Coefficient Variation 15.2 % (11.7-14.2); RDW Standard Deviation 56.5 fL (35.1-46.3); Red Blood Cell Count 1.98 M/mm3 (3.80-5.20); White Blood Cell Count 7.78 K/mm3 (4.00-11.30)
[2024-04-22 04:18] LABS: Platelet Count 45 K/mm3 (150-400)
[2024-04-22 04:32] LABS: Alanine Aminotransfer (ALT/SGP 131 U/L (12-78); Albumin/Globulin Ratio 0.8 (0.8-1.8); Alk Phos 111 U/L (50-136); Anion Gap 15 mmol/L (3-11); Aspartate Aminotrans (AST/SGOT 407 U/L (12-37); Bilirubin, Total 4.4 mg/dL (0.1-1.0); Blood Urea Nitrogen 62 mg/dL (8-24); Bun/Creatinine Ratio 34.3 (12.0-20.0); CO2, Blood 19 mmol/L (21-32); Chloride, Blood 108 mmol/L (98-108); Creatinine, Blood 1.81 mg/dL (0.40-1.00); Globulin, Blood 3.6 g/dL (2.2-4.0); Glomerular Filtration Rate 34 (60-); Glucose, Blood 218 mg/dL (70-99); Phosphorus, Blood 2.5 mg/dL (2.5-4.9); Potassium, Blood 3.3 mmol/L (3.5-5.5); Sodium, Blood 139 mmol/L (136-145); Total Protein, Blood 6.6 g/dL (6.4-8.2); Vancomycin, Random 20.6 ug/mL
[2024-04-22] MEDS ORDERED: Potassium Chloride 40 MEQ in NS 250 ML IV ONE (06:00)
--- NOTE | 2024-04-22 06:22 | NUR ---
SHIFT SUMMERY PT REMAINS INTUBATED VIA ETT. PT HAS BEEN PRONED THROUGHOUT THE SHIFT W/Q2 TURNS W/RT. PT HAS BEEN AFIB ON THE LPN PRIVATE DUTY W/VARIABLE RATE. BP STILL REQUIRING PRESSORS TO MAINTAIN MAP >65, SEE [facility] FOR RATES. PT IS ALSO ON INSULIN GTT AND D51/2NS PER MD ORDER. PROPOFOL AND NIMBEX INFUSING WELL-REFER TO [facility] FOR RATES. PT HAS HERRON CATHETER AND RECTAL TUBE INTACT PATENT AND DRAINING TO GRAVITY. TF INFUSING VIA DOBHOFF AT GOAL. SOME MINIMAL BLEEDING FROM MOUTH. DR DARLING NOTIFIED OF ALL LABS AND CRITICAL PLATLET COUNT. AFEBRILE
[2024-04-22 07:43] VITALS: BP 120/82
[2024-04-22] MEDS ORDERED: Vancomycin HCL 1,000 MG in NS 250 ML IV SCH (09:00)
[2024-04-22 10:03] LABS: BASOPHILS PERCENT AUTO 0 % (0-2); EOSINOPHILS ABSOLUTE AUTO 0.01 K/mm3 (0.00-0.68); EOSINOPHILS PERCENT AUTO 0 % (0-6); Hematocrit 19.7 % (33.0-51.0); Hemoglobin 6.8 g/dL (11.5-16.0); IMMATURE GRAN ABSOLUTE AUTO 0.07 K/mm3 (0.00-0.10); IMMATURE GRAN PERCENT AUTO 1 % (0-1); LYMPHOCYTES ABSOLUTE AUTO 0.66 K/mm3 (0.84-5.20); LYMPHOCYTES PERCENT AUTO 9 % (21-46); MONOCYTES ABSOLUTE AUTO 0.72 K/mm3 (0.16-1.47); MONOCYTES PERCENT AUTO 10 % (4-13); Mean Corpuscular HGB 36.2 pg (26.0-34.0); Mean Corpuscular HGB Conc 34.5 g/dL (31.5-36.5); Mean Corpuscular Volume 105 fL (80-100); Mean Platelet Volume 10.5 fL (9.1-12.4); NEUTROPHILS ABSOLUTE AUTO 5.56 K/mm3 (1.96-9.15); NEUTROPHILS PERCENT AUTO 79 % (41-73); NRBC ABSOLUTE 0.04 K/mm3 (0.00-0.02); NRBC Auto 0.6 /100 WBC (0.0-0.2); RDW Coefficient Variation 15.5 % (11.7-14.2); RDW Standard Deviation 58.8 fL (35.1-46.3); Red Blood Cell Count 1.88 M/mm3 (3.80-5.20); White Blood Cell Count 7.02 K/mm3 (4.00-11.30)
[2024-04-22 10:05] VITALS: BP 94/63
[2024-04-22 10:05] LABS: Platelet Count 41 K/mm3 (150-400)
[2024-04-22 10:45] LABS: PCO2 Arterial 35.1 mmHg (35-45); PO2 Arterial 70.8 mmHg (80-100); pH Blood Arterial 7.37 (7.35-7.45)
[2024-04-22] MEDS ORDERED: Insulin Regular 100 UNIT/ML 10ML Vial SC SCH ×2 (12:00→20:00)
[2024-04-22 13:49] VITALS: BP 93/65
[2024-04-22 17:13] VITALS: BP 111/79
--- NOTE | 2024-04-22 18:29 | NUR ---
SHIFT SUMMARY PATIENT NIMBEX D/C AT 1005. CURRENTLY ON PROPOFOL AT 30MCG/KG/MIN. DOES NOT OPEN EYES TO VERBAL STIMULI OR PULL AWAY FROM PAINFUL STIMULI. PUPILS ARE EQUAL AND REACTIVE. UNABLE TO MOVE EXTREMITIES AT THIS TIME. REDUCED PROPOFOL TO REASSESS NEURO STATUS BUT PATIENT UNABLE TO TOLERATE VENT AT 20MCG. +GAG/COUGH/SWALLOW. DOES GRIMACE TO NOXIOUS STIMULI. LUNGS CLEAR/DIM. VENT SETTINGS 20/350/12/40. SPO2 REMAINS ABOVE 95% ON CURRENT SETTINGS. AFIB- AFIB RVR. HR 110-130S. LEVO AT 4MCG TO MAINTAIN A MAP ABOVE 60. CURRENTLY MAP 70S. SBP 90S, DBP 60S. ABDOMEN IS SOFT, HYPOACTIVE BOWEL TONES, LOOSE STOOLS DARK BROWN. HERRON IN PLACED, URINE IS YELLOW. DOBHOFF IN PLACE AT 50CM PIVOT RUNNING AT GOAL OF 35. INSULIN GTT D/C AT 1005 INSULIN SS ORDERS IN PLACE. FAMILY AT BEDSIDE TODAY, AND COUSIN ANAYA. PATIENT RECIEVED 1 PRBC FOR HGB 6.8 TOLERATED WELL.
[2024-04-23 05:07] LABS: BASOPHILS ABSOLUTE AUTO 0.01 K/mm3 (0.00-0.23); BASOPHILS PERCENT AUTO 0 % (0-2); EOSINOPHILS ABSOLUTE AUTO 0.03 K/mm3 (0.00-0.68); EOSINOPHILS PERCENT AUTO 0 % (0-6); Hematocrit 23.7 % (33.0-51.0); Hemoglobin 8.1 g/dL (11.5-16.0); IMMATURE GRAN ABSOLUTE AUTO 0.28 K/mm3 (0.00-0.10); IMMATURE GRAN PERCENT AUTO 3 % (0-1); LYMPHOCYTES ABSOLUTE AUTO 1.01 K/mm3 (0.84-5.20); LYMPHOCYTES PERCENT AUTO 12 % (21-46); MONOCYTES ABSOLUTE AUTO 0.91 K/mm3 (0.16-1.47); MONOCYTES PERCENT AUTO 11 % (4-13); Mean Corpuscular HGB 34.6 pg (26.0-34.0); Mean Corpuscular HGB Conc 34.2 g/dL (31.5-36.5); Mean Corpuscular Volume 101 fL (80-100); Mean Platelet Volume 11.8 fL (9.1-12.4); NEUTROPHILS ABSOLUTE AUTO 6.18 K/mm3 (1.96-9.15); NEUTROPHILS PERCENT AUTO 73 % (41-73); NRBC ABSOLUTE 0.09 K/mm3 (0.00-0.02); NRBC Auto 1.1 /100 WBC (0.0-0.2); RDW Coefficient Variation 17.9 % (11.7-14.2); RDW Standard Deviation 64.5 fL (35.1-46.3); Red Blood Cell Count 2.34 M/mm3 (3.80-5.20); White Blood Cell Count 8.42 K/mm3 (4.00-11.30)
[2024-04-23 05:22] LABS: Platelet Count 44 K/mm3 (150-400)
[2024-04-23 05:31] LABS: Bun/Creatinine Ratio 46.8 (12.0-20.0); Calcium, Blood 8.7 mg/dL (8.5-10.1); Creatinine, Blood 1.54 mg/dL (0.40-1.00); Magnesium, Blood 2.3 mg/dL (1.6-2.4); Phosphorus, Blood 1.5 mg/dL (2.5-4.9); Potassium, Blood 3.6 mmol/L (3.5-5.5)
--- NOTE | 2024-04-23 06:18 | NUR ---
SHIFT MARCO ANTONIOY PT REMAINS INTUBATED W/ETT INTACT AND PATENT TO THE VENT. OXYGEN SAT >95% OVERNIGHT. SOME SPONTANEOUS COUGHING W/MINIMAL SPUTUM FROM IN LINE SUCTIONING. PT HAS BEEN AFIB W/VARYING RATE. HYPOTENSION MANAGED W/LEVOPHED AND VASOPRESSIN, VASOPRESSIN ON SB AT THIS TIME PT IS MAINTAINING A MAP >65 VIA ART LINE. HERRON CATH AND RECTAL TUBE ARE INTACT PATENT AND DRAINING TO GRAVITY. PT WILL GRIMACE TO PAIN AND SLIGHT MOVEMENT OF EXTREMITIES WAS NOTED. NOTHING WAS PURPOSEFUL AND PT HAS NOT OPENED HER EYES. DOBHOFF IN PLACE W/TF INFUSING AT GOAL. PT TOLERATING WELL AT THIS TIME. PLATLETS CONTINUE TO BE CRITICAL, DR DARLING NOTIFIED.
[2024-04-23] MEDS ORDERED: Potassium Phosphate Dibasic 30 MM in Dextrose 5% 500 ML IV ONE (06:25)
[2024-04-23 10:30] VITALS: BP 92/60
[2024-04-23 10:45] VITALS: BP 91/69
[2024-04-23 11:00] VITALS: BP 90/62
[2024-04-23] MEDS ORDERED: Vancomycin HCL 1,000 MG in NS 250 ML IV SCH (11:02)
[2024-04-23 11:15] VITALS: BP 89/68
[2024-04-23 11:30] VITALS: BP 84/64
[2024-04-23] MEDS ORDERED: Furosemide 10 MG / ML 2ML Vial IV SCH (12:00)
[2024-04-23] MEDS ORDERED: dilTIAZem HCL 30 MG TAB PT SCH ×2 (13:26→18:00)
--- NOTE | 2024-04-23 18:10 | NUR ---
Summary. Pt continues ventilated. Propofol off since early afternoon, pt slowly becoming more arousable, will occasionally open eyes to noxious stimuli, does not follow commands. Levophed currently off, MAP maintaining above 65 currently. at bedside most of shift, updated on patient condition frequently today. No acute events, see chart for further details.
[2024-04-23 21:45] LABS: Glucose, Blood 213 mg/dL (70-99)
[2024-04-24] VITALS (29 sets, daily range): BP systolic 81–114; BP diastolic 61–80
[2024-04-24 04:04] LABS: Hematocrit 23.7 % (33.0-51.0); Hemoglobin 8.4 g/dL (11.5-16.0); Mean Corpuscular HGB Conc 35.4 g/dL (31.5-36.5); Mean Corpuscular Volume 99 fL (80-100); Mean Platelet Volume 11.3 fL (9.1-12.4); NRBC Auto 1.6 /100 WBC (0.0-0.2); RDW Coefficient Variation 17.4 % (11.7-14.2); RDW Standard Deviation 62.2 fL (35.1-46.3); White Blood Cell Count 6.45 K/mm3 (4.00-11.30)
[2024-04-24 04:07] LABS: Platelet Count 48 K/mm3 (150-400)
[2024-04-24 04:21] LABS: Bun/Creatinine Ratio 53.6 (12.0-20.0); Calcium, Blood 8.4 mg/dL (8.5-10.1); Creatinine, Blood 1.4 mg/dL (0.40-1.00); Magnesium, Blood 2.3 mg/dL (1.6-2.4); Phosphorus, Blood 2.5 mg/dL (2.5-4.9); Potassium, Blood 3.3 mmol/L (3.5-5.5)
[2024-04-24 04:32] LABS: BAND PERCENT MAN 5 % (0-8); BASOPHILS PERCENT MAN 0 % (0-2); EOSINOPHILS PERCENT MAN 0 % (0-6); LYMPHOCYTES ABSOLUTE MAN 0.64 K/mm3 (0.84-5.20); LYMPHOCYTES PERCENT MAN 10 % (21-46); METAMYELOCYTE ABSOLUTE MAN 0.06 K/mm3 (0.00-0.00); METAMYELOCYTE PERCENT MAN 1 % (0-0); MONOCYTES PERCENT MAN 11 % (4-13); MYELOCYTE ABSOLUTE MAN 0.06 K/mm3 (0.00-0.00); MYELOCYTE PERCENT MAN 1 % (0-0); NEUTROPHILS ABSOLUTE MAN 4.96 K/mm3 (1.96-9.15); SEG NEUTROPHILS PERCENT MAN 72 % (41-73); TOTAL CELLS COUNTED 100
[2024-04-24] MEDS ORDERED: Potassium Chloride 40 MEQ in NS 250 ML IV ONE (05:05)
--- NOTE | 2024-04-24 06:06 | NUR ---
SHIFT SUMMERY PT REMAINS INTUBATED VIA ETT, INTACT AND PATENT TO THE VENT. OXYGEN SAT >95% OVERNIGHT. 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 BP WNL, ALL PRESSORS AND SEDATION HAVE BEEN OFF THIS ENTIRE SHIFT. HERRON CATHETER AND RECTAL TUBE INTACT PATENT AND DRAINING TO GRAVITY. TF INFUSING PER MD ORDER VIA DOBHOFF. PT DID NOT OPEN HER EYES OR FOLLOW COMMANDS. SHE DID COUGH OCCASIONALLY. SLIGHT MOVEMENT OF ALL EXTREMITIES, PT WILL GRIMACE TO PAIN.
[2024-04-24 10:58] LABS: Vancomycin, Trough 22.7 ug/mL (5.0-10.0)
[2024-04-24] MEDS ORDERED: Metoprolol Tartrate 25 MG Tab PT SCH (12:00)
[2024-04-24] MEDS ORDERED: Hydrocortisone Sod Succinate 100 MG Vial IV SCH (16:00)
[2024-04-24] MEDS ORDERED: Heparin Sodium 5000 Units/ML 1ML MDV SC SCH (16:00)
--- NOTE | 2024-04-24 17:58 | NUR ---
Shift Summary Pt sleepy but arousable, follows commands with severe weakness. Afebrile. Afib 110s-160s, BP WNL. Cardizem d/c'd, Metoprolol resumed. ETT intact and secure, Pt placed on PS at 0940 this morning, tolerating well. Requires no sedation. Recieved 25 mcg IV Fentanyl x1. AM bath done. Arterial line removed. Central line removed to [facility], hemostatic dressing placed at 1741 and drainage outlined. PICC placed to [facility]. Diuresed with IV lasix, around 1400 mL UOP total. BMS in place, no leakage noted 125 ml output. Skin intact with ecchymosis to chest s/p CPR. ABX discontinued. Steroid schedule adjusted. and family member at bedside most of shift. Safety, comfort, hygiene addressed.
--- NOTE | 2024-04-24 21:58 | NUR ---
ASSUMPTION OF CARE: ASSUMED CARE OF PT AT 1900. PT INTUBATED, NO SEDATION. OPENS EYES TO VERBAL STIMULI, FOLLOWS COMMANDS AND NODS HEAD YES AND NO TO QUESTIONS. PT NOTICEABLY WEAK IN UPPER EXTREMETIES. ON PS PEEP OF 8 AND FIO2 30%. SPO2 MID TO HIGH 90'S. LUNGS COARSE IN THE UPPER LOBES AND DIM IN THE BASES. PAPER BAG MAKER IN PLACE, AFIB WITH HR 90-100'S. SBP 90-100'S WITH MAP >65. MEDICATED WITH FENTANYL FOR PAIN. HERRON PATENT AND DRAINING TO GRAVITY. RECTAL TUBE DRAINING TO GRAVITY. PICC TO MARKO PATENT AND SALINE LOCKED. DOFHOFF AT 65 CM, INFUSING TUBE FEED AT 30 ML/HR. BED LOW AND LOCKED.
[2024-04-25] VITALS (45 sets, daily range): BP systolic 76–130; BP diastolic 58–108
[2024-04-25 03:46] LABS: Hematocrit 22.9 % (33.0-51.0); Hemoglobin 7.9 g/dL (11.5-16.0); Mean Corpuscular HGB 34.3 pg (26.0-34.0); Mean Corpuscular HGB Conc 34.5 g/dL (31.5-36.5); Mean Corpuscular Volume 100 fL (80-100); Mean Platelet Volume 10.7 fL (9.1-12.4); NRBC ABSOLUTE 0.03 K/mm3 (0.00-0.02); NRBC Auto 0.5 /100 WBC (0.0-0.2); RDW Coefficient Variation 17.8 % (11.7-14.2); RDW Standard Deviation 63.2 fL (35.1-46.3)
[2024-04-25 03:52] LABS: Platelet Count 39 K/mm3 (150-400)
[2024-04-25 04:03] LABS: Bun/Creatinine Ratio 62.7 (12.0-20.0); Calcium, Blood 7.9 mg/dL (8.5-10.1); Creatinine, Blood 1.18 mg/dL (0.40-1.00); Phosphorus, Blood 2.5 mg/dL (2.5-4.9); Potassium, Blood 2.9 mmol/L (3.5-5.5)
[2024-04-25 04:16] LABS: BAND PERCENT MAN 4 % (0-8); BASOPHILS PERCENT MAN 0 % (0-2); EOSINOPHILS ABSOLUTE MAN 0.05 K/mm3 (0.00-0.68); EOSINOPHILS PERCENT MAN 1 % (0-6); LYMPHOCYTES ABSOLUTE MAN 0.52 K/mm3 (0.84-5.20); LYMPHOCYTES PERCENT MAN 9 % (21-46); METAMYELOCYTE ABSOLUTE MAN 0.05 K/mm3 (0.00-0.00); METAMYELOCYTE PERCENT MAN 1 % (0-0); MONOCYTES ABSOLUTE MAN 0.46 K/mm3 (0.16-1.47); MONOCYTES PERCENT MAN 8 % (4-13); MYELOCYTE ABSOLUTE MAN 0.11 K/mm3 (0.00-0.00); MYELOCYTE PERCENT MAN 2 % (0-0); NEUTROPHILS ABSOLUTE MAN 4.58 K/mm3 (1.96-9.15); SEG NEUTROPHILS PERCENT MAN 75 % (41-73); TOTAL CELLS COUNTED 100
[2024-04-25] MEDS ORDERED: Potassium Chloride 40 MEQ in NS 250 ML IV ONE (04:20)
--- NOTE | 2024-04-25 05:52 | NUR ---
SHIFT SUMMARY: NO ACUTE CHANGES OVERNIGHT. PT REMAINS INTUBATED. FOLLOWS DIRECTIONS AND SHAKES HEAD YES/NO. DENIES PAIN WHEN ASKED. VENT SETTINGS UNCHANGED. SPO2 MID 90'S. REMAINS IN AFIB WITH HR 90-110'S. SBP 90-110'S. PICC REMAINS PATENT, POTASSIUM INFUSING. TUBE FEED AT 30 ML/HR THROUGH DOBHOFF. HERRON PATENT AND DRAINING TO GRAVITY, YELLOW URINE. RECTAL TUBE DRAINING TO GRAVITY. BED LOW AND LOCKED.
[2024-04-25] MEDS ORDERED: Potassium Chloride 20 MEQ/15 ML UDC PO ONE ×2 (10:10→22:10)
[2024-04-25] MEDS ORDERED: Furosemide 10 MG / ML 2ML Vial IV ONE (11:05)
--- NOTE | 2024-04-25 14:29 | NUR ---
"Spiritual Care Visit | Family Check in . Pt. isresting and is still intubated. Pts. cousin is at bedside and welcomes my visit. facilitated an update and listened to the known plan of care moving forward. Assessed the emotional well being of the family. Cousin is very supportive at bedside, and verbalizes gratitude for the spiritual care visit."
--- NOTE | 2024-04-25 16:59 | NUR ---
SHIFT SUMMARY PT SLEEPING/AROUSABLE, RASS -1, NO SEDATION, ATIVAN GIVEN ONCE THIS SHIFT. FOLLOWS COMMANDS WITH ALL EXTREMITIES W/ WEAKNESS. NODS YES/NO APPROPRIATELY. AFEBRILE. DAY 2 OF VENT SETTINGS PS 30% +8. TOLERATING WELL. LUNGS CLEAR TO AUSCULTATION. ATRIAL FIBRILLATION 100S-120S, SOFT BPS. 20MG LASIX IV X2, LESS UOP TODAY WITH SOME SEDIMENT. TEMP SENSING HERRON TO GRAVITY. BMS INTACT AND IN PLACE, DRAINING TO GRAVITY. PICC TO RUE. DOBHOFF TO LEFT NARE AT 65CM, PIVOT 30ML/HR 30ML Q4H FWF. RESTRAINTS SECURE, INTACT, APPLIED APPROPRIATELY. FAMILY AT BEDSIDE, UPDATED TO STATUS AND PLAN OF CARE. SAFETY, COMFORT, HYGIENE ADDRESSED.
--- NOTE | 2024-04-25 22:30 | NUR ---
ASSUMED CARE AT 1900 PATIENT RESPONDS TO VERBAL STIMULI, FOLLOWS COMMANDS. NODS YES/NO. SP02 98% ON VENT PS PEEP 8.0, FI02 30%. HR A.FIB 100-120. BP STABLE. DOBHOFF WITH TF AT GOAL RATE. TEMP HERRON PATENT AND DRAINING TO GRAVITY. RECTAL TUBE DRAINING TO GRAVITY, LIQUID BROWN. REPOSITIONED AND CALL LIGHT IN REACH
[2024-04-26] VITALS (55 sets, daily range): BP systolic 86–127; BP diastolic 55–104
[2024-04-26 04:52] LABS: BASOPHILS ABSOLUTE AUTO 0.01 K/mm3 (0.00-0.23); BASOPHILS PERCENT AUTO 0 % (0-2); EOSINOPHILS ABSOLUTE AUTO 0.01 K/mm3 (0.00-0.68); EOSINOPHILS PERCENT AUTO 0 % (0-6); Hematocrit 25.9 % (33.0-51.0); Hemoglobin 8.9 g/dL (11.5-16.0); IMMATURE GRAN PERCENT AUTO 2 % (0-1); LYMPHOCYTES ABSOLUTE AUTO 0.72 K/mm3 (0.84-5.20); LYMPHOCYTES PERCENT AUTO 9 % (21-46); MONOCYTES ABSOLUTE AUTO 0.98 K/mm3 (0.16-1.47); MONOCYTES PERCENT AUTO 12 % (4-13); Mean Corpuscular HGB 34.5 pg (26.0-34.0); Mean Corpuscular HGB Conc 34.4 g/dL (31.5-36.5); Mean Corpuscular Volume 100 fL (80-100); Mean Platelet Volume 12.3 fL (9.1-12.4); NEUTROPHILS ABSOLUTE AUTO 6.41 K/mm3 (1.96-9.15); NEUTROPHILS PERCENT AUTO 77 % (41-73); NRBC ABSOLUTE 0.06 K/mm3 (0.00-0.02); NRBC Auto 0.7 /100 WBC (0.0-0.2); Platelet Count 51 K/mm3 (150-400); RDW Coefficient Variation 18.2 % (11.7-14.2); RDW Standard Deviation 63.7 fL (35.1-46.3); Red Blood Cell Count 2.58 M/mm3 (3.80-5.20); White Blood Cell Count 8.33 K/mm3 (4.00-11.30)
[2024-04-26 05:42] LABS: Albumin, Blood 2.8 g/dL (3.4-5.0); Albumin/Globulin Ratio 0.7 (0.8-1.8); Bilirubin, Total 6.5 mg/dL (0.1-1.0); Bun/Creatinine Ratio 70.5 (12.0-20.0); Calcium, Blood 8.4 mg/dL (8.5-10.1); Creatinine, Blood 1.22 mg/dL (0.40-1.00); Globulin, Blood 4.1 g/dL (2.2-4.0); Phosphorus, Blood 2.7 mg/dL (2.5-4.9); Total Protein, Blood 6.9 g/dL (6.4-8.2)
--- NOTE | 2024-04-26 06:09 | NUR ---
SHIFT SUMMARY PATIENT RESPONDS TO VERBAL STIMULI, FOLLOWS COMMANDS. MEDICATED FOR DISCOMFORT PRN PER EMAR. SP02 93% ON VENT, ON VC FOR PART OF THE NIGHT, SWITCHED BACK TO PS THIS AM. HR A.FIB 110-130s, BP STABLE. DOBHOFF WITH TF AT GOAL RATE. TEMP HERRON PATENT AND DRAINING TO GRAVITY. RECTAL TUBE DRAINING LIQUID BROWN TO GRAVITY. TURNED Q2 HOURS. CALL LIGHT IN REACH
[2024-04-26] MEDS ORDERED: Sodium Chloride 0.45% 1,000 ML IV SCH (07:55)
[2024-04-26] MEDS ORDERED: Digoxin 0.25 MG/ML 2ML Amp IV SCH (08:30)
[2024-04-26 09:40] LABS: INFLUENZA A AG Positive (NEGATIVE)
--- NOTE | 2024-04-26 12:27 | NUR ---
Spiritual Care Visit. Pt. has been extubated and responded to this assistant strength coach's greeting. Family are present at bedside and continue to be supportive. This assistant strength coach verbalized encouragement and pastoral care. Will continue to support the Pt. and family.
--- NOTE | 2024-04-26 19:06 | NUR ---
Summary. Pt extubated today with good effect. On 2L 02 via NC, resting comfortably. Family at bedside for extubation. No acute events since extubation, see chart for details.
[2024-04-27] VITALS (42 sets, daily range): BP systolic 101–123; BP diastolic 67–97
[2024-04-27 05:35] LABS: BASOPHILS ABSOLUTE AUTO 0.02 K/mm3 (0.00-0.23); BASOPHILS PERCENT AUTO 0 % (0-2); EOSINOPHILS PERCENT AUTO 0 % (0-6); Hematocrit 24.8 % (33.0-51.0); Hemoglobin 8.5 g/dL (11.5-16.0); IMMATURE GRAN ABSOLUTE AUTO 0.23 K/mm3 (0.00-0.10); IMMATURE GRAN PERCENT AUTO 2 % (0-1); LYMPHOCYTES PERCENT AUTO 6 % (21-46); MONOCYTES ABSOLUTE AUTO 0.69 K/mm3 (0.16-1.47); MONOCYTES PERCENT AUTO 7 % (4-13); Mean Corpuscular HGB 35.3 pg (26.0-34.0); Mean Corpuscular HGB Conc 34.3 g/dL (31.5-36.5); Mean Corpuscular Volume 103 fL (80-100); Mean Platelet Volume 11.4 fL (9.1-12.4); NEUTROPHILS ABSOLUTE AUTO 7.97 K/mm3 (1.96-9.15); NEUTROPHILS PERCENT AUTO 84 % (41-73); NRBC ABSOLUTE 0.03 K/mm3 (0.00-0.02); NRBC Auto 0.3 /100 WBC (0.0-0.2); RDW Coefficient Variation 18.5 % (11.7-14.2); RDW Standard Deviation 66.2 fL (35.1-46.3); Red Blood Cell Count 2.41 M/mm3 (3.80-5.20); White Blood Cell Count 9.51 K/mm3 (4.00-11.30)
[2024-04-27 05:46] LABS: Platelet Count 50 K/mm3 (150-400)
[2024-04-27 06:07] LABS: Bun/Creatinine Ratio 79.7 (12.0-20.0); Calcium, Blood 8.4 mg/dL (8.5-10.1); Creatinine, Blood 1.18 mg/dL (0.40-1.00); Potassium, Blood 3.9 mmol/L (3.5-5.5)
--- NOTE | 2024-04-27 06:18 | NUR ---
SHIFT SUMMARY PT S/P EXTUBATION YESTERDAY REMAINED STABLE ON 2LNC, PRODUCTIVE COUGH AND ABLE TO CLEAR SECRETIONS. PT IS DROWSY BUT DID NOT SLEEP MUCH THROUGHOUT THE NIGHT. SHE IS ORIENTED TO SELF AND PLACE AND ASKED OFTEN WHEN SHE COULD GO HOME. AFIB RVR 100S-130S WITH PVCS.
[2024-04-27] MEDS ORDERED: Enoxaparin 40 MG/0.4 ML SYR SC SCH (10:10)
[2024-04-27] MEDS ORDERED: Digoxin 0.25 MG/ML 2ML Amp IV SCH (11:45)
[2024-04-27] MEDS ORDERED: Insulin Regular 100 UNIT/ML 10ML Vial SC SCH (12:00)
[2024-04-27] MEDS ORDERED: Insulin Glargine-Yfgn 100 Unit/mL 3 ML SYR SC ONE (12:00)
--- NOTE | 2024-04-27 16:33 | NUR ---
Spiritual Care Visit. Pt. is AWAKE and welcomes my visit. Cousin is at bedside. This certified court/medical interpreter has been with the family and Pt. since the beginning of the Pts. hospitalization. Today is the first day that I was able to have conversation with the Pt. Facilitaed an update of the past few days, in such a way that the Pt. did not have to speak much. Pt. welcomed prayer. Prayed with Pt. Pt. verbalized gratitude for the spiritual care visit. Pt. and cousin welcomed this certified court/medical interpreter to return.
--- NOTE | 2024-04-27 18:19 | NUR ---
SHIFT SUMMARY THIS RN ASSUMED CARE OF PT @ 1600. PER REPORT PT WORKED WITH PHYSICAL THERAPY AND SPEECH THERAPY TODAY. PT IN CHAIR, ALERT TO PERSON, TOWN, AND FAMILY. FOLLOWING SIMPLE COMMANDS, VERY WEAK, CAN MINIMALLY MOVE EXTREMITIES. ON 2LPM O2 VIA NC, STRONG COUGH, SCANT OUTPUT. NGT c TF @ GOAL. RECTAL TUBE DRAINING LOOSE BROWN STOOL. TEMP PROBE HERRON DRAINING ANTONIA URINE. PT MOVED BACK TO BED VIA LIFT, TOLERATED WELL. FAMILY AT BEDSIDE.
[2024-04-28] VITALS (23 sets, daily range): BP systolic 105–123; BP diastolic 64–107
[2024-04-28 04:05] LABS: BASOPHILS ABSOLUTE AUTO 0.03 K/mm3 (0.00-0.23); BASOPHILS PERCENT AUTO 0 % (0-2); EOSINOPHILS ABSOLUTE AUTO 0.12 K/mm3 (0.00-0.68); EOSINOPHILS PERCENT AUTO 1 % (0-6); Hematocrit 26.9 % (33.0-51.0); Hemoglobin 9.3 g/dL (11.5-16.0); IMMATURE GRAN ABSOLUTE AUTO 0.28 K/mm3 (0.00-0.10); IMMATURE GRAN PERCENT AUTO 2 % (0-1); LYMPHOCYTES ABSOLUTE AUTO 1.26 K/mm3 (0.84-5.20); LYMPHOCYTES PERCENT AUTO 7 % (21-46); MONOCYTES ABSOLUTE AUTO 1.02 K/mm3 (0.16-1.47); MONOCYTES PERCENT AUTO 6 % (4-13); Mean Corpuscular HGB 35.5 pg (26.0-34.0); Mean Corpuscular HGB Conc 34.6 g/dL (31.5-36.5); Mean Corpuscular Volume 103 fL (80-100); Mean Platelet Volume 11.8 fL (9.1-12.4); NEUTROPHILS ABSOLUTE AUTO 14.77 K/mm3 (1.96-9.15); NEUTROPHILS PERCENT AUTO 85 % (41-73); NRBC ABSOLUTE 0.16 K/mm3 (0.00-0.02); NRBC Auto 0.9 /100 WBC (0.0-0.2); Platelet Count 69 K/mm3 (150-400); RDW Coefficient Variation 18.6 % (11.7-14.2); RDW Standard Deviation 65.1 fL (35.1-46.3); Red Blood Cell Count 2.62 M/mm3 (3.80-5.20); White Blood Cell Count 17.48 K/mm3 (4.00-11.30)
[2024-04-28 04:22] LABS: Bun/Creatinine Ratio 80.8 (12.0-20.0); Calcium, Blood 9.3 mg/dL (8.5-10.1); Creatinine, Blood 1.25 mg/dL (0.40-1.00); Potassium, Blood 3.6 mmol/L (3.5-5.5)
--- NOTE | 2024-04-28 05:54 | NUR ---
SHIFT SUMMERY PT HAS BEEN ALERT AND ORIENTED X 3 OVERNIGHT. SHE CAN FOLLOW COMMANDS W/GENERALIZED WEAKNESS. SHE IS SLOW TO RESPOND VERBALLY BUT CONVERSATION HAS BEEN APPROPRIATE. SHE HAS HAD A FREQUENT COUGH OVERNIGHT. SHE REMAINS IN AFIB ON THE COAT PRESSER. BP WNL. HERRON CATH INTACT PATENT AND DRAINING. RECTAL TUBE INTACT PATENT AND DRAING TO GRAVITY. OXYGEN SAT >95% ON 3L NC OVERNIGHT W/NO RESP DISTRESS. PT DENIED ANY PAIN/DISCOMFORT. TF INFUSING AT GOAL VIA DOBHOFF. NO ACUTE CHANGES OVERNIGHT.
--- NOTE | 2024-04-28 07:15 | NUR ---
ASSUMPTION OF CARE: ASSUMED CARE OF PATIENT. PATIENT RESTING IN BED. PATIENT ALERT, SLOW TO RESPOND AND ANSWERING QUESTIONS ABLE. PATIENT ON 2L VIA NC. SPO2 >92%. PATIENT DENIES SHORTNESS OF BREATH AT THIS TIME. RR IN THE 20'S. PATIENT HAS AN ONGOING MOIST COUGH. LUNG SOUNDS ARE COARSE THROUGHOUT. VITALS STABLE WITH MAPS >65 AND HR IN THE 80S. AFIB AT THIS TIME. HERRON IN PLACE AND FREELY DRAINING DARK YELLOW URINE. RECTAL TUBE IN PLACE FREELY DRAINING LIQUID STOOL. TKO INFUSING INTO PICC LINE IN MARKO.
[2024-04-28 08:21] LABS: Albumin, Blood 3.2 g/dL (3.4-5.0); Albumin/Globulin Ratio 0.8 (0.8-1.8); Bilirubin, Direct 4.4 mg/dL (0.0-0.3); Bilirubin, Total 8.4 mg/dL (0.1-1.0); Total Protein, Blood 7.2 g/dL (6.4-8.2)
--- NOTE | 2024-04-28 15:39 | NUR ---
assumption of care this rn assumed care from pritesh rn at 1445 and did beside shift report. patient sitting in chair at this time with family present. patient on ssis developer showing afib 80-90s. spo2 >90% on 2.5l nc, respirations in the high 20s and bp stable. patient is alert and oriented to family, place, and month. patient unable to state correct year, stating it was "2023". this rn oriented to correct year and where the patient is at. patient denies pain, chest pain/pressure or shortness of breath. carrero catheter draining to gravity yellow coloration, and rectal tube in place drainig with gravity. tube feed going at goal rate of 50mls/hr and flush of 110mls every 4 hours, dobhoff in place at 65cm. see shift assessment for further detials.
--- NOTE | 2024-04-28 17:37 | NUR ---
shift summary patient vitals remain stable. no acute changes since previous note. patient has family memeber in room. plan remains up to date
[2024-04-28] MEDS ORDERED: Banana Flakes/Tos 1 EA Powder Pack PT SCH (21:00)
[2024-04-28] MEDS ORDERED: Piperacillin/Tazobactam Sod 4.5 GM in NS 100 ML IV SCH (22:17)
[2024-04-29] VITALS (12 sets, daily range): BP systolic 104–119; BP diastolic 64–91
--- NOTE | 2024-04-29 06:38 | NUR ---
END OF SHIFT NOTE: NO ACUTE EVENTS OCCURRED OVERNIGHT. PT CURRENTLY RESTING IN BED WITH HR IN THE 90s, O2 98% ABD BP 119/83. PT HAS BEEN NPO SINCE 0000 IN PREPARATION OF ABDOMINAL ULTRASOUND THIS AM.
[2024-04-29 07:39] LABS: BASOPHILS ABSOLUTE AUTO 0.02 K/mm3 (0.00-0.23); BASOPHILS PERCENT AUTO 0 % (0-2); EOSINOPHILS ABSOLUTE AUTO 0.21 K/mm3 (0.00-0.68); EOSINOPHILS PERCENT AUTO 1 % (0-6); Hematocrit 27.2 % (33.0-51.0); Hemoglobin 9.1 g/dL (11.5-16.0); IMMATURE GRAN ABSOLUTE AUTO 0.21 K/mm3 (0.00-0.10); IMMATURE GRAN PERCENT AUTO 1 % (0-1); LYMPHOCYTES ABSOLUTE AUTO 0.83 K/mm3 (0.84-5.20); LYMPHOCYTES PERCENT AUTO 5 % (21-46); MONOCYTES ABSOLUTE AUTO 0.72 K/mm3 (0.16-1.47); MONOCYTES PERCENT AUTO 5 % (4-13); Mean Corpuscular HGB 35.1 pg (26.0-34.0); Mean Corpuscular HGB Conc 33.5 g/dL (31.5-36.5); Mean Corpuscular Volume 105 fL (80-100); Mean Platelet Volume 11.4 fL (9.1-12.4); NEUTROPHILS ABSOLUTE AUTO 13.82 K/mm3 (1.96-9.15); NEUTROPHILS PERCENT AUTO 88 % (41-73); NRBC ABSOLUTE 0.03 K/mm3 (0.00-0.02); NRBC Auto 0.2 /100 WBC (0.0-0.2); Platelet Count 57 K/mm3 (150-400); RDW Coefficient Variation 18.8 % (11.7-14.2); RDW Standard Deviation 67.7 fL (35.1-46.3); Red Blood Cell Count 2.59 M/mm3 (3.80-5.20); White Blood Cell Count 15.81 K/mm3 (4.00-11.30)
[2024-04-29 08:01] LABS: Albumin, Blood 2.5 g/dL (3.4-5.0); Albumin/Globulin Ratio 0.7 (0.8-1.8); Bun/Creatinine Ratio 77.3 (12.0-20.0); Calcium, Blood 9.2 mg/dL (8.5-10.1); Globulin, Blood 3.8 g/dL (2.2-4.0); Potassium, Blood 3.6 mmol/L (3.5-5.5); Total Protein, Blood 6.3 g/dL (6.4-8.2)
--- NOTE | 2024-04-29 15:35 | NUR ---
CARE NOTE PT ALERT, SHE APPEARS FATIGUED BY MINIMAL EFFORTS SUCH WITH MOVING ARMS OR TRANSFERRING FROM BED TO CHAIR. TF INFUSING PER EMAR ORDERS. TEMPERATURE NOTED TO BE 99.8, BLANKET REMOVED AND FAN PROVIDED. FAMILY HAS JUST LEFT THE BEDSIDE. OCCASSIONAL NON-PRODUCTIVE COUGH NOTED. CALL LIGHT IS W/IN REACH.
--- NOTE | 2024-04-29 17:40 | NUR ---
SHIFT SUMMARY PT WAKES EASILY TO VERBAL STIMULI BUT HAS BEEN SOMNOLENT DURING SHIFT. SHE IS ORIENTED X 4. SHE HAS GENERALIZED WEAKNESS AND HAS BEEN A LIFT PT W/Q2 TURNING TO KEEP OFF OF PRESSURE POINTS. PER CONTINUEOUS HEART MONITORING, HR IS AFIB 80-90'S, BP STABLE. SPO2 MAINTAINED >95% VIA 2L NC, SHE DENIES FEELING SOB AND RR APPEAR EVEN. HER TEMPERATURE HAS GONE FROM 98.4 TO 100.1, DR. SOTO MADE AWARE AND ORDER FOR BLOOD CULTURES PLACED BY . SHE IS NPO AND HAS CONTINUOUS TF RUNNING AT GOAL RATE OF 50ML/HR W/ Q4 FLUSHES OF 110ML H20. RECTAL TUBE IS IN PLACE W/ BROWN GREEN OUTPUT. HERRON CATHETER IS IN PLACE AND DRAINING TO GRAVITY. NON-PRODUCTIVE COUGH NOTED. HER SIGNIFICANT OTHER BILL HAS BEEN AT BEDSIDE DURING SHIFT. SHE IS CURRENTLY SITTING UP IN CHAIR, CALL LIGHT IS W/IN REACH.
[2024-04-30] VITALS: BP 118/74
[2024-04-30 04:00] VITALS: BP 120/89
--- NOTE | 2024-04-30 05:21 | NUR ---
SHIFT SUMMARY: THIS PT HAD NO ACUTE EVENTS OVERNIGHT AND HAS BEEN SLEEPING MOST OF THE NIGHT. PT IS CURRENTLY SLEEPING IN BED AND HAS NOT COMPLAINED OF PAIN OVERNIGHT. CURRENT VITALS ARE HR IN 90s, 02 SAT 92%, AND BP 120/89.
[2024-04-30 06:03] LABS: BASOPHILS ABSOLUTE AUTO 0.02 K/mm3 (0.00-0.23); BASOPHILS PERCENT AUTO 0 % (0-2); EOSINOPHILS ABSOLUTE AUTO 0.21 K/mm3 (0.00-0.68); EOSINOPHILS PERCENT AUTO 2 % (0-6); Hematocrit 28.2 % (33.0-51.0); Hemoglobin 9.3 g/dL (11.5-16.0); IMMATURE GRAN PERCENT AUTO 1 % (0-1); LYMPHOCYTES ABSOLUTE AUTO 0.83 K/mm3 (0.84-5.20); LYMPHOCYTES PERCENT AUTO 7 % (21-46); MONOCYTES ABSOLUTE AUTO 0.62 K/mm3 (0.16-1.47); MONOCYTES PERCENT AUTO 5 % (4-13); Mean Corpuscular HGB 34.8 pg (26.0-34.0); Mean Corpuscular Volume 106 fL (80-100); Mean Platelet Volume 11.3 fL (9.1-12.4); NEUTROPHILS ABSOLUTE AUTO 11.02 K/mm3 (1.96-9.15); NEUTROPHILS PERCENT AUTO 86 % (41-73); NRBC ABSOLUTE 0.03 K/mm3 (0.00-0.02); NRBC Auto 0.2 /100 WBC (0.0-0.2); Platelet Count 51 K/mm3 (150-400); RDW Coefficient Variation 19.4 % (11.7-14.2); RDW Standard Deviation 68.6 fL (35.1-46.3); Red Blood Cell Count 2.67 M/mm3 (3.80-5.20)
[2024-04-30 06:26] LABS: Albumin, Blood 2.2 g/dL (3.4-5.0); Albumin/Globulin Ratio 0.6 (0.8-1.8); Bilirubin, Total 9.1 mg/dL (0.1-1.0); Bun/Creatinine Ratio 67.8 (12.0-20.0); Calcium, Blood 8.6 mg/dL (8.5-10.1); Creatinine, Blood 0.92 mg/dL (0.40-1.00); Globulin, Blood 3.9 g/dL (2.2-4.0); Potassium, Blood 3.4 mmol/L (3.5-5.5); Total Protein, Blood 6.1 g/dL (6.4-8.2)
[2024-04-30] MEDS ORDERED: Dextrose 5% 1,000 ML IV SCH (07:45)
[2024-04-30] MEDS ORDERED: Potassium Chloride 20 MEQ/15 ML UDC PT ONE ×2 (07:50→11:20)
[2024-04-30 08:00] VITALS: BP 120/82
--- NOTE | 2024-04-30 08:26 | NUR ---
ASSUMPTION OF CARE ASSUMED CARE OF PATIENT FROM AM ONCOMING NURSE AT 0740. TRANSPORTED TO [facility] FOR PROCEDURE.
[2024-04-30] MEDS ORDERED: NS IV ONE (08:30)
[2024-04-30] MEDS ORDERED: SINCALIDE IV ONE (08:30)
[2024-04-30 12:00] VITALS: BP 116/73
[2024-04-30 16:00] VITALS: BP 108/78
[2024-04-30 20:00] VITALS: BP 103/75
[2024-05-01] VITALS: BP 85/73
[2024-05-01 04:56] LABS: BASOPHILS ABSOLUTE AUTO 0.01 K/mm3 (0.00-0.23); BASOPHILS PERCENT AUTO 0 % (0-2); EOSINOPHILS ABSOLUTE AUTO 0.27 K/mm3 (0.00-0.68); EOSINOPHILS PERCENT AUTO 2 % (0-6); Hematocrit 25.2 % (33.0-51.0); Hemoglobin 8.2 g/dL (11.5-16.0); IMMATURE GRAN ABSOLUTE AUTO 0.11 K/mm3 (0.00-0.10); IMMATURE GRAN PERCENT AUTO 1 % (0-1); LYMPHOCYTES ABSOLUTE AUTO 0.88 K/mm3 (0.84-5.20); LYMPHOCYTES PERCENT AUTO 7 % (21-46); MONOCYTES PERCENT AUTO 6 % (4-13); Mean Corpuscular HGB 34.9 pg (26.0-34.0); Mean Corpuscular HGB Conc 32.5 g/dL (31.5-36.5); Mean Corpuscular Volume 107 fL (80-100); Mean Platelet Volume 11.5 fL (9.1-12.4); NEUTROPHILS ABSOLUTE AUTO 10.34 K/mm3 (1.96-9.15); NEUTROPHILS PERCENT AUTO 84 % (41-73); Platelet Count 53 K/mm3 (150-400); RDW Coefficient Variation 19.8 % (11.7-14.2); RDW Standard Deviation 71.3 fL (35.1-46.3); Red Blood Cell Count 2.35 M/mm3 (3.80-5.20); White Blood Cell Count 12.31 K/mm3 (4.00-11.30)
[2024-05-01 05:22] LABS: Albumin, Blood 2.1 g/dL (3.4-5.0); Albumin/Globulin Ratio 0.6 (0.8-1.8); Bilirubin, Total 7.5 mg/dL (0.1-1.0); Bun/Creatinine Ratio 56.4 (12.0-20.0); Calcium, Blood 8.3 mg/dL (8.5-10.1); Creatinine, Blood 0.91 mg/dL (0.40-1.00); Globulin, Blood 3.6 g/dL (2.2-4.0); Potassium, Blood 3.7 mmol/L (3.5-5.5); Total Protein, Blood 5.7 g/dL (6.4-8.2)
--- NOTE | 2024-05-01 06:39 | NUR ---
SHIFT SUMMARY: THIS PT SLEPT MOST OF THE NIGHT AND NO ACUTE EVENTS OCCURRED OVERNIGHT. TEMP DID RISE CLOSE TO END OF SHIFT AND SO AN ICE PACK WAS PLACED. PT TOLERATED LIFT FROM CHAIR TO BED WELL AND OVERALL IS RESTING COMFORTABLY.
[2024-05-01 08:00] VITALS: BP 113/75
--- NOTE | 2024-05-01 10:20 | NUR ---
ASSUMED CARE OF PATIENT AT APPROXIMATELY 0700. REPORT RECEIVED FROM NELLY DUKES. PT AWAKE IN BED, INTERACTING WITH STAFF APPROPRIATELY DURING BEDSIDE REPORT. CONTINOUS CARDIAC MONITORING IN PLACE SHOWS AFIB, BP STABLE. ON 4LPM O2 VIA NC WITH SATURATION > 92%. RECTAL TUBE AND HERRON IN PLACE. FAMILY AT BEDSIDE. NO ACUTE NEEDS IDENTIFED AT THIS TIME. SEE SHIFT ASSESSMENT FOR FULL DETAILS.
[2024-05-01] MEDS ORDERED: GuaiFENesin 100 MG/5 ML 5ML UDC PO PRN (14:30)
[2024-05-01] MEDS ORDERED: Dextrose 5% 1,000 ML IV SCH (15:00)
[2024-05-01 16:52] VITALS: BP 118/77
--- NOTE | 2024-05-01 17:45 | NUR ---
SHIFT SUMMARY PT REMAINED ALERT AND ORIENTED X 4 T/O ENTIRETY OF SHIFT. ABLE TO FOLLOW COMMANDS, MAKE PURPOSEFUL MOVEMENTS, AND MAKE NEEDS KNOWN. TMAX 101.1. DENIES PAIN. CONTINUOUS CARDIAC MONITORING IN PLACE SHOWS AFIB, BP STABLE. ON 4LPM O2 VIA NC WITH O2 SATURATIONS > 92%. CPT PERFORMED THIS SHIFT PER RT. RECTAL TUBE REMAINS PATENT AND DRAINING TO GRAVITY. TF RATE DECREASED TO 35 PER DIETARY. MINCED AND MOIST DIET ORDERED PER ST. PT HAS DECREASED APPETITE. TEMP HERRON PATENT AND DRAINING TO GRAVITY. MARKO PICC PATENT, D5 INFUSING AT 100mL/HR. WILL CONTINUE TO MONITOR AND REPORT TO ONCOMING RN.
[2024-05-01 20:02] VITALS: BP 109/81
[2024-05-01 23:52] VITALS: BP 108/82
[2024-05-02] VITALS (8 sets, daily range): BP systolic 106–125; BP diastolic 66–87
[2024-05-02 04:22] LABS: BASOPHILS ABSOLUTE AUTO 0.02 K/mm3 (0.00-0.23); BASOPHILS PERCENT AUTO 0 % (0-2); EOSINOPHILS ABSOLUTE AUTO 0.22 K/mm3 (0.00-0.68); EOSINOPHILS PERCENT AUTO 2 % (0-6); Hematocrit 25.3 % (33.0-51.0); Hemoglobin 8.3 g/dL (11.5-16.0); IMMATURE GRAN ABSOLUTE AUTO 0.08 K/mm3 (0.00-0.10); IMMATURE GRAN PERCENT AUTO 1 % (0-1); LYMPHOCYTES ABSOLUTE AUTO 1.03 K/mm3 (0.84-5.20); LYMPHOCYTES PERCENT AUTO 8 % (21-46); MONOCYTES PERCENT AUTO 6 % (4-13); Mean Corpuscular HGB Conc 32.8 g/dL (31.5-36.5); Mean Corpuscular Volume 107 fL (80-100); Mean Platelet Volume 12.2 fL (9.1-12.4); NEUTROPHILS ABSOLUTE AUTO 10.35 K/mm3 (1.96-9.15); NEUTROPHILS PERCENT AUTO 83 % (41-73); NRBC ABSOLUTE 0.02 K/mm3 (0.00-0.02); NRBC Auto 0.2 /100 WBC (0.0-0.2); RDW Coefficient Variation 19.9 % (11.7-14.2); RDW Standard Deviation 71.8 fL (35.1-46.3); Red Blood Cell Count 2.37 M/mm3 (3.80-5.20)
[2024-05-02 04:35] LABS: Platelet Count 50 K/mm3 (150-400)
[2024-05-02 04:51] LABS: Albumin, Blood 2.2 g/dL (3.4-5.0); Albumin/Globulin Ratio 0.6 (0.8-1.8); Bilirubin, Total 8.9 mg/dL (0.1-1.0); Bun/Creatinine Ratio 50.7 (12.0-20.0); Calcium, Blood 8.2 mg/dL (8.5-10.1); Creatinine, Blood 0.87 mg/dL (0.40-1.00); Potassium, Blood 3.7 mmol/L (3.5-5.5); Total Protein, Blood 6.2 g/dL (6.4-8.2)
[2024-05-02] MEDS ORDERED: Potassium Chloride 20 MEQ/15 ML UDC PO ONE (06:00)
--- NOTE | 2024-05-02 06:22 | NUR ---
SHIFT SUMMARY PT REMAINS ALERT AND ORIENTED TO SELF, ORIENTED X3 START OF SHIFT AND NOW ORIENTED TO PERSON ONLY, TALKING TO UNSEEN OTHERS AND LAUGHING TO SELF, PULLING ON HERRON AND RECTAL TUBE, REFUSING ORAL CARE AND ORAL SUCTION WITH NOTED WEAK MOIST NONPRODUCTIVE COUGH, TMAX 101.1F, TURNED AND REPOSITIONED EVERY 2 HOURS FOR COMFORT, BP STABLE, AFIB RHYTHM 90-110s, O2 AT 4 LPM NC WITH SPO2>90%, RIGHT NARE DOBHOFF PATENT AND SECURED AT 65 CM WITH TAPE, PIVOT 1.5 INFUSING AT 35 ML/HR WITH NO RESIDUAL NOTED, PT TOLERATING WELL, HERRON AND RECTAL TUBE PATENT AND DRAINING TO GRAVITY, RIGHT UPPER ARM TL PICC PATENT WITH D5 INFUSING AT 100 ML/HR, MADE AWARE OF AM LABS WITH POTASSIUM REPLACEMENT GIVEN VIA NGT.SIDE RAILS UP X3, HOB UP 45 DEGREES, CALL LIGHT IN REACH
--- NOTE | 2024-05-02 07:33 | NUR ---
ASSUMED CARE OF PATIENT AT APPROXIMATELY 0700. REPORT RECEIVED FROM NELLY VILLEGAS. PT AWAKE IN BED, TALKING c WHO IS AT BEDSIDE DURING BEDSIDE REPORT. CONTINUOUS CARDIAC MONITORING IS IN PLACE SHOWING AFIB, BP STABLE. ON 4LPM O2 VIA NC c SATURATION > 92% HERRON AND RECTAL TUBE STILL PATENT. PICC TO MARKO. SEE SHIFT ASSESSMENT FOR FULL DETAILS.
[2024-05-02] MEDS ORDERED: Lactobacil 2-S.Thermo-Bifido 1 1 Cap PT SCH (09:00)
[2024-05-02] MEDS ORDERED: QUEtiapine Fumarate 25 MG Tab PT PRN (14:40)
--- NOTE | 2024-05-02 18:07 | NUR ---
SHIFT SUMMARY PT REMAINED ALERT, ORIENTED TO ALL EXCEPT PLACE SHE STATES SHE IS AT AN EDUCATION CENTER IN [place]. ONCE PT IS REMINDED THAT SHE IS IN [facility] SHE STATES THAT SHE REMEMBERS BEING REALLY SICK FOR A LONG TIME. FOLLOWS COMMANDS AND MAKES PURPOSEUL MOVEMENTS, ABLE TO VERBALIZE NEEDS. AFEBRILE. DENIES PAIN. CONTINUOUS CARDIAC MONITORING SHOWS AFIB, BP STABLE c MAP > 65. ON 1.5LPM O2 VIA NC c SATURATIONS > 92%. CPT PERFORMED THIS SHIFT. PT CONTINUES TO HAVE WEAK PRODUCTIVE COUGH. FREE WATER FLUSH INCREASED PER DR. BELTRAN, RECTAL TUBE AND MAX MITTAL PA'ED FOR IMPROVEMENT IN BOWEL MOVEMENT CONSISTENCY. ONE SMALL BOWEL MOVEMENT THIS SHIFT, PT UTILIZED BEDPAN. TEMP HERRON REMOVED, PUREWICK IN PLACE. STILL EDMATOUS THROUGHOUT, LIMBS FLOATED c TURNS. WILL CONTINUE TO MONITOR AND REPORT TO ONCOMING RN.
[2024-05-02] MEDS ORDERED: Lansoprazole 15 MG TAB.RAP.DR PT SCH (21:00)
[2024-05-03] VITALS: BP 102/58
[2024-05-03 04:00] VITALS: BP 102/55
[2024-05-03 04:25] LABS: BASOPHILS ABSOLUTE AUTO 0.02 K/mm3 (0.00-0.23); BASOPHILS PERCENT AUTO 0 % (0-2); EOSINOPHILS ABSOLUTE AUTO 0.15 K/mm3 (0.00-0.68); EOSINOPHILS PERCENT AUTO 2 % (0-6); Hemoglobin 7.6 g/dL (11.5-16.0); IMMATURE GRAN ABSOLUTE AUTO 0.07 K/mm3 (0.00-0.10); IMMATURE GRAN PERCENT AUTO 1 % (0-1); LYMPHOCYTES PERCENT AUTO 9 % (21-46); MONOCYTES ABSOLUTE AUTO 0.39 K/mm3 (0.16-1.47); MONOCYTES PERCENT AUTO 4 % (4-13); Mean Corpuscular HGB 35.2 pg (26.0-34.0); Mean Corpuscular Volume 107 fL (80-100); Mean Platelet Volume 11.3 fL (9.1-12.4); NEUTROPHILS ABSOLUTE AUTO 8.02 K/mm3 (1.96-9.15); NEUTROPHILS PERCENT AUTO 85 % (41-73); RDW Coefficient Variation 19.9 % (11.7-14.2); RDW Standard Deviation 73.6 fL (35.1-46.3); Red Blood Cell Count 2.16 M/mm3 (3.80-5.20); White Blood Cell Count 9.45 K/mm3 (4.00-11.30)
[2024-05-03 04:28] LABS: Platelet Count 40 K/mm3 (150-400)
[2024-05-03 04:42] LABS: Albumin/Globulin Ratio 0.6 (0.8-1.8); Bilirubin, Total 6.8 mg/dL (0.1-1.0); Bun/Creatinine Ratio 48.1 (12.0-20.0); Calcium, Blood 7.8 mg/dL (8.5-10.1); Creatinine, Blood 0.83 mg/dL (0.40-1.00); Globulin, Blood 3.6 g/dL (2.2-4.0); Potassium, Blood 3.7 mmol/L (3.5-5.5); Total Protein, Blood 5.6 g/dL (6.4-8.2)
[2024-05-03 05:26] VITALS: BP 104/73
--- NOTE | 2024-05-03 06:24 | NUR ---
SHIFT SUMMARY PT REMAINS CONFUSED, FOLLOWS COMMANDS, ABLE TO MAKE NEEDS KNOWN, TURNED AND REPOSITIONED EVERY 2 HOURS, PT DID SLEEP FROM 2200 UNTIL NOW AFTER SEROQUEL GIVEN PER EMAR, AFIB RHYTHM 70-90sM BP STABLE, TMAX 99.1 F, ON 2 LPM NC WITH SPO2 >90%, WEAK CONGESTED MOIST NONPRODUCTIVE COUGH, INCONTINENT X1 OF BM, PUREWICK IN PLACE, PT DID NOT VOID BY 0000,AND UNABLE TO VOID AFTER TRYING AND STATES " I DONT REALLY FEEL LIKE I NEED TO GO" BLADDER SCAN DONE WITH NOTED >600 ML , STRAIGHT CATH DONE WITH 725 ML ANTONIA URINE RETURNED, PUREWICK REPLACED , PT DID NOT VOID BY 0600 AND DENIED NEED TO URINATE, BRIEF CLEAN AND DRY AND PUREWICK IN PLACE, BLADDER SCAN DONE WITH NOTED 289 ML, NO STRAIGHT CATH DONE AT THIS TIME PER BLADDER MANAGEMENT ORDERS, HOB UP 45 DEGREES, SIDE RAILS UP X3 CALL LIGHT IN REACH
[2024-05-03 08:10] LABS: Magnesium, Blood 1.8 mg/dL (1.6-2.4); Phosphorus, Blood 2.4 mg/dL (2.5-4.9)
[2024-05-03 08:12] VITALS: BP 107/74
[2024-05-03] MEDS ORDERED: Digoxin 0.125 MG Tab PO SCH (09:00)
[2024-05-03] MEDS ORDERED: Empagliflozin 10 MG TAB PO SCH (09:00)
[2024-05-03 12:14] VITALS: BP 101/60
--- NOTE | 2024-05-03 13:07 | NUR ---
REASSESSMENT PT HAS BEEN ALERT AND ORIENTED TO PERSON AND PLACE THIS MORNING. SHE GOT UP TO THE COMMODE WITH THE LIFT AFTER SHE WASN'T ABLE TO VOID ON THE BEDPAN THIS MORNING. AFTER THAT SHE HAS BEEN IN THE CHAIR, WORKED WITH PHYSICAL THERAPY AND SPEECH THERAPY. ENCOURAGED USE OF HER FLUTTER AND INCENTIVE SPIROMETER. PT WAS ABLE TO DEMONSTRATE HOW TO USE EACH OF THEM. LUNGS ARE STILL COARSE, WEAK, NONPRODUCTIVE COUGH. REMAINS IN AFIB, RATE IN THE 80S, BP STABLE WITH MAP 70 CURRENTLY. 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 [facility]IEF CONTROLLER CENTER MET WITH PT TRYING TO FIND FOODS SHE WILL EAT. PT'S HAS BEEN AT THE BEDSIDE THIS MORNING AND BEEN UPDATED.
[2024-05-03] MEDS ORDERED: Calcium Carbonate 500 MG Tab Chew PO PRN (15:25)
[2024-05-03 16:03] VITALS: BP 111/73
[2024-05-03] MEDS ORDERED: Simethicone 80 MG Chew PO PRN (18:15)
--- NOTE | 2024-05-03 18:21 | NUR ---
SHIFT SUMMARY PT HAS BEEN ALERT AND ORIENTED TO PERSON AND PLACE THIS SHIFT. HER LUNGS CONTINUE TO BE COARSE, BUT SHE WAS ABLE TO BE TITRATED OFF OF OXYGEN THIS MORNING AND HAS REMAINED ON RA. SHE HAS A PERSISTENT, NONPRODUCTIVE COUGH. FLUTTER VALVE AND INCENTIVE SPIROMETER ENCOURAGED TODAY. SHE HAS BEEN UP TO THE CHAIR THIS MORNING, BUT WAS TIRED AND DID'T WANT TO GET UP THIS AFTERNOON. SHE GOT UP TO THE COMMODE THIS AFTERNOON THOUGH. REMAINS IN AFIV, RATE IN THE 90S, MAP 83 CURRENTLY. POOR APPETITE, TF INFUSING. PT WAS HAVING INDIGESTION, THEN BLOATING/GAS PAIN. SPOKE WITH DR. BELTRAN AND ORDERS RECEIVED FOR TUMS AND SIMETHICONE.
[2024-05-04] VITALS (10 sets, daily range): BP systolic 99–122; BP diastolic 59–80
[2024-05-04 04:16] LABS: BASOPHILS ABSOLUTE AUTO 0.02 K/mm3 (0.00-0.23); BASOPHILS PERCENT AUTO 0 % (0-2); EOSINOPHILS ABSOLUTE AUTO 0.16 K/mm3 (0.00-0.68); EOSINOPHILS PERCENT AUTO 2 % (0-6); Hematocrit 23.4 % (33.0-51.0); Hemoglobin 7.7 g/dL (11.5-16.0); IMMATURE GRAN ABSOLUTE AUTO 0.08 K/mm3 (0.00-0.10); IMMATURE GRAN PERCENT AUTO 1 % (0-1); LYMPHOCYTES ABSOLUTE AUTO 0.92 K/mm3 (0.84-5.20); LYMPHOCYTES PERCENT AUTO 10 % (21-46); MONOCYTES ABSOLUTE AUTO 0.37 K/mm3 (0.16-1.47); MONOCYTES PERCENT AUTO 4 % (4-13); Mean Corpuscular HGB 34.7 pg (26.0-34.0); Mean Corpuscular HGB Conc 32.9 g/dL (31.5-36.5); Mean Corpuscular Volume 105 fL (80-100); Mean Platelet Volume 12.5 fL (9.1-12.4); NEUTROPHILS ABSOLUTE AUTO 7.54 K/mm3 (1.96-9.15); NEUTROPHILS PERCENT AUTO 83 % (41-73); RDW Coefficient Variation 20.3 % (11.7-14.2); Red Blood Cell Count 2.22 M/mm3 (3.80-5.20); White Blood Cell Count 9.09 K/mm3 (4.00-11.30)
[2024-05-04 04:20] LABS: Platelet Count 39 K/mm3 (150-400)
[2024-05-04 04:34] LABS: Albumin, Blood 1.9 g/dL (3.4-5.0); Albumin/Globulin Ratio 0.5 (0.8-1.8); Bilirubin, Total 7.1 mg/dL (0.1-1.0); Bun/Creatinine Ratio 43.7 (12.0-20.0); Creatinine, Blood 0.92 mg/dL (0.40-1.00); Magnesium, Blood 1.8 mg/dL (1.6-2.4); Phosphorus, Blood 2.9 mg/dL (2.5-4.9); Potassium, Blood 3.7 mmol/L (3.5-5.5); Total Protein, Blood 5.9 g/dL (6.4-8.2)
--- NOTE | 2024-05-04 06:15 | NUR ---
SHIFT SUMMARY: NO SIGNIFICANT OVERNIGHT EVENTS OR CHANGE IN CONDITION. PT PLTS AND HGB REMAIN LOW, BUT HAVE NOT CONTINUED TO DROP. SHE IS TACHYPNEIC WITH COARSE LUNG SOUNDS BUT DENIES FEELING SOB. SHE HAS A WEAK BUT PRODUCTIVE COUGH, COUGH IS GETTING STRONGER. PT ATTEMPTING TO DRINK AND EAT MORE, BUT LACKS APPETITE. SHE IS MOTIVATED TO GET THE DOBHOFF OUT THOUGH. PT IS APPROPRIATE AND ABLE TO MAKE NEEDS KNOWN. AFIB ON THE MONITOR WITH A RATE 70S-90S. BLOOD PRESSURE STABLE. SHE HAS NOT HAD ENOUGH STRENGTH TO GET ON BED CHANG OR USE COMMODE, PUREWICK IN PLACE.
--- NOTE | 2024-05-04 10:24 | NUR ---
Transfer Report torrie Diaz RN. Pt transferred to PCU 18 via WC with aide and RN. Lift used to transfer pt to recliner in PCU. Pt's was informed of pt's new room number. All belongings transferred with pt.
[2024-05-04] MEDS ORDERED: Potassium Chloride 10 Meq Tablet SA PO STA (13:53)
[2024-05-04] MEDS ORDERED: Furosemide 10 MG / ML 2ML Vial IV STA (13:54)
--- NOTE | 2024-05-04 13:57 | NUR ---
Spritual Care Visit. Pt. is awake and sitting up in a chir when she welcomes my visit. Pt. displays evidence of being weak, so this local owner operator truck driver kept the visit short. facililtated a short discusstion about her family. Considered matters of her family business since she has been in the hospital. This local owner operator truck driver affirmed that the Pt. is a miracle. Pt. presented as somnolent, but verbalized gratitude for the spiritual care visit.
[2024-05-04] MEDS ORDERED: Furosemide 10 MG / ML 2ML Vial IV ONE (17:00)
[2024-05-04] MEDS ORDERED: NS 500 ML IV SCH (17:15)
--- NOTE | 2024-05-04 18:06 | NUR ---
SHIFT NOTE: PT ALERT AND ORIENTED WITH SLURRED SPEECH. SHE IS WEAK AND REQUIRES STAFF TO TRANSFER HER VIA LIFT TO THE [facility]. HER RIGHT SIDE IS MORE WEAK THAN THE LEFT. SHE IS IN AFIB/FLUTTER 60S. BP STABLE. SHE HAS EDEMA IN HER LOWER EXTRIMITIES AND RIGHT ARM. LASIX ORDERED AND ADMINISTERED PER EMAR. SHE IS ON RA WITH COARSE LUNG JACOB AND A WEAK NONPRODUCTIVE COUGH. PT EDUCATED ON USE OF IS AND FLUTTER VALVE. DOBHOFF FEEDING DECREASED TO 20ML/HR PER ORDERS TO PROMOTE ORAL INTAKE. PT TAKES PO MEDS WHOLE WITH THICKENED LIQUIDS ONE AT A TIME. RBCS INFUSING PER ORDERS. CARE CONTINUES, CALL LIGHT IN REACH
[2024-05-05] VITALS (7 sets, daily range): BP systolic 99–118; BP diastolic 62–75
--- NOTE | 2024-05-05 00:56 | NUR ---
PT OOB TO BSC WITH SLING LIFT. PT HAD URINARY AND BOWEL INCONTIENCE IN BED. PT DID URINATE AND HAVE MORE BM IN BSC. NOTED KCL 10MEQ PILLSX2 IN STOOL UNDISSOLVED/UNDIGESTED.
[2024-05-05 04:08] LABS: Hematocrit 28.6 % (33.0-51.0); Hemoglobin 9.5 g/dL (11.5-16.0); Mean Corpuscular HGB 32.9 pg (26.0-34.0); Mean Corpuscular HGB Conc 33.2 g/dL (31.5-36.5); Mean Platelet Volume 11.6 fL (9.1-12.4); RDW Coefficient Variation 23.7 % (11.7-14.2); RDW Standard Deviation 84.4 fL (35.1-46.3); Red Blood Cell Count 2.89 M/mm3 (3.80-5.20); White Blood Cell Count 9.72 K/mm3 (4.00-11.30)
[2024-05-05 04:16] LABS: Mean Corpuscular Volume 99 fL (80-100); Platelet Count 46 K/mm3 (150-400)
[2024-05-05 04:37] LABS: Magnesium, Blood 2.3 mg/dL (1.6-2.4)
[2024-05-05 04:38] LABS: Albumin, Blood 1.9 g/dL (3.4-5.0); Albumin/Globulin Ratio 0.5 (0.8-1.8); Bilirubin, Total 7.1 mg/dL (0.1-1.0); Bun/Creatinine Ratio 47.4 (12.0-20.0); Calcium, Blood 8.4 mg/dL (8.5-10.1); Creatinine, Blood 0.89 mg/dL (0.40-1.00); Globulin, Blood 4.2 g/dL (2.2-4.0); Phosphorus, Blood 3.3 mg/dL (2.5-4.9); Potassium, Blood 3.4 mmol/L (3.5-5.5); Total Protein, Blood 6.1 g/dL (6.4-8.2)
--- NOTE | 2024-05-05 06:36 | NUR ---
PT STABLE THROUGHOUT THE SHIFT. PT REMAINS ON ROOM AIR WITH GOOD SPO2 SAT BUT CONTINUES TO BE TACHYPNEIC. PT OOB TO BSC BY SLING LIFT SEVERAL TIMES THIS SHIFT. PT HAD GOOD URINARY OUTPUT AND SEVERAL SMALL, LOOSE BMS. PT WAS INCONTIENT X1 OF BOTH. PICC LINES REMAINS INTACT, ALL LINES DRAW AND FLUSH WELL. PT TOLERATED PRBC X1 WELL. PT REMAINS ON CONTINOUS TUBE FEEDS AND FLUSHES, TOLERATING WELL. TUBE INSERTION SITE AT NARE REMAINS INTACT. SCDS IN PLACE DURING SHIFT. NO S/S BLEEDING AND IMPROVED PLATELET COUNT THIS AM LAB DRAW. PT AOX3 AND ABLE TO USE CALL LIGHT APPROPRIATELY AND ABLE TO MAKE NEEDS KNOWN. NO C/O CHEST PAIN OR INCREASED DYSPNEA. PT CONTINUES TO HAVE COARSE LUNG SOUNDS IN ALL JACOB.
[2024-05-05] MEDS ORDERED: Potassium Chloride 20 MEQ/15 ML UDC PO ONE (09:00)
[2024-05-05] MEDS ORDERED: Furosemide 10 MG/ML 4ML Vial IV SCH (09:00)
[2024-05-05] MEDS ORDERED: Potassium Chloride 10 Meq Tablet SA PO SCH (09:00)
--- NOTE | 2024-05-05 09:50 | NUR ---
AM NOTES; PT AT THE BEDSIDE THIS MORNING. PT WAS ALREADY UP IN THE RECLINER. SPEECH THERAPIST ABLE TO WORK WITH HE PT, DIET ADVANCED TO SOFT BITE SIZE DIET. PO MEDS TOLERATED WELL. TF AT 20MLS/HR. PT LISY TO USE BEDSIDE COMMODE VIA LIFT. PT ABLE TO VOID AND HAVE A BM, ORAL CARE PROVIDED. PT DENIES ANY COMPLAINS AT THIS TIME. VITALS HRR AFIB 40-60'S DIGOXIN HELD THIS MORNING PER PARAMETERS. SBP 100'S WITH MAP >65, TEMP 96.0. TACHYPNEIC IN THE 40'S HAS A MOIST NON PRODUCTIVE COUGH. NO OTHR ISSUES AT THIS TIME, WILL CONTINUE TO MONITOR
--- NOTE | 2024-05-05 17:11 | NUR ---
PT SUMMARY; PT ALERT AND ORIENTED X3, SLOW TO RESPOND AND GARBLED SPEECH AT TIMES. PT HAS BEEN UP IN THE RECLINER T/O SHIFT PT HAS BEEN USING BEDSIDE COMMODE FOR TOILETING, PT KEEPS HAVING SMALL LOOSE BMS WITH URINE. USES LIFT TO TRANSFER TO COMMODE. PT IS VERY WEAK, ABLE TO USE LEFT HAND/ARM TO EAT BUT GETS TIRED QUICK, CAN MOVE RIGHT ARM A LITTLE BIT. PT HAS GENERALIZED EDEMA AND JAUNDICE. PT STILL HAS POOR APPETITE, TF INFUSING AT 20MLS/HR VIA DOBHOFF, ANALYTICAL CONSULTANT NOT RECOMMENDING TO STOP TUBE FEEDING AT THIS TIME DUE TO POOR APPETITE, DIET ADVANCE TO SOFT SIZE DIET, TOLERATING WELL. AND FAMILY AT THE BEDSIDE TODAY AWARE OF THE PLAN OF CARE, PT ABLE TO PARTICIPATE WITH THERAPY. VITALS HRR AFIB 50-60'S, SBP 100-115, SATS ABOVE 90% ON RA, AFEBRILE. NO OTHER ISSUES REPORTED FOR THE SHIFT, WILL REPORT TO ONCOMING SHIFT
[2024-05-06] VITALS (8 sets, daily range): BP systolic 98–116; BP diastolic 67–81
[2024-05-06 04:50] LABS: BASOPHILS ABSOLUTE AUTO 0.04 K/mm3 (0.00-0.23); BASOPHILS PERCENT AUTO 1 % (0-2); EOSINOPHILS ABSOLUTE AUTO 0.22 K/mm3 (0.00-0.68); EOSINOPHILS PERCENT AUTO 3 % (0-6); Hematocrit 28.2 % (33.0-51.0); Hemoglobin 9.5 g/dL (11.5-16.0); IMMATURE GRAN ABSOLUTE AUTO 0.04 K/mm3 (0.00-0.10); IMMATURE GRAN PERCENT AUTO 1 % (0-1); LYMPHOCYTES ABSOLUTE AUTO 1.35 K/mm3 (0.84-5.20); LYMPHOCYTES PERCENT AUTO 17 % (21-46); MONOCYTES ABSOLUTE AUTO 0.41 K/mm3 (0.16-1.47); MONOCYTES PERCENT AUTO 5 % (4-13); Mean Corpuscular HGB 33.2 pg (26.0-34.0); Mean Corpuscular HGB Conc 33.7 g/dL (31.5-36.5); Mean Corpuscular Volume 99 fL (80-100); Mean Platelet Volume 11.4 fL (9.1-12.4); NEUTROPHILS ABSOLUTE AUTO 6.11 K/mm3 (1.96-9.15); NEUTROPHILS PERCENT AUTO 75 % (41-73); RDW Coefficient Variation 23.6 % (11.7-14.2); RDW Standard Deviation 82.8 fL (35.1-46.3); Red Blood Cell Count 2.86 M/mm3 (3.80-5.20); White Blood Cell Count 8.17 K/mm3 (4.00-11.30)
--- NOTE | 2024-05-06 05:05 | NUR ---
SHIFT SUMMARY PT IS ALERT AND ORIENTED TO SELF, , SITUATION, BUT DOESN T REMEMBER DATE. SHE ALSO SEEMS TO GET DAYS AND EVENTS OF CARE MIXED UP. SHE IS COOPERATIVE WITH CARE AND OBEYS COMMANDS. PT DENIES CHEST PAIN/PRESSURE. AFIB IN [address] FOR DVT PROPHYLAXIS. ON RA, SATS ABOVE 90%, LUNG SOUNDS COARSE PT HAD BM IN CHAIR WHILE SLEEPING, STOOL WAS LIQUID AND DARK BROWN, NO FOUL SMELL NOTED. PT ALSO USED BED SIDE COMMODE FOR TOILETING. LIFT WAS USED TO TRANSFER PT FROM CHAIR TO BED AND BED TO COMMODE. PT IS MODERATELY JAUNDICED. SOME SCATTERED BRUISING, OTHERWISE SKIN INTACT T/O. NO ACUTE EVENTS THIS SHIFT.
[2024-05-06 05:10] LABS: Platelet Count 50 K/mm3 (150-400)
[2024-05-06 05:21] LABS: Albumin/Globulin Ratio 0.5 (0.8-1.8); Bilirubin, Total 6.8 mg/dL (0.1-1.0); Bun/Creatinine Ratio 43.4 (12.0-20.0); Calcium, Blood 8.6 mg/dL (8.5-10.1); Creatinine, Blood 0.85 mg/dL (0.40-1.00); Globulin, Blood 4.2 g/dL (2.2-4.0); Potassium, Blood 3.3 mmol/L (3.5-5.5); Total Protein, Blood 6.2 g/dL (6.4-8.2)
[2024-05-06] MEDS ORDERED: Albumin (Human) 25gm/100ml 100 ML IV SCH (08:30)
[2024-05-06] MEDS ORDERED: Potassium Chloride 20 MEQ/15 ML UDC PO SCH (09:30)
[2024-05-06 14:09] LABS: Digoxin (Lanoxin) 1.12 ug/mL (0.80-2.00)
[2024-05-06] MEDS ORDERED: Lactulose 20 GM/30 ML UDC PO SCH ×3 (14:50→21:00)
--- NOTE | 2024-05-06 18:53 | NUR ---
SHIFT SUMMATY: NUERO: PT ALERT TO SELF AND FAMILY. PT REPORTS FEELING MORE TIRED THIS EVENING. NO OTHER CHANGES CARDIAC: PT WAS FOUND TO BE HYPOTENSIVE AT THE BEGINNING OF THE SHIFT AND WAS ON THE BEAR HUGGER FOR MOST OF THE SHIFT. PTS TEMP FINALLY CAME T0 96.5 THIS EVENING WHEN PT WAS REQUESTING A BREAK FROM WARMING BLANKET. RESP: PT CONTINUES TO HAVE A WEAK COUGH AND BEING UNABLE TO CLEAR AIRWAY. THIS MAKING IT DIFFICULT TO DETERMINE ACCURATE LUNG SOUNDS. PT TACYNEPTIC ALL DAY. REMAINED ON RA. GI/: PT STARTED ON LACTULOSE THIS EVENING. HAS BEEN ABLE TO VOID ALL SHIFT. PT AGREEABLE TO A RECTAL TUBE. PTS DOBHOFF WAS REPLACED TODAY DUE TO IT BECOMING CLOGGED. SKIN: PT JAUNDICED AND PALE. N
[2024-05-06 19:38] LABS: Campylobacter Sp Not Detected (NOT DETECT)
[2024-05-06 19:39] LABS: Adenovirus F 40/41 Not Detected (NOT DETECT); Astrovirus Not Detected (NOT DETECT); Cryptosporidium Not Detected (NOT DETECT); Cyclospora Cayetanensis Not Detected (NOT DETECT); E. Coli O157 Not Detected (NOT DETECT); Entamoeba Histolytica Not Detected (NOT DETECT); Enteroaggregative E. coli-EAEC Not Detected (NOT DETECT); Enteropathogenic E. coli-EPEC Not Detected (NOT DETECT); Enterotoxigenic E. coli-ETEC Not Detected (NOT DETECT); Giardia Lamblia Not Detected (NOT DETECT); Norovirus GI/GII Not Detected (NOT DETECT); Plesiomonas Shigelloides Not Detected (NOT DETECT); Rotavirus A Not Detected (NOT DETECT); Salmonella Sp Not Detected (NOT DETECT); Sapovirus Not Detected (NOT DETECT); Shiga Toxin-prod E. coli-STEC Not Detected (NOT DETECT); Shigella/Enteroin E. coli-EIEC Not Detected (NOT DETECT); Vibrio Cholerae Not Detected (NOT DETECT); Vibrio Sp Not Detected (NOT DETECT); Yersinia Enterocolitica Not Detected (NOT DETECT)
[2024-05-06] MEDS ORDERED: OxyCODONE HCL 5 MG TAB PO PRN (23:10)
[2024-05-06] MEDS ORDERED: Ondansetron HCl 2 MG / ML 2ML Vial IV PRN (23:10)
[2024-05-07] VITALS (42 sets, daily range): BP systolic 72–113; BP diastolic 39–90
--- NOTE | 2024-05-07 | NUR ---
PT O2 SATURATION DROPPED INTO 70'S ON RA, DID NOT RECOVER AFTER REPOSITIONING. PT PLACED ON 3L NC, PT EVENTUALLY RECOVERED. O2 SATS NOW IN THE 90'S. PT RESTING COMFORTABLY IN BED.
[2024-05-07] MEDS ORDERED: Naloxone HCl 0.4MG / ML 1ML Vial IV ONE (04:25)
[2024-05-07] MEDS ORDERED: Naloxone HCl 0.4MG / ML 1ML Vial ONE ×2 (04:29→04:32)
[2024-05-07] MEDS ORDERED: Naloxone HCl 1MG / ML 2ML SYR IV ONE (04:30)
[2024-05-07] MEDS ORDERED: NS 500 ML IV ONE (04:30)
[2024-05-07] MEDS ORDERED: NS 1,000 ML IV ONE ×2 (04:31→05:10)
[2024-05-07] MEDS ORDERED: NS 1,000 ML BAG IR ONE (04:35)
[2024-05-07 04:46] LABS: Base Excess Venous -2.5 mmol/L; Bicarbonate Venous 21.9 mmol/L (24.0-30.0); PCO2 Venous 61.6 mmHg (38-42); pH Blood Venous 7.22 (7.34-7.37)
[2024-05-07 04:58] LABS: BASOPHILS ABSOLUTE AUTO 0.06 K/mm3 (0.00-0.23); BASOPHILS PERCENT AUTO 1 % (0-2); EOSINOPHILS ABSOLUTE AUTO 0.28 K/mm3 (0.00-0.68); EOSINOPHILS PERCENT AUTO 3 % (0-6); Hematocrit 26.2 % (33.0-51.0); Hemoglobin 8.5 g/dL (11.5-16.0); IMMATURE GRAN ABSOLUTE AUTO 0.07 K/mm3 (0.00-0.10); IMMATURE GRAN PERCENT AUTO 1 % (0-1); LYMPHOCYTES ABSOLUTE AUTO 1.52 K/mm3 (0.84-5.20); LYMPHOCYTES PERCENT AUTO 17 % (21-46); MONOCYTES ABSOLUTE AUTO 0.61 K/mm3 (0.16-1.47); MONOCYTES PERCENT AUTO 7 % (4-13); Mean Corpuscular HGB 33.3 pg (26.0-34.0); Mean Corpuscular HGB Conc 32.4 g/dL (31.5-36.5); Mean Corpuscular Volume 103 fL (80-100); Mean Platelet Volume 11.9 fL (9.1-12.4); NEUTROPHILS ABSOLUTE AUTO 6.32 K/mm3 (1.96-9.15); NEUTROPHILS PERCENT AUTO 71 % (41-73); RDW Coefficient Variation 24.1 % (11.7-14.2); RDW Standard Deviation 87.9 fL (35.1-46.3); Red Blood Cell Count 2.55 M/mm3 (3.80-5.20); White Blood Cell Count 8.86 K/mm3 (4.00-11.30)
--- NOTE | 2024-05-07 05:09 | NUR ---
TRANSFER SUMMARY PT TO ICU ROOM 11 FROM PCU 18. BEDSIDE REPORT FROM REINALDO VILLEGAS. PT IS MINIMALLY ROUSIBLE TO STERNAL RUB. PLACED ON BIPAP ON ARRIVAL TO ROOM. RR 38, PT PULLIING LOW TIDAL VOLUMES. DR. DARLING TO ROOM, PLAN TO INTUBATE PT. LEVOPHED INITIATED, CURRENTLY RUNNING AT 16MCG/MIN.
--- NOTE | 2024-05-07 05:16 | NUR ---
EVENT/CHANGE IN CONDITION AT APPROX 0420, THIS RN ENTERED PT ROOM TO ASSESS PT AND OBTAIN VITALS. PT WAS FOUND TO BE UNRESPONSIVE WITH SEVERAL CONSECUTIVE SYSTOLIC BPS IN 70'S AND MAPS IN 50'S. SATTING 88-89% ON 4L NC. LAYUP WORKERMUSIC ENGRAVERALICIA PELAEZ AND ICU FLEXOGRAPHIC PRESS OPERATOR LAURA NOTIFIED AND TO BEDSIDE IMMEDIATELY. MD DARLING NOTIFIED AND INTO PT ROOM AT APPROX 0427. PT BRIEFLY ABLE TO OPEN EYES WITH STERNAL RUB. PT HAD RECEIVED OXYCODONE AT 2355 ON 05/06, 0.4MG NARCAN ADMINISTERED AT 042, NO CHANGE IN PT CONDITION. 500ML NS BOLUS BEGAN AT 043. 1MG NARCAN ADMINISTERED AT 043, AGAIN NO CHANGE IN PT CONDITION. CBG AT 0443 WITH VALUE OF 133. VBG AND LABS DRAWN. VBG SHOWED PH OF 7.22, PCO2 OF 61.6 AT 0442. PT TRANSFERRED TO ICU AT 0448 ON 4L NC. REPORT GIVEN TO IRRIGATION EQUIPMENT REMOVER MASSIEL . PTS FAMILY NOTIFIED AT 0500 BY ICU CHARGE RICHIE.
[2024-05-07 05:19] LABS: Platelet Count 50 K/mm3 (150-400)
--- NOTE | 2024-05-07 05:23 | NUR ---
INTUBATION SUMMARY DR. DARLING AT BEDSIDE W/ GAIL AND BRIONNA RT. PT INTUBATED W/ 10MG ETOMIDATE AND 80MG ROCURONIUM. SIZE 7.5 ETT, 24 @TEETH.
[2024-05-07] MEDS ORDERED: Midazolam HCL 50 MG in NS 40 ML IV PRN (05:30)
[2024-05-07 05:35] LABS: Albumin, Blood 2.4 g/dL (3.4-5.0); Albumin/Globulin Ratio 0.6 (0.8-1.8); Bilirubin, Total 6.3 mg/dL (0.1-1.0); Bun/Creatinine Ratio 36.9 (12.0-20.0); Calcium, Blood 8.2 mg/dL (8.5-10.1); Creatinine, Blood 1.03 mg/dL (0.40-1.00); Globulin, Blood 3.7 g/dL (2.2-4.0); Potassium, Blood 3.7 mmol/L (3.5-5.5); Total Protein, Blood 6.1 g/dL (6.4-8.2)
[2024-05-07] MEDS ORDERED: Piperacillin/Tazobactam Sod 4.5 GM in NS 100 ML IV SCH (05:39)
[2024-05-07] MEDS ORDERED: Etomidate 2MG / ML 10ML Vial IV ONE (06:50)
[2024-05-07] MEDS ORDERED: Rocuronium Bromide 10 MG/ML 5ML Injection IV ONE (06:50)
[2024-05-07 06:53] LABS: Base Excess Venous -2.2 mmol/L; Bicarbonate Venous 22.5 mmol/L (24.0-30.0); PCO2 Venous 46.5 mmHg (38-42); pH Blood Venous 7.32 (7.34-7.37)
--- NOTE | 2024-05-07 11:45 | NUR ---
REASSESSMENT PT REMAINS INTUBATED. SEDATION TURNED OFF ABOUT [address] PERLA'S ROUNDS. PT SQUEEZES HANDS TO COMMAND, APPEARS TO TRY TO OPEN HER EYES TO VOICE. PUPILS NOW 3MM, BUT STILL SLUGGISH. FACE IS RELAXED AND PT APPEARS COMFORTABLE. LUNGS REMAIN COARSE. FIO2 TITRATED DOWNT O 30% THROUGHOUT THE MORNING AND SPO2 CURRENTLY 100%. AFIB WITH RATE IN THE 90S. SPOKE WITH DR. PERLA AND TUBE FEED RESTARTED. ALSO HELD LACTULOSE PER DR. PERLA SINCE PT IS HAVING LIQUID STOOL. HERRON DRAINING YELLOW URINE. PT'S AND FAMILY MEMBERS HAVE BEEN AT THE BEDSIDE AND UPDATED BY DR. PERLA AND NURSING STAFF.
[2024-05-07] MEDS ORDERED: Hydrogen Peroxide 1.5 % Solution MT SCH (12:00)
--- NOTE | 2024-05-07 14:12 | NUR ---
SPOKE WITH PT'S AT BEDSIDE. HE STATES REGRET FOR ALLOWING HER TO BE INTUBATED A SECOND TIME, BUT RECOGNIZES THAT SHE MAY NOT BE ABLE TO TO WEAN FROM THE VENTILATOR. HER PARENTS ARE COMING FROM OUT OF TOWN, AND MALGORZATA TAKES SOLACE IN KNOWING SHE WILL BE SURROUNDED BY LOVED ONES IF SHE IS LIBERATED. MALGORAZTA HAS ALREADY SPOKE WITH BUSINESS WRITER, AND UNDERSTANDS THE CHANCES OF PT'S RECOVERY AT THIS POINT ARE SLIM. PALLIATIVE CARE WILL REMAIN AVAILABLE.
--- NOTE | 2024-05-07 14:50 | NUR ---
PT'S FAMILY ASKED TO SPEAK WITH DR. PERLA ABOUT SWITCHING TO COMFORT CARE. DR. PERLA CAME TO THE BEDSIDE AND MET WITH PT'S . AFTER DISCUSSION, PLAN IS TO MOVE TOWARDS COMFORT CARE THIS AFTERNOON. COMMERCIAL INTERN TERMINAL MAKE UP OPERATOR NOTIFIED AND IS COMING IN TO BE WITH PT AND HER FAMILY.
[2024-05-07] MEDS ORDERED: Scopolamine Hydrobromide Patch TOP PRN (15:05)
[2024-05-07] MEDS ORDERED: LORazepam 1 MG Tab PO PRN (15:05)
[2024-05-07] MEDS ORDERED: Atropine Sulfate 1% Opth Soln 2ML BTL SL PRN (15:05)
[2024-05-07] MEDS ORDERED: Morphine Sulfate 20 MG/1ML 1 ML Oral Syringe SL PRN (15:05)
[2024-05-07] MEDS ORDERED: LORazepam 2 MG/ML 1ML Injection IV PRN (15:05)
[2024-05-07] MEDS ORDERED: Morphine Sulfate 10 MG/ML 1MLSYR IV PRN (15:05)
[2024-05-07] MEDS ORDERED: HYDROmorphone HCl 0.5 MG/0.5 ML SYR IV PRN (15:05)
--- NOTE | 2024-05-07 15:43 | NUR ---
EXTUBATE PT'S STATED THAT HIM AND PT'S FAMILY ARE READY TO MOVE TO COMFORT CARE. RT NOTIFIED AND PT MEDICATED WITH MORPHINE, THEN PT EXTUBATED AT 1537. CONFIRMED WITH PT'S THAT HE WANTS FULL COMFORT CARE, SO LEVOPHED TURNED OFF AND TUBE FEED DISCONTINUED. SNUFF CONTAINER INSPECTOR AT THE BEDSIDE WITH MULTIPLE FAMILY MEMBERS. PT APPEARS TO BE RESTING COMFORTABLE WITH A RELAXED FACE AND UNLABORED BREATHING.
--- NOTE | 2024-05-07 15:48 | NUR ---
PT LIBERATED FROM THE VENTILATOR. TRASH HAULER AT BEDSIDE WITH MULTIPLE FAMILY MEMBERS PRESENT. BEDSIDE RN MEDICATING PT FOR COMFORT. PC WILL REMAIN AVAILABLE NEEDED.
--- NOTE | 2024-05-07 17:16 | NUR ---
Versed waste: 40ml of Versed gtt wasted at this time. This RN and Fabiana Cisneros RN to witness.
--- NOTE | 2024-05-07 17:29 | NUR ---
SHIFT SUMMARY PT WAS EXTUBATED TO COMFORT CARE THIS AFTERNOON. SHE HAD BEEN OFF SEDATION SINCE ABOUT 0900. SHE WOULD FOLLOW COMMANDS TO SQUEEZE HANDS, BUT NOT OPEN HER EYES. GAG REFLEX WAS VERY WEAK. LUNGS REMAINED COARSE. POST EXTUBATION SHE HAS BEEN MEDICATED ONCE TO HELP WITH DYSPNEA. PT'S FAMILY IS AT THE BEDSIDE.
--- NOTE | 2024-05-07 17:45 | NUR ---
call back - Pt plan to be extubated. Multiple family member around including spouse Bill, mother and father, and other members. Space was provided for all to reflect. Family was gathered around and a verbal prayer for comfort and peace was provided. The interventions were well received as evidenced by tears and words of gratefulness. Stepped out to let family have space. Returned at a later time to check in. Family were appreciative of support given.
--- NOTE | 2024-05-07 19:00 | NUR ---
ASSUMED CARE OF PT AT 1900 PT ABLE TO SQUEEZE HAND, BUT DOES NOT OPEN EYES TO VERBAL STIMULI. PT TAKING INFREQUENT, SHALLOW BREATHS. LUNGS COARSE. PRN ATROPINE SL ADMINISTERED FOR SECRETIONS. FAMILY AND AT BEDSIDE.
[2024-05-07] MEDS ORDERED: Cetylpyridinium Chloride 1 EA MISC MT SCH (20:00)
--- NOTE | 2024-05-07 20:20 | NUR ---
TO2019, HOSPITALIST CARMINA NOTIFIED.
== END 2024-05-07 20:20 | DRG 870 ==
LOC: ER 07:45 → ICUE 11:56 → PCU 11:56 → ICUE 12:35 → PCU 05-04 10:30 → ICUE 05-07 04:40
PROVIDERS: Family Medicine; Internal Medicine; Internal Medicine Critical Care Medicine; Physician Assistant; Student in an Organized Health Care Education/Training Program; ADMIT Internal Medicine
PROC: 0BH17EZ Insertion of Endotracheal Airway into Trachea, Via Natural or Artificial Opening (ICD-10-PCS; 2024-04-18)
PROC: 5A12012 Performance of Cardiac Output, Single, Manual (ICD-10-PCS; 2024-04-18)
PROC: 5A09357 Assistance with Respiratory Ventilation, Less than 24 Consecutive Hours, Continuous Positive Airway Pressure (ICD-10-PCS; 2024-04-18)
PROC: 03HY32Z Insertion of Monitoring Device into Upper Artery, Percutaneous Approach (ICD-10-PCS; 2024-04-18)
PROC: 4A133B1 Monitoring of Arterial Pressure, Peripheral, Percutaneous Approach (ICD-10-PCS; 2024-04-18)
PROC: 4A133J1 Monitoring of Arterial Pulse, Peripheral, Percutaneous Approach (ICD-10-PCS; 2024-04-18)
PROC: B548ZZA Ultrasonography of Superior Vena Cava, Guidance (ICD-10-PCS; 2024-04-18)
PROC: 3E033XZ Introduction of Vasopressor into Peripheral Vein, Percutaneous Approach (ICD-10-PCS; 2024-04-18)
PROC: 3E03329 Introduction of Other Anti-infective into Peripheral Vein, Percutaneous Approach (ICD-10-PCS; 2024-04-18)
PROC: 0T9B70Z Drainage of Bladder with Drainage Device, Via Natural or Artificial Opening (ICD-10-PCS; 2024-04-19)
PROC: 0DH67UZ Insertion of Feeding Device into Stomach, Via Natural or Artificial Opening (ICD-10-PCS; 2024-04-20)
PROC: 3E0G76Z Introduction of Nutritional Substance into Upper GI, Via Natural or Artificial Opening (ICD-10-PCS; 2024-04-20)
PROC: 5A1955Z Respiratory Ventilation, Greater than 96 Consecutive Hours (ICD-10-PCS; principal; 2024-04-22)
PROC: 30233N1 Transfusion of Nonautologous Red Blood Cells into Peripheral Vein, Percutaneous Approach (ICD-10-PCS; 2024-04-22)
PROC: 4A133R1 Monitoring of Arterial Saturation, Peripheral, Percutaneous Approach (ICD-10-PCS; 2024-04-22)
PROC: 02HV33Z Insertion of Infusion Device into Superior Vena Cava, Percutaneous Approach (ICD-10-PCS; 2024-04-23)
PROC: 02H633Z Insertion of Infusion Device into Right Atrium, Percutaneous Approach (ICD-10-PCS; 2024-04-23)
PROC: 02HV33Z Insertion of Infusion Device into Superior Vena Cava, Percutaneous Approach (ICD-10-PCS; 2024-04-28)
PROC: 30233J1 Transfusion of Nonautologous Serum Albumin into Peripheral Vein, Percutaneous Approach (ICD-10-PCS; 2024-05-06)
PROC: 5A09357 Assistance with Respiratory Ventilation, Less than 24 Consecutive Hours, Continuous Positive Airway Pressure (ICD-10-PCS; 2024-05-07)
PROC: 0BH17EZ Insertion of Endotracheal Airway into Trachea, Via Natural or Artificial Opening (ICD-10-PCS; 2024-05-07)
PROC: 5A1935Z Respiratory Ventilation, Less than 24 Consecutive Hours (ICD-10-PCS; 2024-05-07)
DX: A41.3 Sepsis due to Hemophilus influenzae (principal); G93.41 Metabolic encephalopathy; R65.21 Severe sepsis with septic shock; J80 Acute respiratory distress syndrome; I50.31 Acute diastolic (congestive) heart failure; J10.08 Influenza due to other identified influenza virus with other specified pneumonia; J14 Pneumonia due to Hemophilus influenzae; J69.0 Pneumonitis due to inhalation of food and vomit; N17.0 Acute kidney failure with tubular necrosis; D68.61 Antiphospholipid syndrome; E87.20 Acidosis, unspecified; D61.818 Other pancytopenia; E87.0 Hyperosmolality and hypernatremia; Z66 Do not resuscitate; Z51.5 Encounter for palliative care; E03.9 Hypothyroidism, unspecified; Z96.653 Presence of artificial knee joint, bilateral; R57.0 Cardiogenic shock; I27.20 Pulmonary hypertension, unspecified; K72.90 Hepatic failure, unspecified without coma; J84.111 Idiopathic interstitial pneumonia, not otherwise specified; I08.1 Rheumatic disorders of both mitral and tricuspid valves; R00.1 Bradycardia, unspecified; R73.9 Hyperglycemia, unspecified; I48.0 Paroxysmal atrial fibrillation; D69.59 Other secondary thrombocytopenia; R53.1 Weakness; K76.0 Fatty (change of) liver, not elsewhere classified; D63.8 Anemia in other chronic diseases classified elsewhere; K74.60 Unspecified cirrhosis of liver; K76.82 Hepatic encephalopathy; R05.3 Chronic cough; E80.6 Other disorders of bilirubin metabolism; R19.7 Diarrhea, unspecified; T68.XXXA Hypothermia, initial encounter; R19.4 Change in bowel habit; S01.511A Laceration without foreign body of lip, initial encounter; R74.01 Elevation of levels of liver transaminase levels; Z79.890 Hormone replacement therapy; Z79.02 Long term (current) use of antithrombotics/antiplatelets; Z79.899 Other long term (current) drug therapy; Z86.73 Personal history of transient ischemic attack (TIA), and cerebral infarction without residual deficits; Z86.711 Personal history of pulmonary embolism; Z87.59 Personal history of other complications of pregnancy, childbirth and the puerperium; Z88.5 Allergy status to narcotic agent; Z95.828 Presence of other vascular implants and grafts
CPT/HCPCS: 31500; 36415; 36430; 36569; 36600; 36620; 51701; 51702; 70450; 71045; 74230; 76700; 78227; 80047; 80048; 80053; 80076; 80162; 80202; 82140; 82330; 82435; 82803; 82947; 83605; 83735; 84100; 84132; 84145; 84295; 85014; 85025; 85027; 85520; 85610; 85730; 86160; 86850; 86900; 86901; 86923; 87040; 87070; 87205; 87428-QW; 87507; 92526; 92610; 92611; 92950; 93005; 93010; 93306; 94002; 94003; 94640; 94660; 94664; 94667; 94668; 94760; 94762; 96374; 96375; 96376; 97110; 97112; 97162; 97166; 97530; 97535; 99291-25; 99292; A9270; A9537; C1751; J0171; J0282; J0456; J0461; J0612; J0696; J1160; J1644; J1650; J1720; J1815; J1940; J2060; J2250; J2270; J2310; J2371; J2405; J2470; J2543; J2704; J2919; J3010; J3370; J3480; J7030; J7040; J7042; J7050; J7060; J7070; P9016; P9047